=== PATIENT | female | born 1945 | race Caucasian/White ===

== ENCOUNTER → 2018-10-25 11:12 | Outpatient (CLI) | payer MEDICARE, OTHER ==
--- NOTE | 2018-10-29 18:38 | ST ---
PATIENT:INDIRA ADAN MEDICAL RECORD: [id number] SEX: F LOCATION:[facility] ORDER #: ADMISSION DATE: 10/25/18 AGE OF PATIENT: 73 REFERRING PHYSICIAN: INTERPRETING PHYSICIAN: NATAILE CARABALLO MD DATE OF SERVICE: 10/25/2018 PROCEDURE: Nuclear Stress Test. INDICATION: Angina, abnormal ECG, shortness of breath. She was exercised on standard Lexiscan protocol with 33 mCi of sestamibi injected at peak stress, 11 mCi used previously for rest images. FINDINGS: Gated SPECT reveals a preserved ejection fraction at 67% with decreased thickening and brightening throughout the anterior segments. SPECT imaging: Cardiolite was used as myocardial perfusion agent. There was a fixed perfusion defect anteriorly, possibly breast artifact, possibly previous myocardial infarction. It definitely improves with stress. There is clearly no evidence of reversible ischemia and the remaining segments with homogeneous uptake at rest and stress. OVERALL IMPRESSION: This is a minimally abnormal nuclear stress test, fixed perfusion defect anteriorly seen on rest images that improves with stress, possibly breast artifact, possibly a previous anterior myocardial infarction. Definitely no reversible ischemia and preserved ejection fraction. TRANSINT:[id number] Voice Confirmation ID: [id number] DOCUMENT ID: [id number] NATALIE CARABALLO MD at 1838 CC: [id number] DICTATION DATE: 10/25/18 1612 PUNCHBOARD STUFFER: 10/26/18 0016 DEP CLI 10/25/18 [facility] [address] [place] [address]
--- NOTE | 2018-10-31 14:03 | EC ---
PATIENT:INDIRA ADAN DATE OF SERVICE: 10/25/18 SEX: F MEDICAL RECORD: [id number] DATE OF : 43 LOCATION:[facility] AGE OF PATIENT: 73 ADMISSION DATE: 10/25/18 REFERRING PHYSICIAN: INTERPRETING PHYSICIAN: KEVIN GARIBAY MD ECHOCARDIOGRAM REPORT ECHO CHARGES 4 ECHO COMPLETE Date: 10/25/18 CLINICAL DIAGNOSIS: MURMUR/TAPIA/ANGINA/ABNORMAL EKG H/O HTN ECHOCARDIOGRAPHIC MEASUREMENTS (adult normal given) AC root (d.<3.7cm) 3.3 cm LV Septum d (<1.2 cm> 1.7 cm Valve Excursion 2.1 cm LV Septum (systole) 2.5 cm Left Atria (s.<4.0cm> 4.7 cm LVPW d(<1.2cm) 1.3 cm RV (d.<2.3cm) 2.9 cm LVPW (sytole) 2.0 cm LV diastole(<5.6CM) 5.9 cm MV E-F(>70mm/sec) cm LV systole 3.3 cm LVOT Diameter 1.9 cm MV exc.(>10mm) cm Est.ejection fraction (50-75%) % DOPPLER: LVIT cm/sec A 130 cm/sec E 102 cm/sec LA cm/sec RVSP 33.0 mmHg LVOT 107 cm/sec AOP1/2T m/s Asc. Ao 217 cm/sec RVOT 87.0 cm/sec RA cm/sec PA 125 cm/sec AV Gradient Peak 19.0 mmHg AV Mean 9.9 mmHg AV Area 1.4 cm MV Gradient Peak 8.0 mmHg MV Mean 3.3 mmHg MV Area cm COMMENTS: OP - HC Photography Professor: 1 CARIN [facility] Pigskin Trimmer: 3 Dr. Olivera TAPE# PACS Pericardial Effusion Y DATE OF SERVICE: Adequate 2D echo, color flow, spectral Doppler, and M-Mode. LVH is present. LV internal dimensions are normal. Wall motion is normal. EF is greater than or equal to 55%. Aortic valve sclerosis with a peak velocity of 19 mmHg putting this in the very mild range. Left atrium is dilated at 4.7 cm. Mitral valve shows no prolapse. Moderate MR. Right-sided chambers grossly normal. Moderate TR. TRANSINT:[id number] Voice Confirmation ID: [id number] DOCUMENT ID: [id number] ECHOCARDIOGRAM REPORT [id number] INDIRA ADAN,KEVIN Ray MD at 1403 CC: [id number] DICTATION DATE: 10/29/18 1255 PROJECT PRODUCTION ENGINEER: 10/29/18 1306 DEP CLI 10/25/18 [place] [id number] [place] [id number]
== END | disposition home or self-care (01) ==
LOC: D.HCCARDIO 11:00
PROVIDERS: ATTEND Internal Medicine Interventional Cardiology
DX: I20.9 Angina pectoris, unspecified (principal)

== ENCOUNTER → 2018-12-19 07:18 | Outpatient (CLI) | payer MEDICARE, OTHER | END | disposition home or self-care (01) | LOC: D.NM 07:18 | PROVIDERS: ATTEND Orthopaedic Surgery | DX: Z96.651 Presence of right artificial knee joint (principal) ==

== ENCOUNTER → 2019-01-08 16:47 | Outpatient (CLI) | payer MEDICARE, OTHER | END | disposition home or self-care (01) | LOC: D.LABREF 16:47 | PROVIDERS: ATTEND Orthopaedic Surgery | DX: M19.012 Primary osteoarthritis, left shoulder (principal) ==

== ENCOUNTER 2019-01-09 14:58 | Inpatient (IN) | payer MEDICARE, OTHER ==
[~2019-01-09] VITALS: Ht 172.7 cm; Wt 136.1 kg
[2019-01-25] MEDS ORDERED: FUROSEMIDE40 MG PO (14:02)
[2019-01-25] MEDS ORDERED: NEURONTIN 300300 MG PO (14:03)
[2019-01-25] MEDS ORDERED: XANAX0.5 MG PO (14:03)
[2019-01-25] MEDS ORDERED: K-TAB10 MEQ PO (14:04)
[2019-01-25] MEDS ORDERED: GLIMEPIRIDE2 MG PO (14:05)
[2019-01-25] MEDS ORDERED: HYDROCODON-ACET15 ML PO (14:06)
[2019-01-25 14:10] LABS: BASOPHILS 0.5 % (0-2); HEMATOCRIT 40.4 % (36.0-48.0); HEMOGLOBIN 13.7 g/dL (12-16); IMMATURE GRANULOCYTES 0.5 % (0-5); LYMPHOCYTES 35.6 % (15-50); MCH 31.7 pg (26.0-34.0); MCHC 33.9 g/dL (31.0-37.0); MCV 93.5 fL (80.0-100.0); MEAN PLATELET VOLUME 10.2 fL (7.4-10.4); MONOCYTES 9.4 % (2-11); PLATELET COUNT 104 10x3/uL (130-400); RBC 4.32 10x6/uL (4.00-5.40); RDW 13.8 % (11.5-14.5); WBC 4.4 10x3/uL (4.8-10.8)
[2019-01-25] MEDS ORDERED: GLUCOPHAGE500 MG PO (14:11)
[2019-01-25] MEDS ORDERED: VOLTAREN75 MG PO (14:12)
[2019-01-25] MEDS ORDERED: GLUCOPHAGE1000 MG PO (14:12)
[2019-01-25] MEDS ORDERED: RANITIDINE HCL150 M1 PO (14:13)
[2019-01-25] MEDS ORDERED: TOPROL XL100 MG PO (14:13)
[2019-01-25 14:22] LABS: APPEARANCE CLEAR (CLEAR); BILIRUBIN NEGATIVE (NEGATIVE); COLOR YELLOW (YELLOW); GLUCOSE NEGATIVE (NEGATIVE); INR 1.17 (0.85-1.17); KETONE NEGATIVE (NEGATIVE); NITRITE POSITIVE (NEGATIVE); PROTEIN TRACE mg/dL (NEGATIVE); PROTIME 14.4 SECONDS (11.6-15.0); UROBILINOGEN NORMAL (NORMAL)
[2019-01-25 14:23] LABS: APTT 35.5 SECONDS (22.8-39.4); CALCIUM 8.7 mg/dL (8.5-10.1); CARBON DIOXIDE 27.9 mmol/L (21.0-32.0); CREATININE - SERUM 0.8 mg/dL (0.6-1.3); POTASSIUM - SERUM 3.9 mmol/L (3.5-5.1)
[2019-01-25 14:27] LABS: BACTERIA MANY /hpf (NEGATIVE); EPITHELIAL CELLS 0-5 /hpf (0-5); RED CELLS - URINE NONE SEEN /hpf (0-5); WHITE CELLS - URINE 0-5 /hpf (NEGATIVE)
[2019-02-04] VITALS (9 sets, daily range): BP systolic 136–210; BP diastolic 73–84; BMI 45.7
[2019-02-04 08:13] LABS: BASOPHILS 0.6 % (0-2); EOSINOPHILS 5.2 % (0-7); HEMATOCRIT 37.2 % (36.0-48.0); HEMOGLOBIN 12.7 g/dL (12-16); IMMATURE GRANULOCYTES 0.3 % (0-5); LYMPHOCYTES 36.9 % (15-50); MCH 31.4 pg (26.0-34.0); MCHC 34.1 g/dL (31.0-37.0); MCV 92.1 fL (80.0-100.0); MONOCYTES 10.2 % (2-11); NEUTROPHILS 46.8 % (40-80); PLATELET COUNT 89 10x3/uL (130-400); RBC 4.04 10x6/uL (4.00-5.40); RDW 13.6 % (11.5-14.5); WBC 3.3 10x3/uL (4.8-10.8)
[2019-02-04 08:14] LABS: APPEARANCE CLEAR (CLEAR); BILIRUBIN NEGATIVE (NEGATIVE); COLOR DK YELLOW (YELLOW); GLUCOSE NEGATIVE (NEGATIVE); KETONE NEGATIVE (NEGATIVE); NITRITE NEGATIVE (NEGATIVE); PROTEIN NEGATIVE (NEGATIVE)
[2019-02-04 08:21] LABS: ANION GAP 10.6 mmol/L (8-16); CARBON DIOXIDE 28.3 mmol/L (21.0-32.0); CREATININE - SERUM 0.8 mg/dL (0.6-1.3); POTASSIUM - SERUM 3.9 mmol/L (3.5-5.1)
[2019-02-04 08:43] LABS: PLATELET ESTIMATE DECREASED
--- NOTE | 2019-02-04 10:31 | NUR ---
CALLED ANESTHESIA (GARCÍA) AT THIS TIME REGARDING PT BP. RECIEVED VERBAL ORDER FOR 10MG OF HYDRALAZINE IV.
--- NOTE | 2019-02-04 10:32 | NUR ---
HYDRALIZE ADMINISTERED AT THIS TIME REPEAT BP TAKEN AT THIS TIME. INITIAL BP 197/74. BP 157/62 AFTER ADMINISTRATION OF 10MG OF HYDRALAZINE.
--- NOTE | 2019-02-04 14:44 | NUR ---
PLASA BLADE SET AT 6/8 BOVIE PAD RIGHT FLANK [id number] EXP 11/02/20 PREPPED FROM LEFT SHOULDER TO FINGERS CIRCUMFERENTIALLY WITH HIBICLENS AND ALCOHOL AND THEN CHLORAPREP TRAFFIC MONITORED IN AND OUT OF ROOT AND KEPT TO A MINIMUM LAMINAR FLOW NOT IN USE
--- NOTE | 2019-02-04 20:00 | NUR ---
A/O WITH NO SIGNS OF ACUTE DISTRESS. IV TO THE RT FOREARM WITH NO REDNESS OR SWELLING. LT ARM IN SLING WITH DRESSING, CDI AND PULSE NOTED. SOME BLOOD NOTED THROUGH DRESSING. REINFORCED DRESSING WITH 4X4 GAUZE AND APPLIED ICE PACK X2. COMPLAINING OF 6/10 PAIN IN LT SHOULDER. APPLIED PLEXI BOOTS TO FEET. DENIES ANY OTHER NEEDS AT THIS TIME. CONTINUE PLAN OF CARE.
[2019-02-05] VITALS: BP 155/75
--- NOTE | 2019-02-05 00:30 | NUR ---
TEMP OF 101.5. ROOM WAS WARM AND HAD ON FOUR BLANKETS. REMOVED ALL BLANKETS EXCEPT SHEET AND TURNED TEMP DOWN. ENCOURAGED COOL FLUIDS AND IS. ALSO GAVE PRN PAIN MED FOR TYLENOL AND FOR PAIN 8/10. WILL CONTINUE TO MONITOR.
[2019-02-05 04:00] VITALS: BP 131/58
[2019-02-05 06:05] LABS: HEMATOCRIT 34.4 % (36.0-48.0); HEMOGLOBIN 11.4 g/dL (12-16); MCH 31.1 pg (26.0-34.0); MCHC 33.1 g/dL (31.0-37.0); MEAN PLATELET VOLUME 9.6 fL (7.4-10.4); RBC 3.66 10x6/uL (4.00-5.40); RDW 14.1 % (11.5-14.5)
[2019-02-05 06:09] LABS: WBC 5.3 10x3/uL (4.8-10.8)
[2019-02-05 08:26] VITALS: BP 196/89
--- NOTE | 2019-02-05 08:52 | NUR ---
PERMISSION GIVEN TO SPEAK TO DAUGHTER CAMILLE. SECURITY CODE PROVIDED 7893. SCHEDULED MEDS AND PAIN MED GIVEN. PATIENT SITTING IN CHAIR. CL IN REACH. FRESH WATER PROVIDED. [facility]
[2019-02-05] MEDS ORDERED: PERCOCET 10-321 EAC1 PO (09:14)
[2019-02-05] MEDS ORDERED: SULFAMETHOXAZOL1 TA2 PO (09:14)
[2019-02-05 09:34] VITALS: Ht 172.7 cm; Wt 136.1 kg
[2019-02-05 10:02] VITALS: BP 196/89
[2019-02-05 12:24] VITALS: BP 183/63
--- NOTE | 2019-02-05 13:15 | MORECARE ---
CASE MANAGEMENT DISCHARGE SUMMARY PATIENT: INDIRA ADAN UNIT: [id number] ADM DATE: 02/04/19 AGE: 73 : 44 SEX: F ROOM/BED: D.2209 AUTHOR: SAW CANSECO PHYSICIAN: REFERRING PHYSICIAN: AMY DE OLIVEIRA MD DATE OF SERVICE: 02/05/19 Discharge Plan Patient Name: INDIRA ADAN [facility] [facility] 1945 Planned Disposition: Home Health Service Anticipated Discharge Date: Discharge Date: Expected LOS: Initial Reviewer: [email or web address] Initial Review Date: 02/04/2019 Generated: 02/05/19 2:14 pm DCPIA - Discharge Planning Initial Assessment Updated by [email or web address]: Kimberley Morales on 02/05/19 1:12 pm * Is the patient Alert and Oriented? Yes * PCP JODY * Pharmacy [facility] IN [place] * Preadmission Environment Home with Family * ADLs Independent * Equipment Other * Other Equipment LEFT CARE * List name and contact numbers for known caregivers / representatives who currently or will assist patient after discharge: RADHA (DAUGHTER) [phone] * Verbal permission to speak to the caregivers and representatives has been obtained from the patient. N/A * Community resources currently utilized None * Additional services required to return to the preadmission environment? Yes * Can the patient safely return to the preadmission environment? Yes * Has this patient been hospitalized within the prior 30 days at any hospital? No Patient Name: INDIRA ADAN Page [phone] at 1315 All edits/amendments must be made on the electronic document DICTATION DATE: 02/05/19 1314 FIRE MANAGEMENT OFFICER: BAL 02/05/19 1314 RPT#: [id number] DC DATE: STATUS: ADM IN [facility] [address] [place] [address] END OF REPORT
--- NOTE | 2019-02-05 13:23 | MORECARE ---
CASE MANAGEMENT DISCHARGE SUMMARY PATIENT: INDIRA ADAN UNIT: [id number] ADM DATE: 02/04/19 AGE: 73 : 44 SEX: F ROOM/BED: D.2200 AUTHOR: AJITH,DOC PHYSICIAN: REFERRING PHYSICIAN: AMY DE OLIVEIRA MD DATE OF SERVICE: 02/05/19 Discharge Plan Patient Name: INDIRA ADAN Facility: [facility]:[place] : 1945 Planned Disposition: Home Health Service Anticipated Discharge Date: Discharge Date: Expected LOS: Initial Reviewer: [email or web address] Initial Review Date: 02/04/2019 Generated: 02/05/19 2:22 pm Comments DCP- Discharge Planning Updated by [email or web address]: Kimberley Morales on 02/05/19 12:[address] Patient Name: INDIRA ADAN Admission Status: Elective Accout number: [id number] Admission Date: 02-04-2019 : 1945 Admission Diagnosis: Attending: AMY DE OLIVEIRA Current LOS: 1 Anticipated DC Date: Planned Disposition: Home Health Service Primary Insurance: MEDICARE A & B Discharge Planning Comments: CM received a phone called from patient's daughter Shani about discharge planning needs. Shani stated that she is staying with her mom and dad, because her dad is needing round the clock care at this time. She stated that she will be the one to drive her mom home when she is discharged and will be there to help her while she recovers. She would like her mom to have [facility] when she is discharged. She has spoke to Maddi ([employer]) and Amanda pantoja APN already today about this. Cm will send clinical and set her up with [facility]. Patient does not use any DME but does use/have a lift chair. CM will continue to follow and assist with DC planning needs. Wet Roaster: Kimberley Morales DCPIA - Discharge Planning Initial Assessment Updated by [email or web address]: Kimberley Morales on 02/05/19 1:12 pm * Is the patient Alert and Oriented? Yes * PCP JODY * [facility] [place] * Preadmission Environment Home with Family * ADLs Independent * Equipment Other * Other Equipment LEFT CARE * List name and contact numbers for known caregivers / representatives who currently or will assist patient after discharge: SHANI (DAUGHTER) [phone] * Verbal permission to speak to the caregivers and representatives has been obtained from the patient. N/A * Community resources currently utilized None * Additional services required to return to the preadmission environment? Yes * Can the patient safely return to the preadmission environment? Yes * Has this patient been hospitalized within the prior 30 days at any hospital? No External Providers External Provider: [employer] Next Contact Date: Service Request Date: Service Type: Resolution: Reviewer: Comments: Last DP export: 02/05/19 12:15 Patient Name: INDIRA ADAN Page [phone] at 1323 All edits/amendments must be made on the electronic document DICTATION DATE: 02/05/191321 NON PROFIT FINANCIAL CONTROLLER: BAL 02/05/19 1322 RPT#: [id number] DC DATE: STATUS: ADM IN [facility] [address] [place] [address] END OF REPORT
--- NOTE | 2019-02-05 15:25 | NUR ---
PATIENT RESTING. CL IN REACH. BED ALARM ON. NO NEEDS AT THIS TIME. WCTM
--- NOTE | 2019-02-05 16:13 | MORECARE ---
CASE MANAGEMENT DISCHARGE SUMMARY PATIENT: INDIRA ADAN UNIT: [id number] ADM DATE: 02/04/19 AGE: 73 : 44 SEX: F ROOM/BED: D.2205 AUTHOR: AJITH,DOC PHYSICIAN: REFERRING PHYSICIAN: AMY DE OLIVEIRA MD DATE OF SERVICE: 02/05/19 Discharge Plan Patient Name: INDIRA ADAN Facility: [facility]:[place] : 1945 Planned Disposition: Home Health Service Anticipated Discharge Date: Discharge Date: Expected LOS: Initial Reviewer: [email or web address] Initial Review Date: 02/04/2019 Generated: 02/05/19 5:12 pm Comments DCP- Discharge Planning Updated by [email or web address]: Kimberley Morales on 02/05/19 3:[address] PATIENT DISCHARGING HOME TODAY WITH [facility]. DAUGHTER WILL BE DRIVING HER HOME. CM TO FOLLOW AND ASSIST NEEDED DCP- Discharge Planning Updated by [email or web address]: Kimberley Morales on 02/05/19 12:[address] Patient Name: INDIRA ADAN Admission Status: Elective Accout number: [id number] Admission Date: 02-04-2019 : 1945 Admission Diagnosis: Attending: AMY DE OLIVEIRA Current LOS: 1 Anticipated DC Date: Planned Disposition: Home Health Service Primary Insurance: MEDICARE A & B Discharge Planning Comments: CM received a phone called from patient's daughter Shani about discharge planning needs. Shani stated that she is staying with her mom and dad, because her dad is needing round the clock care at this time. She stated that she will be the one to drive her mom home when she is discharged and will be there to help her while she recovers. She would like her mom to have [facility] when she is discharged. She has spoke to Maddi ([employer]) and Amanda pantoja APN already today about this. Cm will send clinical and set her up with [facility]. Patient does not use any DME but does use/have a lift chair. CM will continue to follow and assist with DC planning needs. Production Posting Clerk: Kimberley Morales DCPIA - Discharge Planning Initial Assessment Updated by [email or web address]: Kimberley Morales on 02/05/19 1:12 pm * Is the patient Alert and Oriented? Yes * PCP JODY * Pharmacy [facility] IN [place] * Preadmission Environment Home with Family * ADLs Independent * Equipment Other * Other Equipment LEFT CARE * List name and contact numbers for known caregivers / representatives who currently or will assist patient after discharge: SHANI (DAUGHTER) [phone] * Verbal permission to speak to the caregivers and representatives has been obtained from the patient. N/A * Community resources currently utilized None * Additional services required to return to the preadmission environment? Yes * Can the patient safely return to the preadmission environment? Yes * Has this patient been hospitalized within the prior 30 days at any hospital? No Last DP export: 02/05/19 12:23 Patient Name: INDIRA ADAN Page 27796 at 1613 All edits/amendments must be made on the electronic document DICTATION DATE: 02/05/191611 VICE PRESIDENT OF NURSING: BAL 02/05/191611 RPT#: [id number] DC DATE: STATUS: ADM IN [facility] [address] [place] [address] END OF REPORT
--- NOTE | 2019-02-05 17:20 | NUR ---
IV THERAPY DISCONTINUED FROM RIGHT FOREARM WITH TIP INTACT. DISCHARGE INSTRUCTIONS GIVEN. PATIENT VERBALIZED UNDERSTANDING. FAMILY TO ARRIVE. WILL WHEEL DOWN WHEN HERE.
--- NOTE | 2019-02-06 09:48 | MORECARE ---
CASE MANAGEMENT DISCHARGE SUMMARY PATIENT: INDIRA ADAN UNIT: [id number] ADM DATE: 02/04/19 AGE: 73 : 44 SEX: F ROOM/BED: D.2201 AUTHOR: SAW CANSECO PHYSICIAN: REFERRING PHYSICIAN: AMY DE OLIVEIRA MD DATE OF SERVICE: 02/06/19 Discharge Plan Patient Name: INDIRA ADAN Facility: [facility]:[place] : 1945 Planned Disposition: Home Health Service Anticipated Discharge Date: Discharge Date: 02/05/2019 Expected LOS: Initial Reviewer: [email or web address] Initial Review Date: 02/04/2019 Generated: 02/06/19 10:48 am Comments DCP- Discharge Planning Updated by [email or web address]: Kimberley Morales on 02/05/19 3:[address] PATIENT DISCHARGING HOME TODAY WITH [facility]. DAUGHTER WILL BE DRIVING HER HOME. CM TO FOLLOW AND ASSIST NEEDED DCP- Discharge Planning Updated by [email or web address]: Kimberley Morales on 02/05/19 12:[address] Patient Name: INDIRA ADAN Admission Status: Elective Accout number: [id number] Admission Date: 02-04-2019 : 1945 Admission Diagnosis: Attending: AMY DE OLIVEIRA Current LOS: 1 Anticipated DC Date: Planned Disposition: Home Health Service Primary Insurance: MEDICARE A & B Discharge Planning Comments: CM received a phone called from patient's daughter Shani about discharge planning needs. Shani stated that she is staying with her mom and dad, because her dad is needing round the clock care at this time. She stated that she will be the one to drive her mom home when she is discharged and will be there to help her while she recovers. She would like her mom to have [facility] when she is discharged. She has spoke to Maddi ([employer]) and Amanda pantoja APN already today about this. Cm will send clinical and set her up with [facility]. Patient does not use any DME but does use/have a lift chair. CM will continue to follow and assist with DC planning needs. Practical Nursing Teacher: Kimberley Morales DCPIA - Discharge Planning Initial Assessment Updated by [email or web address]: Kimberley Morales on 02/05/19 1:12 pm * Is the patient Alert and Oriented? Yes * PCP JODY * Pharmacy [facility] IN [place] * Preadmission Environment Home with Family * ADLs Independent * Equipment Other * Other Equipment LEFT CARE * List name and contact numbers for known caregivers / representatives who currently or will assist patient after discharge: SHANI (DAUGHTER) [phone] * Verbal permission to speak to the caregivers and representatives has been obtained from the patient. N/A * Community resources currently utilized None * Additional services required to return to the preadmission environment? Yes * Can the patient safely return to the preadmission environment? Yes * Has this patient been hospitalized within the prior 30 days at any hospital? No Last DP export: 02/05/19 3:13 Patient Name: INDIRA ADAN Page [phone] at 0948 All edits/amendments must be made on the electronic document DICTATION DATE: 02/06/19947 VETERANS SERVICE REPRESENTATIVE: BAL 02/06/19947 RPT#: [id number] DC DATE:02/05/19 STATUS: DIS IN [facility] [address] [place] [address] END OF REPORT
--- NOTE | 2019-03-11 16:11 | OP ---
PATIENT NAME: INDIRA ADAN MEDICAL RECORD: [id number] :43 LOCATION:D.MS [id number] ADMISSION DATE:02/04/19 SURGEON: AMY DE OLIVEIRA MD DATE OF OPERATION: 02/04/2019 PREOPERATIVE DIAGNOSIS: Rotator cuff arthropathy of the left shoulder. POSTOPERATIVE DIAGNOSIS: Rotator cuff arthropathy of the left shoulder. PROCEDURE: Left total shoulder arthroplasty. SURGEON: Amy De Oliveira MD ANESTHESIA: General. INTRAOPERATIVE COMPLICATIONS: None. IMPLANTS USED: Tornier reverse total shoulder arthroplasty system. SURGEON: Amy De Oliveira MD ANESTHESIA: General. INTRAOPERATIVE COMPLICATIONS: None. SUMMARY OF PATHOLOGIC FINDINGS: The patient had severe rotator cuff arthropathy with excoriation of the lesser tuberosity and greater tuberosity on subacromial articulation. OPERATIVE SUMMARY IN DETAIL: After obtaining the appropriate preoperative orthopedic surgery consent as well as anesthetic consultation, evaluation and clearance, the patient was brought to the operating room and placed on the operating table in supine position. After general laryngeal mask airway was administered, the patient was placed in beach chair position. All pressure points were well padded. She was held firmly to the operating table using the vacuum pack suction system. Left upper extremity and shoulder were then prepped and draped in a routine sterile fashion. Deltopectoral incision was taken down to the level of the clavipectoral fascia. Clavipectoral fascia was incised. Conjoined tendon was gently retracted medially, deltoid was retracted laterally using the brown retractor. Residual subscap was taken down. The shoulder was then dislocated into the incision. Proximal humeral cut was made using the Tornier humeral cutting guide. Serial and sequential reaming and broaching were done for a size 4. Size [address] stem was [address] into [address] with the humeral head protection cutter, then screwed into the trial. The glenoid was then approached. Circumferential labrectomy was followed by centralized pinning with reaming of the glenoid followed by placement of the metaglene with a central screw as well as peripheral screws. Excellent fixation was achieved. The glenosphere size 36 was then tamped on the Vieira taper and then secured with a central screw tamped and secured again. At this point, the final component and baseplate were put in after trials had ascertained the appropriate size of the implant. These were put into place. The shoulder was reduced, taken through range of motion and found to be stable in all planes. Wound was then copiously irrigated. A gram of vancomycin and a gram of tobramycin were put into the wound. The deltopectoral interval was closed with #1 Vicryl followed by skin closure with #1 Vicryl, 2-0 Vicryl and skin renetta by Yonatan Reddy APRN. OPERATIVE REPORT [id number] ADAN,INDIRA Sterile dressings were applied. The patient was awakened and taken to the recovery room in stable condition. All final needle and sponge counts were correct. TRANSINT:[id number] Voice Confirmation ID: [id number] DOCUMENT ID: [id number] 03/11/2019 Edited for darrell Bar. YENNIFER GONZALEZ, AMY PARRA at 1611 CC: [id number] DICTATION DATE: 02/14/19 1148 BIOFUELS PRODUCTION ASSOCIATE: 02/14/19 1224 DIS IN 02/05/19 [id number] [place] [address]
== END 2019-02-05 17:52 | disposition home health service (06) | DRG 483 ==
LOC: D.SDCHOLD 01-28 13:00 → D.MS 02-04 07:27 → D.SDCHOLD 02-04 10:30 → D.MS 02-04 16:37
PROVIDERS: ADMIT Orthopaedic Surgery; ATTEND Orthopaedic Surgery
PROC: 0RRK00Z Replacement of Left Shoulder Joint with Reverse Ball and Socket Synthetic Substitute, Open Approach (ICD-10-PCS; principal; 2019-02-04 10:30)
DX: M75.102 Unspecified rotator cuff tear or rupture of left shoulder, not specified as traumatic (principal); E11.9 Type 2 diabetes mellitus without complications; I10 Essential (primary) hypertension; K21.9 Gastro-esophageal reflux disease without esophagitis; F41.9 Anxiety disorder, unspecified

== ENCOUNTER 2019-02-18 12:33 | Inpatient (IN) | payer MEDICARE, OTHER ==
[~2019-02-18] VITALS: Ht 172.7 cm; Wt 151.3 kg
[~2019-02-18 12:33] MED LIST: FUROSEMIDE40 MG PO; GLIMEPIRIDE2 MG PO; GLUCOPHAGE1000 MG PO; GLUCOPHAGE500 MG PO; HYDROCODON-ACET15 ML PO; K-TAB10 MEQ PO; NEURONTIN 300300 MG PO; PERCOCET 10-321 EAC1 PO; RANITIDINE HCL150 M1 PO; SULFAMETHOXAZOL1 TA2 PO; TOPROL XL100 MG PO; VOLTAREN75 MG PO; XANAX0.5 MG PO
--- NOTE | 2019-02-18 17:00 | NUR ---
RECEIVED PT TO ROOM 2100 VIA STRETCHER, X5 ASSIST TO TRANSFER PT FROM STRETCHER TO BED. PT A/O X4, RESP EVEN AND NONLABORED ON RA. ORIENTED PT TO ROOM AND CALL LIGHT, WILL ASSESS PT AND START PLAN OF CARE.
[2019-02-18 17:04] VITALS: BP 148/60; BMI 52.7
[2019-02-18] MEDS ORDERED: NEXIUM20 MG PO (18:37)
--- NOTE | 2019-02-18 19:38 | NUR ---
ASSISTED PT UP IN BED AND WITH COMFORT ARTHUR GOLDSMITH HERE NOW TO SEE PT LCTA FAMILY IS FOCUSED ON GETTING PT FOOD.BED LOW AND LOCKED SKIN WARM AND DRY PT IS IN ISOLATION FOR CDIFF
[2019-02-18 20:48] VITALS: BP 148/54
[2019-02-19 00:19] VITALS: BP 126/45
--- NOTE | 2019-02-19 01:09 | NUR ---
I have reviewed this patient and I concur with the Shift Assessment completed by the Licensed Practical Nurse today this shift.
[2019-02-19 04:30] VITALS: BP 133/55
[2019-02-19 06:17] LABS: BASOPHILS 0.2 % (0-2); EOSINOPHILS 4.7 % (0-7); HEMATOCRIT 32.3 % (36.0-48.0); HEMOGLOBIN 10.3 g/dL (12-16); IMMATURE GRANULOCYTES 0.6 % (0-5); LYMPHOCYTES 13.2 % (15-50); MCH 30.4 pg (26.0-34.0); MCHC 31.9 g/dL (31.0-37.0); MCV 95.3 fL (80.0-100.0); MEAN PLATELET VOLUME 10.7 fL (7.4-10.4); MONOCYTES 9.2 % (2-11); NEUTROPHILS 72.1 % (40-80); PLATELET COUNT 106 10x3/uL (130-400); RBC 3.39 10x6/uL (4.00-5.40); RDW 14.5 % (11.5-14.5); WBC 9.6 10x3/uL (4.8-10.8)
[2019-02-19 06:38] LABS: ANION GAP 13.4 mmol/L (8-16); CALCIUM 7.6 mg/dL (8.5-10.1); CARBON DIOXIDE 23.8 mmol/L (21.0-32.0); MAGNESIUM - SERUM 1.5 mg/dL (1.8-2.4); PHOSPHOROUS 2.6 mg/dL (2.5-4.9); POTASSIUM - SERUM 3.2 mmol/L (3.5-5.1); VANCOMYCIN - RANDOM 10.6 ug/mL (10.0-20.0)
[2019-02-19 06:47] LABS: APTT 41.5 SECONDS (22.8-39.4); INR 1.44 (0.85-1.17)
[2019-02-19 07:44] VITALS: BP 158/50
--- NOTE | 2019-02-19 08:18 | NUR ---
REPORT RECEIVED. WILL CONTINUE WITH POC. PT CURRENTLY LYING ASLEEP WITH EYES CLOSED AT THIS TIME. RR EVEN AND UNLABORED ON 2L 02. R.FOR PIV IS SALINE LOCKED. NO S/S OF DISTRESS NOTED. PT DENIES ANY NEEDS AT THIS TIME. WILL CTM.
[2019-02-19 11:41] VITALS: BP 158/49
--- NOTE | 2019-02-19 12:36 | NUR ---
Rehab Note- Acute Inpatient REhab prescreen order received. The patient is a new admit and still having an acute work up, has a pending PT Eval. Will continue to follow at this time. Thank you for this referral! Julianna Abreu RN Clinical Liaison, [facility] Rehab
[2019-02-19 13:47] VITALS: Ht 172.7 cm; Wt 151.3 kg
--- NOTE | 2019-02-19 14:51 | NUR ---
I have reviewed this patient and I concur with the Shift Assessment completed by the Licensed Practical Nurse today this shift.
[2019-02-19 14:56] VITALS: BP 144/48
--- NOTE | 2019-02-19 19:05 | NUR ---
PT ALERT AND OX4 BEING ASSISTED BY STAFF AT THIS TIME PT IS MODEST AND WILL NOT ALLOW ME TO FULLY EXAM BED IS LOW AND LOCKED SRX2 AND CALL LIGHT IS IN REACH
[2019-02-19 20:00] VITALS: BP 142/52
--- NOTE | 2019-02-19 21:40 | NUR ---
SPENT SEVERAL MINUTES ON THE PHONE WITH PTs DAUGHTER WHO GAVE CORRECT CODE FOR INFORMATION LOTS OF QUESTIONS WERE ASKED ABOUT HER TESTS AND WAS INSISTINT THAT SHE HAVE A OUTSIDE CATH AND THAT HER XANAX BEGIVEN ROUTINE I GAVE PT A XANAX HER AND THE SUBSIQUENTLY PT ASKED FOR AND I WILL PASS INFORMATION ON. I HAD TO HANG UP WHEN A RAPID WAS CALLED ON A DIFERENT PT IF SHE CALLS BACK I PLAN TO LET HER SPEAK WITH CHARGE OR COUNTY LIBRARY DIRECTOR BECAUSE I HAVE NOT BEEN ABLE TO EXPLAIN TO HER OF WHAT SHES ASKING ME TO DO
[2019-02-20] VITALS: BP 161/52
--- NOTE | 2019-02-20 01:43 | NUR ---
I have reviewed this patient and I concur with the Shift Assessment completed by the Licensed Practical Nurse today this shift.
[2019-02-20 04:00] VITALS: BP 126/48
[2019-02-20 04:43] LABS: BASOPHILS 0.4 % (0-2); EOSINOPHILS 4.4 % (0-7); HEMATOCRIT 31.4 % (36.0-48.0); IMMATURE GRANULOCYTES 0.6 % (0-5); LYMPHOCYTES 17.6 % (15-50); MCH 30.4 pg (26.0-34.0); MCHC 31.8 g/dL (31.0-37.0); MCV 95.4 fL (80.0-100.0); MEAN PLATELET VOLUME 10.1 fL (7.4-10.4); MONOCYTES 8.9 % (2-11); NEUTROPHILS 68.1 % (40-80); RBC 3.29 10x6/uL (4.00-5.40); RDW 14.5 % (11.5-14.5)
[2019-02-20 04:52] LABS: PLATELET COUNT 134 10x3/uL (130-400); WBC 7.1 10x3/uL (4.8-10.8)
[2019-02-20 04:58] LABS: ANION GAP 10.6 mmol/L (8-16); CALCIUM 7.5 mg/dL (8.5-10.1); CARBON DIOXIDE 24.5 mmol/L (21.0-32.0); MAGNESIUM - SERUM 1.5 mg/dL (1.8-2.4); PHOSPHOROUS 2.7 mg/dL (2.5-4.9)
[2019-02-20 05:00] LABS: POTASSIUM - SERUM 3.1 mmol/L (3.5-5.1)
[2019-02-20 09:01] VITALS: BP 130/62
--- NOTE | 2019-02-20 09:10 | NUR ---
VOID X1. PT CLEANED. LINENS AND GOWN CHANGED. PT REPOSITIONED TO COMFORT. PAIN MEDICATION GIVEN PER REQUEST
--- NOTE | 2019-02-20 09:53 | NUR ---
I have reviewed this patient and I concur with the Shift Assessment completed by the Licensed Practical Nurse today this shift.
--- NOTE | 2019-02-20 11:20 | NUR ---
PT UP WITH PHYSICAL THERAPY AND OT. SHOULDER SLING PLACED WHILE STANDING. OK FOR PT TO TAKE SHOULDER SLING OFF WHILE IN BED PER OT. VOID X1. PRIVACY MAINTAINED PER PT AND FAMILY REQUEST. LINENS CHANGED. PUREWICK PLACED AND SUCTION TURNED ON. PT REPOSITIONED TO COMFORT. CALL LIGHT WITHIN REACH. LEGS ELEVATED. PT EATING AT THIS TIME AND DENIES FURTHER NEEDS OR PAIN. WILL CONTINUE TO MONITOR.
[2019-02-20 12:49] VITALS: BP 145/55
[2019-02-20 13:07] LABS: APPEARANCE CLEAR (CLEAR); BILIRUBIN NEGATIVE (NEGATIVE); COLOR YELLOW (YELLOW); GLUCOSE NEGATIVE (NEGATIVE); KETONE NEGATIVE (NEGATIVE); NITRITE NEGATIVE (NEGATIVE); PROTEIN NEGATIVE (NEGATIVE); SPECIFIC GRAVITY 1.015 (1.005-1.020); UROBILINOGEN NORMAL (NORMAL)
--- NOTE | 2019-02-20 13:33 | MORECARE ---
CASE MANAGEMENT DISCHARGE SUMMARY PATIENT: INDIRA ADAN UNIT: [id number] ADM DATE: 02/18/19 AGE: 73 : 44 SEX: F ROOM/BED: D.210 AUTHOR: SAW CANSECO PHYSICIAN: REFERRING PHYSICIAN: ALLA MUNGUIA MD DATE OF SERVICE: 02/20/19 Discharge Plan Patient Name: INDIRA ADAN [facility] [facility] 1945 Planned Disposition: Inpatient Rehab Anticipated Discharge Date: Discharge Date: Expected LOS: Initial Reviewer: [email or web address] Initial Review Date: 02/20/2019 Generated: 02/20/19 2:32 pm DCPIA - Discharge Planning Initial Assessment Updated by [email or web address]: Jose Rafael Meadows on 02/20/19 1:30 pm * Is the patient Alert and Oriented? Yes * How many steps to enter\exit or inside your home? NONE * PCP DR. VERA * Pharmacy [facility] IN [place] * Preadmission Environment Home with Family * ADLs Independent * Equipment Other * Other Equipment LIFT CHAIR NO MEDICAL EQUIPMENT PROVIDER PREFERENCE * List name and contact numbers for known caregivers / representatives who currently or will assist patient after discharge: RADHA THOMPSONMENTS, DTR, * Verbal permission to speak to the caregivers and representatives has been obtained from the patient. Yes * Community resources currently utilized Home Health * Please name any agencies selected above. [facility] * Additional services required to return to the preadmission environment? Yes * Can the patient safely return to the preadmission environment? Yes * Has this patient been hospitalized within the prior 30 days at any hospital? Yes Patient Name: INDIRA ADAN Page 40815 at 1333 All edits/amendments must be made on the electronic document DICTATION DATE: 02/20/191331 DIRECT CUSTOMER SERVICE REPRESENTATIVE: BAL 02/20/191331 RPT#: [id number] DC DATE: STATUS: ADM IN [facility] [address] [place] [address] END OF REPORT
--- NOTE | 2019-02-20 13:38 | EC ---
PATIENT:INDIRA ADAN DATE OF SERVICE: 02/18/19 SEX: F MEDICAL RECORD: [id number] DATE OF : [birth year] LOCATION:D.M2 D.210 AGE OF PATIENT: 73 ADMISSION DATE: 02/18/19 REFERRING PHYSICIAN: INTERPRETING PHYSICIAN: KEVIN GARIBAY MD ECHOCARDIOGRAM REPORT ECHO CHARGES 4 ECHO COMPLETE Date: 02/19/19 CLINICAL DIAGNOSIS: CHF, EDEMA, SOB ECHOCARDIOGRAPHIC MEASUREMENTS (adult normal given) AC root (d.<3.7cm) 3.1 cm LV Septum d (<1.2 cm> 1.0 cm Valve Excursion 1.5 cm LV Septum (systole) 1.3 cm Left Atria (s.<4.0cm> 3.7 cm LVPW d(<1.2cm) 1.0 cm RV (d.<2.3cm) 3.5 cm LVPW (sytole) 1.4 cm LV diastole(<5.6CM) 6.1 cm MV E-F(>70mm/sec) cm LV systole 5.3 cm LVOT Diameter 2.1 cm MV exc.(>10mm) cm Est.ejection fraction (50-75%) % DOPPLER: LVIT cm/sec A 77 cm/sec E 93 cm/sec LA cm/sec RVSP 41.9 mmHg LVOT 111 cm/sec AOP1/2T m/s Asc. Ao 186 cm/sec RVOT 94 cm/sec RA cm/sec PA 145 cm/sec AV Gradient Peak 13.8 mmHg AV Mean 6.5 mmHg AV Area 2.6 cm MV Gradient Peak 4.3 mmHg MV Mean 2.5 mmHg MV Area cm COMMENTS: Director Of Social Services: Alexandra LYNCH Solar Installation Technician: 3 Dr. Olivera TAPE# PACS Pericardial Effusion N DATE OF SERVICE: Adequate 2D, Color Flow, Spectral Doppler, and M-Mode No LVH. LV internal dimensions are normal. Wall motion is normal. EF is greater or equal to than 55%. Aortic valve is tricuspid. No evidence of stenosis by Doppler interrogation. Left atrium normal at 3.7 cm. Mitral valve shows no prolapse. Trace MR. Right-sided chambers grossly normal. Trace TR. TRANSINT:[id number] Voice Confirmation ID: [id number] DOCUMENT ID: [id number] ECHOCARDIOGRAM REPORT [id number] ADANINDIRA CAICEDO KEVIN GARIBAY MD at 1338 CC: [id number] DICTATION DATE: 02/19/19 1456 RESOURCE ANALYST: 02/20/19 0035 ADM IN [place] [id number] [place] [id number]
--- NOTE | 2019-02-20 13:42 | MORECARE ---
CASE MANAGEMENT DISCHARGE SUMMARY PATIENT: INDIRA ADAN UNIT: [id number] ADM DATE: 02/18/19 AGE: 73 : 43 SEX: F ROOM/BED: D.2104 AUTHOR: AJITH,DOC PHYSICIAN: REFERRING PHYSICIAN: ALLA MUNGUIA MD DATE OF SERVICE: 02/20/19 Discharge Plan Patient Name: INDIRA ADAN [facility] [facility] 1945 Planned Disposition: Inpatient Rehab Anticipated Discharge Date: Discharge Date: Expected LOS: Initial Reviewer: [id number] Initial Review Date: 02/20/2019 Generated: 02/20/19 2:41 pm Comments DCP- Discharge Planning Updated by [id number]: Jose Rafael Meadows on 02/20/19 12:[address] Patient Name: INDIRA ADAN Admission Status: Elective Accout number: [id number] Admission Date: 02-18-2019 : 1945 Admission Diagnosis:ENTEROCOLITIS D/T CLOSTRIDIUM DIFFICILE, NOT SPCF RE Attending: ALLA MUNGUIA Current LOS: 2 Anticipated DC Date: Planned Disposition: Inpatient Rehab Primary Insurance: MEDICARE A & B PLANNED EXTERNAL PROVIDER: [facility] INPATIENT REHAB Discharge Planning Comments: CM RECEIVED ORDER FOR INPATIENT REHAB PRESCREENING. CM MET WITH PT IN ROOM TO DISCUSS DISCHARGE PLANNING AND NEEDS. PT REPORTS LIVING AT HOME INDEPENDENTLY WITH HER DAUGHTER. PT HAS NO MEDICAL EQUIPMENT AND [facility]. PT DOES NOT REMEMBER THE LAST COUPLE OF DAYS AT HOME, SHE WAS HOME AFTER SURGERY, WAS STILL ABLE TO GET UP AND TAKE CARE OF HERSELF. CM DISCUSSED AVAILABILITY OF HOME HEALTH, REHAB SERVICES AND MEDICAL EQUIPMENT. PT WOULD LIKE REHAB AT [facility]PATIENT [facility]. CM REVIEWED THERAPY NOTES WITH PT. PT FEELS SHE CAN PARTICIPATE FULLY WITH THREE HOURS OF PROGRESSIVE THERAPY; CM ENCOURAGED PT TO TRY HARD AND WORK WITH THERAPY TO SHOW HER FULL POTENTIAL. CM ASKED ABOUT SECOND PLAN FOR REHAB, DISCUSSED SNF FACILITY REHAB. PT STATES IF SHE HAS TO GO, SHE WOULD GO TO ONE IN [place], EITHER [facility] OR [facility]. PT WOULD HAVE TO TALK TO DAUGHTER TO GET A FIRM DECISION ON WHICH ONE SHE PREFERS MORE. CHOICE SIGNED FOR [facility] AND [facility], TO USE IF DECLINED INPATIENT REHAB. PT REPORTS HER DAUGHTER WILL PICK HER UP FOR DISCHARGE HOME. IMPORTANT MESSAGE FROM MEDICARE PROVIDED AND EXPLAINED. CM NOTIFIED MARQUEZ OF INPATIENT REHAB OF PT'S DESIRE FOR INPATIENT REHAB SERVICES AT [facility]. CM WAITING RESULTS OF INPATIENT REHAB PRESCREENING WELL ADMISSION DETERMINATION FROM [facility] INPATIENT REHAB. Molded Goods Operator: Jose Rafael Meadows DCPIA - Discharge Planning Initial Assessment Updated by RONDA: Jose Rafael Meadows on 02/20/19 1:30 pm * Is the patient Alert and Oriented? Yes * How many steps to enter\exit or inside your home? NONE * PCP DR. VERA * Pharmacy [facility] IN [place] * Preadmission Environment Home with Family * ADLs Independent * Equipment Other * Other Equipment LIFT CHAIR NO MEDICAL EQUIPMENT PROVIDER PREFERENCE * List name and contact numbers for known caregivers / representatives who currently or will assist patient after discharge: RADHA ADAN, DTCarlos, * Verbal permission to speak to the caregivers and representatives has been obtained from the patient. Yes * Community resources currently utilized Home Health * Please name any agencies selected above. [facility] * Additional services required to return to the preadmission environment? Yes * Can the patient safely return to the preadmission environment? Yes * Has this patient been hospitalized within the prior 30 days at any hospital? Yes Coverage Notice Reviewer: [id number] Meadows Notice Issued Date-Time: 02/20/2019 9:55 Notice Type: IM Discharge Notice Notice Delivered To: Patient Relationship to Patient: Cook Pickled Meat Name: Delivery Method: HAND - Hand Delivered Faye Days: Prior Verbal Notification: Recipient Understood Notice: Yes Recipient Signature: Yes Med Rec Note Co-signed by Attending: Coverage Notice Comment: Reviewer: [id number] Matthew Meadows Notice Issued Date-Time: 02/20/2019 9:55 Notice Type: Patient Choice Letter Notice Delivered To: Patient Relationship to Patient: Cook Pickled Meat Name: Delivery Method: HAND - Hand Delivered Faye Days: Prior Verbal Notification: Recipient Understood Notice: Yes Recipient Signature: Yes Med Rec Note Co-signed by Attending: Coverage Notice Comment: [facility] OR [facility] FOR SNF REHAB. Last DP export: 02/20/19 12:33 p Patient Name: INDIRA ADAN Page 13512 at 1342 All edits/amendments must be made on the electronic document DICTATION DATE: 02/20/191340 ENROLLMENT SERVICES VICE PRESIDENT: BAL 02/20/191340 RPT#: [id number] DC DATE: STATUS: ADM IN [facility] [address] [place] [address] END OF REPORT
--- NOTE | 2019-02-20 13:43 | NUR ---
Rehab Note- Visited with the patient and she is willing to participate in the required 3hrs/day of therapy. Will accept the patient when medically stable and ready for discharge from the acute hospital. Spoke with INNA Ruvalcaba. Thank you for this referral! LISSETTE Reza, [facility] Rehab
--- NOTE | 2019-02-20 14:57 | MORECARE ---
CASE MANAGEMENT DISCHARGE SUMMARY PATIENT: INDIRA ADAN UNIT: [id number] ADM DATE: 02/18/19 AGE: 73 : 44 SEX: F ROOM/BED: D.2100 AUTHOR: AJITH,DOC PHYSICIAN: REFERRING PHYSICIAN: ALLA MUNGUIA MD DATE OF SERVICE: 02/20/19 Discharge Plan Patient Name: INDIRA ADAN [facility] [facility] 1945 Planned Disposition: Inpatient Rehab Anticipated Discharge Date: 02/20/19 Discharge Date: Expected LOS: 2 Initial Reviewer: [id number] Initial Review Date: 02/20/2019 Generated: 02/20/19 3:56 pm Comments DCP- Discharge Planning Updated by [id number]: Jose Rafael Dasilva on 02/20/19 1:[address] Patient Name: INDIRA ADAN Admission Status: Elective Accout number: [id number] Admission Date: 02-18-2019 : 1945 Admission Diagnosis:ENTEROCOLITIS D/T CLOSTRIDIUM DIFFICILE, NOT SPCF RE Attending: ALLA MUNGUIA Current LOS: 2 Anticipated DC Date: Planned Disposition: Inpatient Rehab Primary Insurance: MEDICARE A & B PLANNED EXTERNAL PROVIDER: [facility] INPATIENT REHAB Discharge Planning Comments: CM RECEIVED ORDER FOR INPATIENT REHAB PRESCREENING. CM MET WITH PT IN ROOM TO DISCUSS DISCHARGE PLANNING AND NEEDS. PT REPORTS LIVING AT HOME INDEPENDENTLY WITH HER DAUGHTER. PT HAS NO MEDICAL EQUIPMENT AND [facility]. PT DOES NOT REMEMBER THE LAST COUPLE OF DAYS AT HOME, SHE WAS HOME AFTER SURGERY, WAS STILL ABLE TO GET UP AND TAKE CARE OF HERSELF. CM DISCUSSED AVAILABILITY OF HOME HEALTH, REHAB SERVICES AND MEDICAL EQUIPMENT. PT WOULD LIKE REHAB AT [facility]. CM REVIEWED THERAPY NOTES WITH PT. PT FEELS SHE CAN PARTICIPATE FULLY WITH THREE HOURS OF PROGRESSIVE THERAPY; CM ENCOURAGED PT TO TRY HARD AND WORK WITH THERAPY TO SHOW HER FULL POTENTIAL. CM ASKED ABOUT SECOND PLAN FOR REHAB, DISCUSSED [facility]. PT STATES IF SHE HAS TO GO, SHE WOULD GO TO ONE IN [place], EITHER [facility] OR [facility] PT WOULD HAVE TO TALK TO DAUGHTER TO GET A FIRM DECISION ON WHICH ONE SHE PREFERS MORE. CHOICE SIGNED FOR [facility] AND [facility], TO USE IF DECLINED INPATIENT REHAB. PT REPORTS HER DAUGHTER WILL PICK HER UP FOR DISCHARGE HOME. IMPORTANT MESSAGE FROM MEDICARE PROVIDED AND EXPLAINED. CM NOTIFIED MARQUE[facility] OF INPATIENT REHAB OF PT'S DESIRE FOR INPATIENT REHAB SERVICES AT [facility]. CM WAITING RESULTS OF INPATIENT REHAB PRESCREENING WELL ADMISSION DETERMINATION FROM [facility] INPATIENT REHAB. Crew Director: Jose Rafael Dasilva Appended by Jose Rafael Dasilva on 02/20/2019 14:52 CROWN WHEEL ASSEMBLER: CM RECEIVED MESSAGE FROM [facility] OF INPATIENT REHAB FROM RN [facility], THEY PLAN TO ACCEPT PT TODAY FOR REHAB. PT NOTIFIED, IN AGREEMENT WITH DISCHARGE TO INPATIENT REHAB. PT STATES SHE WILL NOTIFY HER DAUGHTER VIA PHONE. [facility] INPATIENT REHAB TO CONTACT MED 2 NURSE WITH ROOM NUMBER WHEN READY TO ACCEPT PT AND NURSE REPORT. JOSE RAFAEL DASILVA, CASE MANAGEMENT DCPIA - Discharge Planning Initial Assessment Updated by [id number]: Jose Rafael Dasilva on 02/20/19 1:30 pm * Is the patient Alert and Oriented? Yes * How many steps to enter\exit or inside your home? NONE * PCP DR. VERA * Pharmacy [facility] IN [place] * Preadmission Environment Home with Family * ADLs Independent * Equipment Other * Other Equipment LIFT CHAIR NO MEDICAL EQUIPMENT PROVIDER PREFERENCE * List name and contact numbers for known caregivers / representatives who currently or will assist patient after discharge: RADHA ADAN DTR, * Verbal permission to speak to the caregivers and representatives has been obtained from the patient. Yes * Community resources currently utilized Home Health * Please name any agencies selected above. [facility] * Additional services required to return to the preadmission environment? Yes * Can the patient safely return to the preadmission environment? Yes * Has this patient been hospitalized within the prior 30 days at any hospital? Yes Coverage Notice Reviewer: [id number] Matthew Dasilva Notice Issued Date-Time: 02/20/2019 9:55 Notice Type: IM Discharge Notice Notice Delivered To: Patient Relationship to Patient: Chopper Feeder Name: Delivery Method: HAND - Hand Delivered Faye Days: Prior Verbal Notification: Recipient Understood Notice: Yes Recipient Signature: Yes Med Rec Note Co-signed by Attending: Coverage Notice Comment: Reviewer: RONDA Dasilva Notice Issued Date-Time: 02/20/2019 9:55 Notice Type: Patient Choice Letter Notice Delivered To: Patient Relationship to Patient: Chopper Feeder Name: Delivery Method: HAND - Hand Delivered Faye Days: Prior Verbal Notification: Recipient Understood Notice: Yes Recipient Signature: Yes Med Rec Note Co-signed by Attending: Coverage Notice Comment: [facility] OR [facility] FOR SNF REHAB. Last DP export: 02/20/19 12:42 p Patient Name: INDIRA ADAN Page 68900 at 1457 All edits/amendments must be made on the electronic document DICTATION DATE: 02/20/191455 FAUCET POLISHER: BAL 02/20/196 RPT#: [id number] DC DATE: STATUS: ADM IN [facility] [address] [place] [address] END OF REPORT
--- NOTE | 2019-02-20 15:50 | NUR ---
PER TITUS WITH INNA, I CALLED DR DE OLIVEIRA OFFICE TO SEE IF JHONNY NEEDED A BLOOD THINNER S/P SHOULDER SURGERY (HAS NOT BEEN ON ONE). I SPOKE WITH KIMI HENDERSON APN AND THERE IS NO BLOOD THINNERS TO BE ORDERED.
--- NOTE | 2019-02-20 16:04 | NUR ---
UPON ADMIT, PATIENT HAS NOT HAD A FLU SHOT. WHEN QUESTIONED, SHE STATES THAT SHE WANTS ONE. ORDERED.
[2019-02-20] MEDS ORDERED: FLAGYL500 MG PO (16:18)
[2019-02-20] MEDS ORDERED: NEURONTIN 300300 MG PO (16:18)
[2019-02-20] MEDS ORDERED: FLORAJEN3 CAPS460 MG PO (16:18)
--- NOTE | 2019-02-20 16:41 | NUR ---
REPORT CALLED TO REHAB. REQUESTED TO BRING DOWN AFTER DINNER.
--- NOTE | 2019-02-20 18:30 | NUR ---
IV D/C WITH CATHETER TIP INTACT. PT TRANSFERRED WITH ALL BELONGINGS TO REHAB. REHAB NURSES REMOVED [place]. DAUGHTER IS AWARE OF TRANSFER.
[2019-02-20 18:35] VITALS: BP 108/62
== END 2019-02-20 18:53 | DRG 371 ==
LOC: D.M2 12:33
PROVIDERS: ADMIT Internal Medicine Nephrology; ATTEND Internal Medicine Nephrology
DX: A04.72 Enterocolitis due to Clostridium difficile, not specified as recurrent (principal); I50.31 Acute diastolic (congestive) heart failure; Z68.43 Body mass index [BMI] 50.0-59.9, adult; K92.2 Gastrointestinal hemorrhage, unspecified; N17.9 Acute kidney failure, unspecified; E66.01 Morbid (severe) obesity due to excess calories; F41.9 Anxiety disorder, unspecified; D64.9 Anemia, unspecified; E87.6 Hypokalemia; I11.0 Hypertensive heart disease with heart failure; E11.9 Type 2 diabetes mellitus without complications

== ENCOUNTER 2019-02-20 16:42 | Inpatient (IN) | payer MEDICARE, OTHER ==
[~2019-02-20] VITALS: Ht 172.7 cm; Wt 136.1 kg
[~2019-02-20 16:42] MED LIST changes: +FLAGYL500 MG PO; +FLORAJEN3 CAPS460 MG PO; +NEXIUM20 MG PO
--- NOTE | 2019-02-20 19:57 | NUR ---
GREETED PATIENT AND INTRODUCED MYSELF HER NURSE. PATIENT IS LAYING IN BED RESTING AT THIS TIME. RESPIRATIONS EVEN. NO S/S OF DISTRESS. CALL LIGHT IN REACH.
[2019-02-20 21:32] VITALS: BP 137/55
[2019-02-20 22:37] VITALS: BP 137/55; BMI 45.7
--- NOTE | 2019-02-21 04:26 | NUR ---
PT. RESTING QUIETLY WITH EYES CLOSED. RESPIRATIONS EVEN. NO S/S OF DISTRESS. SR UP X 2. BED IN LOWEST POSITION. CALL LIGHT IN REACH.
[2019-02-21 06:21] LABS: BASOPHILS 0.3 % (0-2); EOSINOPHILS 2.3 % (0-7); HEMATOCRIT 36.5 % (36.0-48.0); HEMOGLOBIN 11.8 g/dL (12-16); IMMATURE GRANULOCYTES 0.8 % (0-5); LYMPHOCYTES 8.3 % (15-50); MCHC 32.3 g/dL (31.0-37.0); MCV 95.8 fL (80.0-100.0); MEAN PLATELET VOLUME 10.3 fL (7.4-10.4); MONOCYTES 5.5 % (2-11); NEUTROPHILS 82.8 % (40-80); PLATELET COUNT 271 10x3/uL (130-400); RBC 3.81 10x6/uL (4.00-5.40); WBC 17.3 10x3/uL (4.8-10.8)
[2019-02-21 06:52] LABS: ANION GAP 14.8 mmol/L (8-16); CALCIUM 7.8 mg/dL (8.5-10.1); CARBON DIOXIDE 23.7 mmol/L (21.0-32.0); CREATININE - SERUM 1.2 mg/dL (0.6-1.3); POTASSIUM - SERUM 3.5 mmol/L (3.5-5.1)
--- NOTE | 2019-02-21 08:00 | NUR ---
PATIENT IS ALERT/ORIENT. SITTING UP IN BED TO EAT BREAKFAST. CALL LIGHT WITHIN REACH. VOICES NO NEEDS AT THIS TIME. CONTINUES IN CONTACT ISOLATION FOR C-DIFF.
[2019-02-21 08:34] VITALS: BP 109/44
--- NOTE | 2019-02-21 11:05 | NUR ---
PATIENT SITTING IN WHEELCHAIR AT BEDSIDE. CALL LIGHT WITHIN REACH. DAUGHTER CALLED AND UPDATED BY THIS NURSE
[2019-02-21 13:53] VITALS: Ht 172.7 cm; Wt 136.1 kg
--- NOTE | 2019-02-21 13:53 | NUR ---
SPECIALTY BED ORDERED AND DELIVERED TO ROOM. PATIENT HELPED BACK TO BED. TOTAL ASST OF THREE. PATIENT IS UNABLE TO BEAR WEIGHT FOR MORE THEN A FEW SECONDS.
--- NOTE | 2019-02-21 14:21 | NUR ---
PATIENT WEIGHED TODAY. WT 349.2
--- NOTE | 2019-02-21 20:00 | NUR ---
PATIENT RECEIVED SITTING UP IN BED WATCHING TV. ASSESSMENT & VITAL SIGNS DONE. NO C/O PAIN OR DISTRESS. BED LOW. CALL LIGHT WITHIN REACH. WILL CONTINUE TO MONITOR.
[2019-02-21 21:12] VITALS: BP 92/43
--- NOTE | 2019-02-22 02:13 | NUR ---
I have reviewed this patient and I concur with the Shift Assessment completed by the Licensed Practical Nurse today this shift.
--- NOTE | 2019-02-22 02:30 | NUR ---
PATIENT USED CALL LIGHT FOR ASSIST. THIS NURSE & TECH TURNED PATIENT TO SIDE TO PLACE PATIENT ON BEDPAN. PATIENT HAD SOFT DARK BROWN BM. NO ODOR NOTED. CALL LIGHT WITHIN REACH. BED LOW. ALARM ON. WILL CONTINUE TO MONITOR.
[2019-02-22 08:00] VITALS: BP 113/45
[2019-02-22 12:24] LABS: BASOPHILS 0.2 % (0-2); EOSINOPHILS 1.9 % (0-7); HEMATOCRIT 32.5 % (36.0-48.0); HEMOGLOBIN 10.4 g/dL (12-16); IMMATURE GRANULOCYTES 1.5 % (0-5); LYMPHOCYTES 1.4 % (15-50); MCH 31.1 pg (26.0-34.0); MCV 97.3 fL (80.0-100.0); MEAN PLATELET VOLUME 10.2 fL (7.4-10.4); MONOCYTES 2.1 % (2-11); NEUTROPHILS 92.9 % (40-80); RBC 3.34 10x6/uL (4.00-5.40); RDW 15.5 % (11.5-14.5)
[2019-02-22 12:27] LABS: PLATELET COUNT 148 10x3/uL (130-400); WBC 12.9 10x3/uL (4.8-10.8)
[2019-02-22 12:30] LABS: ANION GAP 15.7 mmol/L (8-16); CALCIUM 7.5 mg/dL (8.5-10.1); CARBON DIOXIDE 18.9 mmol/L (21.0-32.0); CREATININE - SERUM 2.9 mg/dL (0.6-1.3); POTASSIUM - SERUM 3.6 mmol/L (3.5-5.1)
--- NOTE | 2019-02-22 16:41 | NUR ---
PATIENT ADMITTED TO REHAB FROM ACUTE FLOOR. SHE IS A CLIENT OF [facility]. DR. VERA IS HER PCP. IF SHE IS UNABLE TO DSICHARGE HOME SHE WOULD LIKE TO GO TO [facility] OR OR [facility]. WILL CONTINUE TO FOLLOW WITH PATIENT
--- NOTE | 2019-02-22 17:51 | NUR ---
SITTING UP IN BED FOR SUPPER. USES RUE TO EAT. LUE STILL EDEMATOUS AT 4+. SHE REQUIRES LOTS OF ENCOURAGEMENT AND PROMPTING TO DO SIMPLE THINGS FOR HERSELF. BARIMAXX BED IN USE. CALL LIGHT IN REACH
--- NOTE | 2019-02-22 18:45 | NUR ---
PT RESTING IN BED WITH EYES OPEN. ALERT AND ORIENTED X 3. DENIES ACUTE PAIN OR DISCOMFORT AT THIS TIME. VOICED COMPLAINT OF NEEDING INC. CARE, BUT REFUSED TO ALLOW A MALE NURSE TO DO THIS. CARE GIVEN BY 2 FEMALE NURSES. REPORTED TO HAVE REDDENED AREAS ON BUTTOCKS AND LIDYA AREA WITH BUTT PASTE APPLIED. STERI STRIPS INTACT TO LEFT SHOULDER INCISION. NO DRAINAGE NOTED. CONTACT PRECAUTIONS OBSERVED FOR CDIFF. SR'S ARE UP X 2 IN BED. CALL LIGHT AND BEDSIDE TABLE ARE WITHIN EASY REACH.
--- NOTE | 2019-02-22 22:56 | NUR ---
RESTING QUIETLY IN BED WITH EYES CLOSED. RESPS ARE EVEN AND UNLABORED. NO ACUTE DISTRESS NOTED.
--- NOTE | 2019-02-23 02:16 | NUR ---
I have reviewed this patient and I concur with the Shift Assessment completed by the Licensed Practical Nurse today this shift.
--- NOTE | 2019-02-23 04:21 | NUR ---
RESTING IN BED WITH EYES CLOSED.
[2019-02-23 08:00] VITALS: BP 112/52
--- NOTE | 2019-02-23 08:00 | NUR ---
PATIENT IS ALERT/ORIENT. ON A SPECILTY BED. CONTINUES IN CONTACT ISOLATION FOR C-DIFF. CALL LIGHT WITHIN REACH. VOICES NO NEEDS AT THIS TIME. WILL CONTINUE WITH PLAN OF CARE
--- NOTE | 2019-02-23 09:15 | NUR ---
DR Sanford MICHAEL INTO SEE PATIENT. NEW ORDERS RECEIVED FOR US LEFT VENOUS DOPPLER AND CONSULT WITH DR DE OLIVEIRA
--- NOTE | 2019-02-23 10:00 | NUR ---
DR ANDINO MID LEVEL GAME DESIGNER FOR DR DE OLIVEIRA. THIS NURSE TALKED WITH DR ANDINO. NEW ORDERS FOR CBC, SEDRATE, CRP AND X RAY 2 VIEW OF LEFT SHOULDER
--- NOTE | 2019-02-23 11:10 | NUR ---
OCCUPATIONAL THERAPY AND PHYSICAL THERAPY IN PATIENTS ROOM. GIVING PATIENT A BED BATH.
[2019-02-23 13:04] LABS: BASOPHILS 0.1 % (0-2); EOSINOPHILS 1.3 % (0-7); HEMATOCRIT 31.3 % (36.0-48.0); HEMOGLOBIN 9.8 g/dL (12-16); IMMATURE GRANULOCYTES 1.6 % (0-5); LYMPHOCYTES 3.8 % (15-50); MCH 30.9 pg (26.0-34.0); MCHC 31.3 g/dL (31.0-37.0); MCV 98.7 fL (80.0-100.0); MEAN PLATELET VOLUME 10.3 fL (7.4-10.4); MONOCYTES 3.1 % (2-11); NEUTROPHILS 90.1 % (40-80); PLATELET COUNT 131 10x3/uL (130-400); RBC 3.17 10x6/uL (4.00-5.40); WBC 9.8 10x3/uL (4.8-10.8)
[2019-02-23 14:04] LABS: ERYTHROCYTE SEDIMENTATION RATE 54 mm/hr (0-30)
--- NOTE | 2019-02-23 16:44 | NUR ---
DR ANDINO INTO SEE PATIENT. NO NEW ORDERS RECEIVED. STATED HE WOULD FOLLOW UP WITH DR DE OLIVEIRA ON MONDAY
--- NOTE | 2019-02-23 17:09 | NUR ---
THIS NURSE CALL X-RAY. X-RAY BROUGHT DOWN REPORT OF US LEFT VENOUS DOPPLER. DR ANDINO NOTIFED OF RESULTS. DR ANDINO STATED TO CALL DR MICHAEL. DR MICHAEL PAGED
--- NOTE | 2019-02-23 17:41 | NUR ---
DR Sanford MICHAEL RETURNED PAGE. NEW ORDERS RECEIVED FOR ELIQUIS 5MG BID
--- NOTE | 2019-02-23 20:20 | NUR ---
PATIENT RECEIVED SITTING UP IN BED. PATIENT VITAL SIGNS TAKEN. TEMPERATURE COULD NOT BE TAKEN ORALLY, PATIENT COULDN'T KEEP MOUTH CLOSED, D/T MOUTH BREATHING & PATIENT BEING DROWSY. THIS NURSE NOTIFIED CHARGE NURSE HOMERO, SHE DID AXILLARY & ANAL TEMPERATURES. BOTH WERE 94 DEGREES. RAPID RESPONSE CALLED BY CHARGE NURSE. TEAM WENT TO ROOM. PATIENT DIABETIC FSBS READ 35. PATIENT ORDER FOR DEXTROSE NOW. PATIENT SWALLOWED IT & DRANK APPLE JUICE WITH 2 PACKAGES OF SUGAR.
--- NOTE | 2019-02-23 20:25 | NUR ---
RESPONDED TO A RAPID RESPONSE FOR HYPOTHERMIA. NOTIFIED DR MICHAEL OF HYPOTHERMIA AND HYPOGLYCEMIA, ORDERS RECEIVED, COMMUNICATED TO PT PRIMARY NURSE AND CHARGE NURSE. SEE RR SHEET FOR DETAILS.
[2019-02-23 20:37] LABS: BASOPHILS 0.2 % (0-2); EOSINOPHILS 2.4 % (0-7); HEMATOCRIT 32.3 % (36.0-48.0); HEMOGLOBIN 10.2 g/dL (12-16); IMMATURE GRANULOCYTES 1.7 % (0-5); LYMPHOCYTES 5.6 % (15-50); MCH 30.7 pg (26.0-34.0); MCHC 31.6 g/dL (31.0-37.0); MCV 97.3 fL (80.0-100.0); MEAN PLATELET VOLUME 10.2 fL (7.4-10.4); MONOCYTES 3.6 % (2-11); NEUTROPHILS 86.5 % (40-80); PLATELET COUNT 137 10x3/uL (130-400); RBC 3.32 10x6/uL (4.00-5.40); WBC 11.1 10x3/uL (4.8-10.8)
--- NOTE | 2019-02-23 21:00 | NUR ---
PATIENT DAUGHTER CALLED NURSES STATION. DAUGHTER NOTIFIED BY CHARGE NURSE HOMERO.
--- NOTE | 2019-02-23 21:30 | NUR ---
FSBS 75. PATIENT GIVEN APPLE JUICE WITH 2 PACKS OF SUGAR. TEMPERATURE 96.5. WILL CONTINUE TO CHECK EVERY HOUR PER ORDER UNTIL PATIENT IS STABLE. GAVE SCHEDULE MEDICATIONS. DID NOT GIVE ATIVAN OR VOLTAREN PER ICU NURSE. PATIENT CONDITION UNSTABLE AT THIS TIME. PATIENT WARMER IN PLACE. CALL LIGHT WITHIN REACH. WILL CONTINUE TO MONITOR.
--- NOTE | 2019-02-24 00:30 | NUR ---
TEMPERATURE 97.0 AXILLARY. FSBS 83. BED LOW. PATIENT ALERT AWAKE. BED LOW. CALL LIGHT WITHIN REACH. WILL CONTINUE TO MONITOR.
--- NOTE | 2019-02-24 01:22 | NUR ---
PATIENT DAUGHTER CALLED FOR UPDATE ON MOTHERS CONDITION. FSBS 81. TEMPERATURE 97.0. DAUGHTER WILL CALL BACK TODAY. WILL CONTINUE TO MONITOR.
--- NOTE | 2019-02-24 02:00 | NUR ---
PATIENT FSBS 99. TEMPERATURE 98.7 AXILLARY. WARMER REMOVED. BED LOW. CALL LIGHT WITHIN REACH. WILL CONTINUE TO MONITOR.
--- NOTE | 2019-02-24 04:37 | NUR ---
QUIET HOURS. PT LYING IN BED EYES CLOSED RESTING QUIETLY. HOB 45 DEGREES. RR EVEN AND UNLABORED. CONTINUES ON 2L VIA NC. CL IN REACH.
--- NOTE | 2019-02-24 04:51 | NUR ---
PATIENT ENCOURAGED TO EAT BREAKFAST WHEN IT ARRIVES. BED LOW. ALARM ON. WILL CONTINUE TO MONITOR.
--- NOTE | 2019-02-24 06:46 | NUR ---
I have reviewed this patient and I concur with the Shift Assessment completed by the Licensed Practical Nurse today this shift.
--- NOTE | 2019-02-24 06:50 | NUR ---
GLUCOSE LEVEL 36. GLUCAGEN PO GIVEN. PATIENT IS SLIGHTLY LETHERIC. THIS NURSE WAS ALSO ABLE TO GET SOME ORANGE JUICE AND SUGAR INTO PATIENT. T98.4/ P79, R22 OXYGEN AT 2L PER N/C. B/P 93/36. DR Sanford COOK.
--- NOTE | 2019-02-24 07:10 | NUR ---
GLUCOSE LEVEL 35. PATIENT IS UNRESPONSIVE. RAPID RESPONSE CALLED. SEE REAPID RESPONSE SHEET.
--- NOTE | 2019-02-24 08:12 | NUR ---
RAPID RESPONSE NOTED FOR LETHARGY AND HYPOGLYCEMIA OF 35. NO IV ACCESS, SUBQ GLUCAGON ADMIN, RECHECK GLUCOSE IS 36. UNABLE TO GET AHOLD OF DR MICHAEL. DR MUNGUIA EQUITIES TRADER FOR DR MICHAEL. RECIEVED ORDERS TO ADMIT TO ICU AND CONSULT SURGERY FOR A CENTRAL LINE.
[2019-02-24] MEDS ORDERED: NEXIUM20 MG PO (08:55)
--- NOTE | 2019-02-24 09:00 | NUR ---
PATIENT TAKEN UP TO ICU. REPORT GIVEN TO NURSE.
--- NOTE | 2019-02-25 09:49 | NUR ---
DUE TO CHANGE IN MEDIAL CONDTION PATIENT DISCHARGE FROM REHAB AND ADMITTED TO ICU ON 02/24/19 .
--- NOTE | 2019-02-25 10:01 | RHP ---
PATIENT: INDIRA ADAN MEDICAL RECORD: [id number] ACCOUNT: [id number] LOCATION[facility] : 43 ADMISSION DATE: 02/20/19 REHABILITATION HISTORY AND PHYSICAL EXAMINATION POST ADMISSION PHYSICIAN EXAMINATION DATE OF ADMISSION: 02/20/2019. ADMITTING DIAGNOSIS: Disuse myopathy. HISTORY OF PRESENT ILLNESS: The patient is a 73-year-old female patient who is morbidly obese with a history of hypertension, diabetes, chronic UTIs, anxiety, and chronic lumbago. She was transferred from [place] and admitted for acute kidney injury, dehydration, hyperkalemia, mental status changes and occult blood in her stool. The patient additionally was found to be C. diff positive. She originally presented to the ER with fatigue, weakness and slurred speech. Her mental status has improved. She has been having some frequent watery stools. The patient also had status post reverse total shoulder on 02/04/2019. She was admitted to the acute hospital and was receiving treatment. She has been seen by orthopedic and now can return to some range of motion of her left shoulder, status post TSA. She is receiving PT during her acute hospital stay. She is currently on supplemental O2, electrolyte protocol with IV supplementation required at times, acute pain, isolation precautions secondary to CDT. She is deconditioned proximal muscle, debility, impaired mobility, gait disturbance, high fall risk, and self-care deficits. These are all barriers to her discharge home safely at this time. She lives at home with her daughter and was independent with ADLs and mobility prior to this. She is currently set up for max assist for ADLs and max assist for mobility. She plans to be able to return home at her prior level of functioning or better if possible. She will have some limitations to her left upper extremity and she will be set up for home health upon discharge. COMORBIDITIES: Include C. diff, GI bleed, normocytic anemia, electrolyte abnormalities, status post reverse total arthroplasty, diabetes, morbid obesity, osteoarthritis, anxiety, chronic back pain. PAST MEDICAL HISTORY: Significant for neuropathy, acid reflux, hypertension, chronic back pain, anxiety, tobacco use. PAST SURGICAL HISTORY: Includes gallbladder surgery. She has had back surgery, hysterectomy, and shoulder surgery. ALLERGIES: No known drug allergies. CURRENT MEDICATIONS: Include Floranex 460 mg daily. She is on Amaryl 2 mg daily, potassium 10 mEq daily, Toprol 100 mg daily, metformin 500 mg in the morning. She is on Protonix 40 mg daily. She is on Bactrim 1 b.i.d., Pepcid 20 mg b.i.d., Flagyl 500 mg q.i.d., metformin 1000 mg in the p.m., Neurontin 300 mg t.i.d., furosemide 40 mg b.i.d., Voltaren gel 25 mg b.i.d. to apply as needed b.i.d. She is on diclofenac 75 mg b.i.d., Xanax 0.5 mg b.i.d., and Percocet 10/325 as needed for pain. HABITS: Does have a history of tobacco use. FAMILY HISTORY: Noncontributory. HISTORY AND PHYSICAL [id number] INDIRA ADAN SOCIAL HISTORY: The patient hopes to return back home and get back to her prior level of functioning. REVIEW OF SYSTEMS: GENERAL: Does complain of some weakness and fatigue. HEENT: Denies cold, cough, or congestion. CARDIOVASCULAR: Denies chest pain. PHYSICAL EXAMINATION: VITAL SIGNS: Stable, afebrile. GENERAL: An obese female in no acute distress, alert upon exam. HEENT: Normocephalic and atraumatic. Mucosa moist. NECK: Supple, with no lymphadenopathy. LUNGS: Clear in upper barr with decreased breath sounds in the bases secondary to body habitus. CARDIOVASCULAR: Regular rate and rhythm. ABDOMEN: Soft, benign, and nondistended. Positive bowel sounds times 4. EXTREMITIES: No clubbing, cyanosis or edema. She does have noted changes from reverse total shoulder of the right upper extremity. NEUROLOGIC: She does have noted proximal muscle weakness. LABORATORY DATA: Her sodium is 142, potassium 3.5, BUN and creatinine of 17 and 1.2, and blood sugar is noted to be 139. White count is 17,000, H&H of 11 and 36, and platelet count was noted to be 271. ASSESSMENT: This is a 73-year-old female patient admitted to the rehab with a working diagnosis of disuse myopathy status post recent total shoulder arthroplasty, reverse. The patient has potential to make improvement. We instituted the following multidisciplinary therapies to include, but not limited to physical, occupational, respiratory, speech, nutritional services, prosthetics and orthotics. Given her complex medical condition and risks for more complications, rehabilitation services cannot be provided at a low level of care such as longterm facility. PLAN: 1. Admit to [facility] rehab for intensive inpatient therapy to include the following disciplines: A. Physical therapy to improve gait, all transfer skills and bed mobility to a modified independent level. B. Occupational therapy to improve activities of daily living to a modified independent level. C. Case management to assist with discharge planning and placement options. D. Nutrition to assist with nutritional needs. E. Rehabilitation nursing to assist in monitoring the patient's underlying medical conditions and to assist with any type of bowel or bladder management. 2. The patient's current medication and medical care will be continued. 3. We will continue on antibiotics as prescribed. 4. We will watch her white count closely. 5. We will also observe her creatinine. If it goes above 1.5, we will stop her metformin. 6. I will see again in the a.m. TRANSINT:[id number] Voice Confirmation ID: [id number] DOCUMENT ID: [id number] HISTORY AND PHYSICAL [id number] INDIRA ADAN notes whether there has been none or any medical/functional change since admission: - No change since prescreen. CHOCO attests patient continues to be appropriate for IRF: - Continues to be appropriate. JANEE MICHAEL MD at 1001 CC: [id number] DICTATION DATE: 02/21/19 0845 COMPUTER INFORMATION SYSTEMS PROFESSOR: 02/21/19 0948 DIS IN 02/24/19 [place] [id number]
== END 2019-02-24 09:19 | disposition short-term general hospital (02) | DRG 92 ==
LOC: D.REHAB 16:42
PROVIDERS: Orthopaedic Surgery; ADMIT Emergency Medicine; ATTEND Emergency Medicine
DX: G72.89 Other specified myopathies (principal); K92.2 Gastrointestinal hemorrhage, unspecified; Z68.43 Body mass index [BMI] 50.0-59.9, adult; E66.01 Morbid (severe) obesity due to excess calories; I10 Essential (primary) hypertension; E11.9 Type 2 diabetes mellitus without complications; M54.5 Low back pain; B96.89 Other specified bacterial agents as the cause of diseases classified elsewhere; D64.9 Anemia, unspecified; E87.8 Other disorders of electrolyte and fluid balance, not elsewhere classified; M19.90 Unspecified osteoarthritis, unspecified site; F41.9 Anxiety disorder, unspecified; K21.9 Gastro-esophageal reflux disease without esophagitis; Z72.0 Tobacco use; E53.1 Pyridoxine deficiency; G89.29 Other chronic pain

== ENCOUNTER 2019-02-24 08:11 | Inpatient (IN) | payer MEDICARE, OTHER ==
[2019-02-24] VITALS (49 sets, daily range): BP systolic 56–159; BP diastolic 24–69; BMI 51.0
[~2019-02-24] VITALS: Ht 172.7 cm; Wt 163.0 kg
--- NOTE | 2019-02-24 08:48 | NUR ---
ARRIVED TO UNIT AT THIS TIME VIA BED ACCOMPANIED BY HOSPTIAL STAFF. PT LETHARGIC, OPENS EYES TO DISCOMFORT. PT STABLE. CONTINUE TO OBSERVE.
[2019-02-24 08:53] LABS: ALBUMIN 1.9 g/dL (3.4-5.0); ALKALINE PHOSPHATASE 207 U/L (46-116); ALT (SGPT) 46 U/L (10-68); BILIRUBIN - TOTAL 1.07 mg/dL (0.2-1.3); CALCIUM 8.2 mg/dL (8.5-10.1); CARBON DIOXIDE 19.6 mmol/L (21.0-32.0); CHLORIDE - SERUM 104 mmol/L (98-107); CKMB 3.1 U/L (0.0-3.6); CREATINE KINASE 60 UL (21-215); PROTEIN - SERUM 5.2 g/dL (6.4-8.2); SODIUM 138 mmol/L (136-145)
[2019-02-24 08:54] LABS: CALC OSMOLALITY 284 mosm/kg (275-300); CREATININE - SERUM 4.2 mg/dL (0.6-1.3); GLUCOSE 42 mg/dL (74-106); POTASSIUM - SERUM 5.2 mmol/L (3.5-5.1); TROPONIN-I 0.073 ng/mL (0.000-0.060); UREA NITROGEN 46 mg/dL (7-18); eGFR NON AFRICAN AMERICAN 11 mL/min (90-120)
[2019-02-24] MEDS ORDERED: NEXIUM20 MG PO (08:55)
[2019-02-24 08:58] LABS: BASOPHILS 0.2 % (0-2); EOSINOPHILS 3.5 % (0-7); HEMATOCRIT 33.7 % (36.0-48.0); HEMOGLOBIN 10.5 g/dL (12-16); IMMATURE GRANULOCYTES 0.9 % (0-5); MCHC 31.2 g/dL (31.0-37.0); MCV 99.4 fL (80.0-100.0); MEAN PLATELET VOLUME 10.4 fL (7.4-10.4); MONOCYTES 3.6 % (2-11); NEUTROPHILS 88.8 % (40-80); PLATELET COUNT 153 10x3/uL (130-400); RBC 3.39 10x6/uL (4.00-5.40); RDW 16.6 % (11.5-14.5); WBC 11.1 10x3/uL (4.8-10.8)
--- NOTE | 2019-02-24 09:08 | NUR ---
SPOKE WITH DR MUNGUIA, ORDERS RECIEVED.
--- NOTE | 2019-02-24 09:46 | NUR ---
PT HAD A BM. CLEANED UP. PLACED ON NEW SHEETS AND SLIDING SHEET
--- NOTE | 2019-02-24 09:46 | NUR ---
DOVER IN PLACE. 18 TAJIK. URINE RETURN
--- NOTE | 2019-02-24 09:46 | NUR ---
L ARM RESERVE DUE TO L SHOULD REPLACEMENT AND DVT
--- NOTE | 2019-02-24 09:46 | NUR ---
UNABLE TO PUT NG TUBE DOWN. BLOCKAGE IN BOTH NARES. BLOOD WHEN NG PULLED OUT THROUGH BOTH NOSTRILS.
--- NOTE | 2019-02-24 09:50 | NUR ---
SPOKE WITH PTS DAUGHTER UPDATES PROVIDED. RECIEVED CONSENTS FOR CVL PLACEMENT, VERIFIED BY SECOND NURSE.
--- NOTE | 2019-02-24 10:22 | NUR ---
dr banerjee at bedside. central line in place. he requested an amp of d50 and pushed it.
--- NOTE | 2019-02-24 10:36 | NUR ---
XRAY AT BEDSIDE.
--- NOTE | 2019-02-24 11:17 | NUR ---
dr banerjee stated central line was good for use
--- NOTE | 2019-02-24 11:28 | NUR ---
PATIENT ON BIPAP PER DR MUNGUIA
[2019-02-24 12:50] LABS: APPEARANCE TURBID (CLEAR); BILIRUBIN NEGATIVE (NEGATIVE); COLOR AMBER (YELLOW); GLUCOSE NEGATIVE (NEGATIVE); KETONE NEGATIVE (NEGATIVE); NITRITE NEGATIVE (NEGATIVE); PROTEIN NEGATIVE (NEGATIVE); UROBILINOGEN NORMAL (NORMAL)
[2019-02-24 12:51] LABS: RED CELLS - URINE 0-5 /hpf (0-5); YEAST >1+ /hpf (NONE SEEN)
[2019-02-24 12:52] LABS: BACTERIA FEW /hpf (NEGATIVE); HYALINE CAST 0-5 /lpf (NONE SEEN); WHITE CELLS - URINE 0-5 /hpf (NEGATIVE)
--- NOTE | 2019-02-24 13:07 | NUR ---
spoke with daughter karin. she stated she wanted her mother a full code.
--- NOTE | 2019-02-24 13:15 | NUR ---
dr null notified of consult
--- NOTE | 2019-02-24 14:07 | NUR ---
PER DR MUNOZ, AFTER PT IS INTUBATED MEASURE CVP AND GOAL IS TO HAVE CVP BETWEEN 10-12 AND IF CVP IS LOW THEN GIVE 250ML BOLUS OF NS.
--- NOTE | 2019-02-24 15:12 | NUR ---
INTUBATED AT 1420
--- NOTE | 2019-02-24 15:33 | NUR ---
NILDA STATED NO FOR RENAL CONSULT
--- NOTE | 2019-02-24 15:34 | NUR ---
CVP 20
--- NOTE | 2019-02-24 16:21 | NUR ---
dopamine stopped per dr osorio. sophie zambrano also clarified with dr osorio
--- NOTE | 2019-02-24 16:48 | NUR ---
CVP 18
--- NOTE | 2019-02-24 17:09 | NUR ---
VENT CHANGED PER RESP TO 50%. OXYGEN WAS 301.
--- NOTE | 2019-02-24 17:15 | NUR ---
SPOKE WITH DR JONES REGARDING THE NEPHROLOGY THAT DR MUNOZ WANTED. DR MUNGUIA STATED HE DID NOT WANT TO CONSULT NEPHROLOGY. JOHNATHAN CONFIRMED THIS WITH DR JONES.
--- NOTE | 2019-02-24 18:00 | NUR ---
per dr osorio. lung scan tomorrow. nuc med aware
--- NOTE | 2019-02-24 18:33 | NUR ---
PATIENT HAS BEEN UNRESPONSIVE ALL DAY. UNABLE TO SRS. NOW PATIENT IS INTUBATED.
--- NOTE | 2019-02-24 18:34 | NUR ---
CVP 20.
--- NOTE | 2019-02-24 19:00 | NUR ---
BEDSIDE REPORT AND SHIFT ASSESSMENT COMPLETE, SEE FLOWSHEET. R IJ DRESSING CDI, PATENT. IV FLUIDS RUNNING, SEE FLOWSHEET. PT SEDATED, NO SIGNS OF DISTRESS NOTED. REPOSITIONING COMPLETE. SWELLING NOTED TO L ARM, PULSES PALP. WILL CONTINUE TO MONITOR.
--- NOTE | 2019-02-24 21:00 | NUR ---
SPOKE WITH DAUGHTER RADHA, UPDATE GIVEN. VSS, NO SIGNS OF ACUTE DISTRESS NOTED. WILL CONTINUE TO MONITOR.
--- NOTE | 2019-02-24 23:00 | NUR ---
REASSESSMENT COMPLETE, SEE FLOWSHEET. VSS, NO SIGNS OF ACUTE DISTRESS NOTED. ORAL CARE AND SUCTIONING COMPLETE. WILL MONITOR.
[2019-02-25] VITALS (93 sets, daily range): BP systolic 81–111; BP diastolic 45–61; BMI 51.2
--- NOTE | 2019-02-25 01:00 | NUR ---
MEDS GIVEN PER MAR. VSS, NO SIGNS OF ACUTE DISTRESS NOTED.
--- NOTE | 2019-02-25 03:00 | NUR ---
REASSESSMENT COMPLETE, SEE FLOWSHEET. MEDS GIVEN PER MAR. REPOSITIONING AND ORAL CARE COMPLETE.
--- NOTE | 2019-02-25 04:20 | NUR ---
SPOKE WITH DAUGHTER RADHA, UPDATE GIVEN. SHE STATED THAT HER AND FAMILY WILL BE BY AROUND 11 IN HOPES TO TALK WITH MD AND GET AN UPDATE ON POC.
--- NOTE | 2019-02-25 07:00 | NUR ---
SHIFT ASSESSMENT COMPLETED, PT CARE ASSUMED, MONITORS ON AND WORKING, PT SEDATED, VENT SETTINGS NOTED. SEE FLOW SHEET FOR FURTHER DETAILS. WILL CONTINUE TO OBSERVE.
[2019-02-25 08:05] LABS: HEMATOCRIT 31.6 % (36.0-48.0); HEMOGLOBIN 10.4 g/dL (12-16); MCHC 32.9 g/dL (31.0-37.0); MEAN PLATELET VOLUME 10.4 fL (7.4-10.4); PLATELET COUNT 148 10x3/uL (130-400); RBC 3.35 10x6/uL (4.00-5.40); RDW 15.8 % (11.5-14.5); WBC 11.8 10x3/uL (4.8-10.8)
[2019-02-25 08:16] LABS: ANION GAP 20.1 mmol/L (8-16); CALCIUM 8.4 mg/dL (8.5-10.1); CARBON DIOXIDE 18.9 mmol/L (21.0-32.0)
[2019-02-25 08:30] LABS: MCV 94.3 fL (80.0-100.0)
--- NOTE | 2019-02-25 09:00 | NUR ---
PT TURNED AND REPOSTIONED FOR COMFORT, MONITORS ON AND WORKING, VITALS STABLE, FAMILY CALLED, PASSWORD CONFIRMED AND UPDATE PROVIDED, EXTENSIVE CONVERSATION ANSWERING FAMILY MEMBERS QUESTIONS ABOUT PT. ORAL CARE DONE, WILL CONTINUE TO OBSERVE.
[2019-02-25 10:44] LABS: EOSINOPHILS 5 % (0-7); LYMPHOCYTES 9 % (15-50); MONOCYTES 7 % (2-11); NEUTROPHILS 62 % (40-80); PLATELET ESTIMATE NORMAL
[2019-02-25 10:45] LABS: SMUDGE CELLS OCC
--- NOTE | 2019-02-25 11:00 | NUR ---
NO CHNAGES, VQ SCAN COMPETED, PT TOLERATED WELL, MONITORS ON AND WORKING, VITALS STABLE, SEE FLOW SHEET FOR FURHTER DETIALS. WILL CONTINUE TO OBSERVE.
--- NOTE | 2019-02-25 13:00 | NUR ---
PT TURNED AND REPOSITIONED FOR COMFORT, MONITORS ON AND WORKING, VITALS STABLE, COMPLETE BED BATH AND LINEN CHANGE COMPLETED AT THIS TIME, FAMILY AT BEDSIDE, AGAIN, LENGTHY CONVERSATION ANSWERING FAMILY MEMBERS QUESTIONS CONCERNING PT. NO FURTHER CHANGES AT THIS TIME, WILL CONTINUE TO OBSERVE.
--- NOTE | 2019-02-25 15:00 | NUR ---
PT TURNED AND REPOSITIONED AT THIS TIME, ORAL CARE PROVIDED, NO SIGNS/SYMPTOMS OF PAIN OR DISCOMFORT NOTED AT THIS TIME, SEE FLOW SHEET FOR FURTHER DETAILS, WILL CONTINUE TO OBSERVE.
--- NOTE | 2019-02-25 19:00 | NUR ---
BEDSIDE REPORT AND SHIFT ASSESSMENT COMPLETE, SEE FLOWSHEET. VSS, NO SIGNS OF ACUTE DISTRESS NOTED. R IJ PATENT, DRESSING CDI - SEE IV FLOWSHEET FOR FLUIDS. ETT/OGT SECURED, OGT TO LIS. L ARM SWELLING NOTED, PULSES PALP. ORAL CARE AND REPOSITIONING COMPLETE. CVP ZERO'D, READING OF 12. WILL MONITOR.
--- NOTE | 2019-02-25 21:00 | NUR ---
MEDS GIVEN PER MAR. REPOSITIONING AND ORAL CARE COMPLETE. VSS, B/P TRENDING UP LEVOPHED TITRATED PER MAR. WILL CPOC.
--- NOTE | 2019-02-25 23:00 | NUR ---
REASSESSMENT COMPLETE, SEE FLOWSHEET. ORAL CARE COMPLETE. REPOSITIONING COMPLETE PER SPECIALTY BED. FSBS 58, MEDS GIVEN PER MAR.
[2019-02-26] VITALS (71 sets, daily range): BP systolic 77–125; BP diastolic 38–65; Ht 172.7 cm; Wt 163.0 kg
--- NOTE | 2019-02-26 01:00 | NUR ---
VSS, NO SIGNS OF ACUTE DISTRESS NOTED. WILL MONITOR.
--- NOTE | 2019-02-26 03:00 | NUR ---
REASSESSMENT COMPLETE, SEE FLOWSHEET.
--- NOTE | 2019-02-26 05:00 | NUR ---
CHG BATH, LINEN CHANGE COMPLETE. PRESSURE ULCER NOTED TO COCCYX, DRESSING PLACED ON PT.
[2019-02-26 05:29] LABS: BASOPHILS 0.3 % (0-2); EOSINOPHILS 3.1 % (0-7); HEMATOCRIT 28.5 % (36.0-48.0); HEMOGLOBIN 9.2 g/dL (12-16); IMMATURE GRANULOCYTES 1.9 % (0-5); LYMPHOCYTES 9.6 % (15-50); MCH 30.3 pg (26.0-34.0); MCHC 32.3 g/dL (31.0-37.0); MCV 93.8 fL (80.0-100.0); MONOCYTES 9.2 % (2-11); NEUTROPHILS 75.9 % (40-80); RBC 3.04 10x6/uL (4.00-5.40); RDW 15.8 % (11.5-14.5); WBC 6.4 10x3/uL (4.8-10.8)
[2019-02-26 05:30] LABS: PLATELET COUNT 79 10x3/uL (130-400)
[2019-02-26 05:45] LABS: ANION GAP 21.1 mmol/L (8-16); BILIRUBIN - TOTAL 1.57 mg/dL (0.2-1.3); CALCIUM 7.4 mg/dL (8.5-10.1); CARBON DIOXIDE 16.9 mmol/L (21.0-32.0); MAGNESIUM - SERUM 2.1 mg/dL (1.8-2.4); PHOSPHOROUS 7.2 mg/dL (2.5-4.9); PROTEIN - SERUM 4.3 g/dL (6.4-8.2)
[2019-02-26 05:50] LABS: ALBUMIN 1.4 g/dL (3.4-5.0); CREATININE - SERUM 5.8 mg/dL (0.6-1.3)
--- NOTE | 2019-02-26 07:00 | NUR ---
RECIEVED BEDSIDE REPORT ON PATIENT AND ASSUMED CARE. PATIENT AROUSES TO DEEP PAINFUL STIMULI, SEDATED ON VENT. CM - SB RATE OF 59, BBS - EXPIRATORY WHEEZES NOTED, DIMINISHED IN BASES. SPO2 - 99% ON 50% FIO2. RIGHT IJ CVL IN PLACE INFUSING D10 AT 30 CC/HR. STARTED LEVOPHED DUE TO BP AT 1 MCG.MIN. PATIENT TURNED AND REPOSITIONED IN BED. HEAD TO TOE ASSESSMENT COMPLETED.
[2019-02-26 08:44] LABS: PLATELET ESTIMATE DECREASED
--- NOTE | 2019-02-26 09:00 | NUR ---
PATIENT TURNED AND REPOSITIONED IN BED. VSS.
--- NOTE | 2019-02-26 10:19 | OP ---
PATIENT NAME: INDIRA ADAN MEDICAL RECORD: [id number] :43 LOCATION:D.[facility] D.2310 ADMISSION DATE:02/24/19 SURGEON: CALIN HUGHES MD DATE OF OPERATION: 02/24/2019 PREOPERATIVE DIAGNOSES: 1. Hypoglycemia, refractory. 2. Lack of peripheral IV access. POSTOPERATIVE DIAGNOSES: 1. Hypoglycemia, refractory. 2. Lack of peripheral IV access. PROCEDURE: Emergent insertion of right internal jugular triple lumen central venous catheter. SURGEON: Calin Hughes MD CARPET RENOVATOR: None. BLOOD LOSS: Minimal. ANESTHESIA: Local. COMPLICATIONS: None. The risks, possible complications and alternatives to the procedure were explained to the patient. She elects to proceed. The discussion specifically included, but was not limited to, bleeding requiring an emergency reoperation, infection, line infection. OPERATIVE COURSE: The patient was seen at her bedside. The entire examination was performed in the presence of a female nurse. She was positioned in the Trendelenburg position. The right neck was interrogated with the hand-held ultrasound. A compressible right internal jugular vein was identified. The right neck and right upper chest was sterilely prepped and draped. Local anesthetic was used to infiltrate the skin and subcutaneous tissues at the base of the right neck. The right internal jugular vein was percutaneously accessed in an antegrade fashion. A guidewire passed easily. A small skin shell was accomplished. A vessel dilator was used to dilate a subcutaneous tract. A 16-cm triple lumen central venous catheter was inserted to the hub. This was sutured in place times 3. All lumens flushed easily and aspirated dark, nonpulsatile blood. A stat portable chest x-ray revealed an adequately placed central venous line without pneumothorax. TRANSINT:[id number] Voice Confirmation ID: [id number] DOCUMENT ID: [id number] OPERATIVE REPORT [id number] INDIRA ADAN ROBERT MD at 1019 CC: [id number] DICTATION DATE: 02/24/19 1436 NEW CAR SALESPERSON: 02/24/19 2354 ADM IN [facility] [address] [place] [address]
[2019-02-26 10:59] LABS: APTT 50.6 SECONDS (22.8-39.4); D-DIMER-QUANTITATIVE 3.74 ug/mLFEU (0.20-0.54)
[2019-02-26 11:00] LABS: INR 2.31 (0.85-1.17); PROTIME 24.7 SECONDS (11.6-15.0)
--- NOTE | 2019-02-26 11:00 | NUR ---
REASSESSMENT COMPLETED. VSS. TURNED AND REPOSITIONED IN BED.
--- NOTE | 2019-02-26 12:00 | NUR ---
PATIENT INCONTINENT LOOSE DARK STOOL, CLEANED, LINENS CHANGED, AND TURNED, REPOSITIONED.
--- NOTE | 2019-02-26 12:30 | NUR ---
CONSENT FOR BRONCHOSCOPY SIGNED BY DR. IVORY FLYNN AT ROOM FOR BRONCHOSCOPY.
--- NOTE | 2019-02-26 12:55 | NUR ---
BRONCHOSCOPY COMPLETED TOLERATED WELL.
--- NOTE | 2019-02-26 13:00 | NUR ---
PATIENT TURNED AND REPOSITIONED IN BED. VSS. BICARB GTT 100 MEQ STARTED AT 75 CC/HR PER ORDER.
--- NOTE | 2019-02-26 14:40 | NUR ---
PATIENTS SON AT BEDSIDE, UPDATED AND QUESTIONS ANSWERED. VSS.
--- NOTE | 2019-02-26 15:05 | NUR ---
REASSESSMENT COMPLETE, VSS. TURNED AND REPOSITIONED. URINE SENT TO LAB.
[2019-02-26 15:27] LABS: CREATININE - URINE 73.8 mg/dL (30-125)
[2019-02-26 15:30] LABS: PRO/CRE RATIO URINE 4.6 mg/g; PROTEIN - URINE 341.6 mg/dL (0.0-11.9)
[2019-02-26 16:00] LABS: APPEARANCE HAZY (CLEAR); BILIRUBIN NEGATIVE (NEGATIVE); COLOR DK YELLOW (YELLOW); GLUCOSE NEGATIVE (NEGATIVE); KETONE NEGATIVE (NEGATIVE); NITRITE NEGATIVE (NEGATIVE); PROTEIN 1+ mg/dL (NEGATIVE); UROBILINOGEN NORMAL (NORMAL)
[2019-02-26 16:01] LABS: BACTERIA MANY /hpf (NEGATIVE); EPITHELIAL CELLS 0-5 /hpf (0-5); YEAST >1+ /hpf (NONE SEEN)
[2019-02-26 16:02] LABS: MUCUS <1+ /lpf (NONE SEEN)
--- NOTE | 2019-02-26 17:00 | NUR ---
PATIENT TURNED AND REPOSITIONED. VSS.
--- NOTE | 2019-02-26 18:24 | NUR ---
PATIENT INCONTINENT OF BOWEL, LOOSE BM, CLEANED AND LINENS CHANGED.
--- NOTE | 2019-02-26 18:43 | NUR ---
PROPOFOL AND TUBING CHANGED.
--- NOTE | 2019-02-26 19:30 | NUR ---
PT SEDATED, ETT PATENT TO VENT ON A/C, OGT IN PLACE TO LIWS, RIGHT IJ CVL INTACT WITH MULTI IVF'S INFUSING, +3 GENERALIZED PITTING EDEMA NOTED, BILAT SWR IN USE, DOVER PATENT TO BSD, ON BARIATRIC BED, PLACED IN TURN MODE, VITALS STABLE, WILL CONT TO MONITOR
--- NOTE | 2019-02-26 21:00 | NUR ---
PT REMAINS SEDATED WITH NO CHANGES NOTED, Q15 MINUTES B/P TAKEN TO MONITOR LEVOPHED GTT, WILL CONT TO MONITOR
--- NOTE | 2019-02-26 22:30 | NUR ---
SPOKE WITH PT DAUGHTER, SHE WANTS DR DE OLIVEIRA CONSULTED TO SEE IF PT IS REJECTING RECENT SHOULDER REPLACEMENT
--- NOTE | 2019-02-26 23:56 | MORECARE ---
CASE MANAGEMENT DISCHARGE SUMMARY PATIENT: INDIRA ADAN UNIT: [id number] ADM DATE: 02/24/19 AGE: 73 : 44 SEX: F ROOM/BED: D.2310 AUTHOR: SAW CANSECO PHYSICIAN: REFERRING PHYSICIAN: ALLA MUNUGIA MD DATE OF SERVICE: 02/26/19 Discharge Plan Patient Name: INDIRA ADAN [facility] [facility] 1945 Planned Disposition: Anticipated Discharge Date: Discharge Date: Expected LOS: Initial Reviewer: [email or web address] Initial Review Date: 02/25/2019 Generated: 02/27/19 12:56 am Patient Name: INDIRA ADAN Page [id number] at 5613 All edits/amendments must be made on the electronic document DICTATION DATE: 02/26/192355 AUDIO VIDEO TECH: BAL 02/26/192355 RPT#: [id number] DC DATE: STATUS: ADM IN [facility] [address] [place] [address] END OF REPORT
[2019-02-27] VITALS (97 sets, daily range): BP systolic 73–156; BP diastolic 35–77
--- NOTE | 2019-02-27 00:03 | MORECARE ---
CASE MANAGEMENT DISCHARGE SUMMARY PATIENT: INDIRA ADAN UNIT: [id number] ADM DATE: 02/24/19 AGE: 73 : 44 SEX: F ROOM/BED: D.2310 AUTHOR: SAW CANSECO PHYSICIAN: REFERRING PHYSICIAN: ALLA MUNGUIA MD DATE OF SERVICE: 02/27/19 Discharge Plan Patient Name: INDIRA ADAN [facility] : 1945 Planned Disposition: Anticipated Discharge Date: Discharge Date: Expected LOS: Initial Reviewer: [email or web address] Initial Review Date: 02/25/2019 Generated: 02/27/19 1:02 am DCPIA - Discharge Planning Initial Assessment Updated by [id number]: Bailey Joel on 02/26/19 11:58 pm * Is the patient Alert and Oriented? No * How many steps to enter\exit or inside your home? ramp * PCP JAZ PEREZ * [facility]acy [facility] * Preadmission Environment Home with Family * ADLs Partial Dependent * Partial ADLs (Assistance needed) Ambulation Bathing Dressing Eating Medication Management Toileting Transfers * Other Equipment OMARI BSC, WALKER, SHOWER W BARS, LIFT CHAIR * List name and contact numbers for known caregivers / representatives who currently or will assist patient after discharge: RADHA ADAN - DAUGHTER- [phone] * Verbal permission to speak to the caregivers and representatives has been obtained from the patient. N/A * Community resources currently utilized Home Health * Please name any agencies selected above. [facility] * Additional services required to return to the preadmission environment? No * Can the patient safely return to the preadmission environment? Yes * Has this patient been hospitalized within the prior 30 days at any hospital? Yes Last DP export: 02/26/19 10:56 Patient Name: INDIRA ADAN Page [phone] at 0003 All edits/amendments must be made on the electronic document DICTATION DATE: 02/27/191 PUNCH OUT CREW MEMBER: BAL 02/27/19 0002 RPT#: [id number] DC DATE: STATUS: ADM IN [facility] [address] [place] [address] END OF REPORT
--- NOTE | 2019-02-27 00:10 | MORECARE ---
CASE MANAGEMENT DISCHARGE SUMMARY PATIENT: INDIRA ADAN UNIT: [id number] ADM DATE: 02/24/19 AGE: 73 : 44 SEX: F ROOM/BED: D.2310 AUTHOR: AJITH,DOC PHYSICIAN: REFERRING PHYSICIAN: ALLA MUNGUIA MD DATE OF SERVICE: 02/27/19 Discharge Plan Patient Name: INDIRA ADAN Facility: [facility]:[place] : 1945 Planned Disposition: Anticipated Discharge Date: Discharge Date: Expected LOS: Initial Reviewer: [email or web address] Initial Review Date: 02/25/2019 Generated: 02/27/19 1:09 am Comments DCP- Discharge Planning Updated by [email or web address]: Bailey Joel on 02/26/19 11:[address] LATE ENTRY 02/25/19 Patient Name: INDIRA ADAN Admission Status: Elective Accout number: [id number] Admission Date: 02-24-2019 : 1945 Admission Diagnosis: Attending: ALLA MUNGUIA Current LOS: 3 Anticipated DC Date: Planned Disposition: Primary Insurance: MEDICARE PART A ONLY Discharge Planning Comments: CM met with patient's daughter Shani to complete initial dc planning assessment. Patient is currently on vent sedated. CM educated patient on the CM role and verbal consent given by patient to complete assessment. Patient lives at home with her and daughter where she is partially dependent with her care. At discharge patient plans to return home and feels this is a safe discharge. CM discussed availability of home health, rehab services, and medical equipment. Her daughter will be her m48/m60 tank driver home. Plan to resume [facility] upon discharge. Daughter is refusing at this time to return to inpatient rehab. Patient's daughter denied known discharge needs at this time. CM will continue to follow and will assist as needed with dc plans/needs. Rolling Up Machine Operator: Bailey Joel DCPIA - Discharge Planning Initial Assessment Updated by [email or web address]: Bailey Joel on 02/26/19 11:58 pm * Is the patient Alert and Oriented? No * How many steps to enter\exit or inside your home? ramp * PCP JAZ PEREZ * [facility]acy [facility] * Preadmission Environment Home with Family * ADLs Partial Dependent * Partial ADLs (Assistance needed) Ambulation Bathing Dressing Eating Medication Management Toileting Transfers * Other Equipment OMARI BSC, WALKER, SHOWER W BARS, LIFT CHAIR * List name and contact numbers for known caregivers / representatives who currently or will assist patient after discharge: SHANI ADAN - DAUGHTER- [phone] * Verbal permission to speak to the caregivers and representatives has been obtained from the patient. N/A * Community resources currently utilized Home Health * Please name any agencies selected above. [facility] * Additional services required to return to the preadmission environment? No * Can the patient safely return to the preadmission environment? Yes * Has this patient been hospitalized within the prior 30 days at any hospital? Yes Last DP export: 02/26/19 11:03 Patient Name: INDIRA ADAN Page [phone] at 0010 All edits/amendments must be made on the electronic document DICTATION DATE: 02/27/198 PRIVACY ATTORNEY: BAL 02/27/198 RPT#: [id number] DC DATE: STATUS: ADM IN [facility] [address] [place] [address] END OF REPORT
--- NOTE | 2019-02-27 00:30 | NUR ---
PT REMAINS SEDATED, ETT PATENT TO VENT, B/P STABLE WITH LEVOPHED @ 6 MCG, WILL CONT TO MONITOR
--- NOTE | 2019-02-27 02:30 | NUR ---
PT HAD SMALL GREEN LIQUID BM, CLEANED PER STAFF, NO DISTRESS NOTED, VITALS STABLE
--- NOTE | 2019-02-27 04:00 | NUR ---
AM LAB DRAWN FROM RIGHT IJ CVL, REMAINS SEDATED, WILL CONT TO MONITOR
[2019-02-27 04:56] LABS: BASOPHILS 0.4 % (0-2); HEMATOCRIT 29.2 % (36.0-48.0); HEMOGLOBIN 9.5 g/dL (12-16); IMMATURE GRANULOCYTES 5.8 % (0-5); LYMPHOCYTES 6.4 % (15-50); MCH 30.4 pg (26.0-34.0); MCHC 32.5 g/dL (31.0-37.0); MCV 93.6 fL (80.0-100.0); MEAN PLATELET VOLUME 10.9 fL (7.4-10.4); MONOCYTES 6.4 % (2-11); PLATELET COUNT 72 10x3/uL (130-400); RBC 3.12 10x6/uL (4.00-5.40); RDW 15.7 % (11.5-14.5)
[2019-02-27 04:57] LABS: WBC 9.7 10x3/uL (4.8-10.8)
[2019-02-27 05:16] LABS: ALBUMIN 1.4 g/dL (3.4-5.0); ANION GAP 21.6 mmol/L (8-16); BILIRUBIN - TOTAL 1.89 mg/dL (0.2-1.3); CALCIUM 7.1 mg/dL (8.5-10.1); CARBON DIOXIDE 18.3 mmol/L (21.0-32.0); CREATININE - SERUM 5.9 mg/dL (0.6-1.3); MAGNESIUM - SERUM 2.1 mg/dL (1.8-2.4); PHOSPHOROUS 7.4 mg/dL (2.5-4.9); POTASSIUM - SERUM 4.9 mmol/L (3.5-5.1); PROTEIN - SERUM 4.4 g/dL (6.4-8.2); VANCOMYCIN - RANDOM 22.2 ug/mL (10.0-20.0)
--- NOTE | 2019-02-27 06:18 | NUR ---
VITALS STABLE, PT REMAINS SEDATED, FSBS-61, NO URINE OUTPUT NOTED FOR THIS SHIFT
--- NOTE | 2019-02-27 08:49 | NUR ---
Nutrition follow-up: Intubated, sedated with propofol @ 13.7 ml/hr Bronch today Labs reviewed Wt: 358# Received consult to begin TF from Dr. Fair Will start Nepro @ 25 ml/hr with gradual increase to goal rate of 50 ml/hr with 100 ml H2O flush Q 4 hours or per renal. Following.
--- NOTE | 2019-02-27 09:00 | NUR ---
PT TURNED AND REPOSITIONED FOR COMFORT, MONITORS ON AND WORKING, VITALS STABLE. NO FURTHER CHANGES AT THIS TIME. WILL CONTINUE TO OBSERVE.
--- NOTE | 2019-02-27 11:00 | NUR ---
NO CHANGES AT THIS TIME, SEE FLOW SHEET FOR FURTHER DETIALS. WILL CONTINUE TO OBSERVE.
[2019-02-27 11:10] LABS: FUNGUS STAIN Final report (())
[2019-02-27 15:10] LABS: ACID FAST SMEAR Negative (()); AFB SPECIMEN PROCESSING Concentration (())
--- NOTE | 2019-02-27 19:30 | NUR ---
PT SEDATED, ETT PATENT TO VENT ON A/C, FIO2 50%, RATE 24, TV-500, PEEP 8, OGT INPLACE WITH NEPRO @ 20 CC/HR, RIGHT IJ CVL INTACT WITH MULTI IVF INFUSING, BILAT SWR IN USE DOVER PATENT TO BSD WITH NO UOP NOTED, VITALS STABLE, WILL CONT TO MONITOR
--- NOTE | 2019-02-27 21:00 | NUR ---
PT REMAINS SEDATED, ORAL CARE PERFORMED, PT HAS THICK YELLOW/GREEN SECRETIONS, VITALS STABLE
--- NOTE | 2019-02-27 23:00 | NUR ---
PT RESTING, REMAINS SEDATED, SUCTIONED, VITALS REMAIN STABLE
[2019-02-28] VITALS (100 sets, daily range): BP systolic 98–160; BP diastolic 21–90
--- NOTE | 2019-02-28 01:00 | NUR ---
PT BATHED PER STAFF, GREEN LIQUID BM X1, LINENS CHANGED, TOLERATED WELL, B/P STABLE
--- NOTE | 2019-02-28 04:00 | NUR ---
AM LABS DRAWN FROM RIGHT IJ CVL, PT SEDATED, VITALS STABLE
[2019-02-28 04:46] LABS: APTT 47.6 SECONDS (22.8-39.4); INR 2.18 (0.85-1.17); PROTIME 23.6 SECONDS (11.6-15.0)
[2019-02-28 04:48] LABS: ALBUMIN 1.5 g/dL (3.4-5.0); BILIRUBIN - TOTAL 3.05 mg/dL (0.2-1.3); CREATININE - SERUM 6.3 mg/dL (0.6-1.3); MAGNESIUM - SERUM 2.1 mg/dL (1.8-2.4); PHOSPHOROUS 8.6 mg/dL (2.5-4.9); POTASSIUM - SERUM 5.5 mmol/L (3.5-5.1); PROTEIN - SERUM 4.9 g/dL (6.4-8.2)
[2019-02-28 04:55] LABS: ANION GAP 25.6 mmol/L (8-16); CALCIUM 6.9 mg/dL (8.5-10.1); CARBON DIOXIDE 12.9 mmol/L (21.0-32.0)
[2019-02-28 04:59] LABS: HEMATOCRIT 31.6 % (36.0-48.0); HEMOGLOBIN 10.4 g/dL (12-16); MCH 30.7 pg (26.0-34.0); MCHC 32.9 g/dL (31.0-37.0); MCV 93.2 fL (80.0-100.0); MEAN PLATELET VOLUME 10.8 fL (7.4-10.4); PLATELET COUNT 98 10x3/uL (130-400); RBC 3.39 10x6/uL (4.00-5.40); RDW 15.6 % (11.5-14.5)
--- NOTE | 2019-02-28 06:15 | NUR ---
PAGED DR DODSON, CALL RETURNED, INFORMED HIM OF THIS AM ABG RESULTS, RECIEVED ORDER TO INCREASE BICARB GTT
--- NOTE | 2019-02-28 07:20 | NUR ---
REPORT RECEIVED. ASSESSMENT COMPLETE PER FLOW SHEET. VSS. NO NEW CHANGES PT SEDATED RESTING COMFORTALBY WILL CONTINUE TO MONITOR
--- NOTE | 2019-02-28 09:20 | NUR ---
DR BLANCHARD AT BEDSIDE NEW ORDERS RECEIVED.
[2019-02-28 10:00] LABS: EOSINOPHILS 2 % (0-7); LYMPHOCYTES 4 % (15-50); MONOCYTES 12 % (2-11); NEUTROPHILS 64 % (40-80); PLATELET ESTIMATE DECREASED; SMUDGE CELLS OCC; TOXIC GRANULATION OCC
[2019-02-28 10:01] LABS: CRENATED CELLS OCC; TEAR DROP CELLS OCC
[2019-02-28 10:02] LABS: ANISOCYTOSIS OCC; POLYCHROMASIA OCC
--- NOTE | 2019-02-28 10:20 | NUR ---
FAMILY AT BEDSIDE GIVEN UPDATE. CONSENTS OBTAINED
--- NOTE | 2019-02-28 11:00 | NUR ---
REASSESSMENT COMPLETE PER FLOW SHEET.
--- NOTE | 2019-02-28 14:00 | NUR ---
DR LOVE AT BEDSIDE GIVEN UPDATE
--- NOTE | 2019-02-28 15:00 | NUR ---
REASSESSMENT COMPLETE PER FLOW SHEET. VSS. NO NEW CHANGE WILL CONTINUE TO MONITO
--- NOTE | 2019-02-28 17:00 | NUR ---
PT RESTING COMFORTABLY VSS NO NEW CHANGES WILL CONTINUE TO MONITOR
--- NOTE | 2019-02-28 19:20 | NUR ---
PT SEDATED, ETT PATENT TO VENT ON A/C, RIGHT IJ TRIALYSIS INTACT WITH MULTI IVF INFUSING, OGT IN PLACE WITH NEPRO @ 20 CC/HR, BILAT SWR IN USE, DOVER PATENT TO BSD WITH NO UOP NOTED, VITALS STABLE, LEVOPHED GTT DECREASED TO 1 MCG, WILL CONT TO MONITOR
--- NOTE | 2019-02-28 21:00 | NUR ---
LEVOPHED GTT D/C'D, B/P STABLE, NO DISTRESS NOTED
--- NOTE | 2019-02-28 23:25 | NUR ---
PT BATHED PER STAFF,+4 GENERALIZED EDEMA NOTED, VITALS STABLE, WILL CONT TO MONITOR
[2019-03-01] VITALS (78 sets, daily range): BP systolic 86–141; BP diastolic 41–96
--- NOTE | 2019-03-01 01:00 | NUR ---
PT REMAINS SEDATED, ETT PATENT TO VENT, CONT TO HAVE NO UOP, VITALS STABLE
--- NOTE | 2019-03-01 03:29 | NUR ---
PT REPOSITIONED, HOB @ 30 DEGREES, NO CHANGE NOTED IN CONDITION
[2019-03-01 04:51] LABS: APTT 49.6 SECONDS (22.8-39.4); INR 2.16 (0.85-1.17); PROTIME 23.4 SECONDS (11.6-15.0)
[2019-03-01 05:23] LABS: BASOPHILS 0.7 % (0-2); EOSINOPHILS 0.1 % (0-7); HEMATOCRIT 30.6 % (36.0-48.0); HEMOGLOBIN 10.2 g/dL (12-16); IMMATURE GRANULOCYTES 7.7 % (0-5); LYMPHOCYTES 6.9 % (15-50); MCH 30.9 pg (26.0-34.0); MCHC 33.3 g/dL (31.0-37.0); MCV 92.7 fL (80.0-100.0); MEAN PLATELET VOLUME 11.4 fL (7.4-10.4); MONOCYTES 4.8 % (2-11); NEUTROPHILS 79.8 % (40-80); RDW 15.5 % (11.5-14.5)
[2019-03-01 05:24] LABS: PLATELET COUNT 56 10x3/uL (130-400); WBC 13.8 10x3/uL (4.8-10.8)
--- NOTE | 2019-03-01 05:30 | NUR ---
pt remains sedated, vitals stable, cont current poc
[2019-03-01 05:38] LABS: MAGNESIUM - SERUM 2.3 mg/dL (1.8-2.4)
[2019-03-01 05:39] LABS: CREATININE - SERUM 6.6 mg/dL (0.6-1.3)
[2019-03-01 05:40] LABS: ANION GAP 24.6 mmol/L (8-16); CARBON DIOXIDE 18.5 mmol/L (21.0-32.0); POTASSIUM - SERUM 6.1 mmol/L (3.5-5.1)
[2019-03-01 05:41] LABS: ALBUMIN 1.4 g/dL (3.4-5.0); BILIRUBIN - TOTAL 3.12 mg/dL (0.2-1.3); PROTEIN - SERUM 4.2 g/dL (6.4-8.2)
[2019-03-01 05:42] LABS: PHOSPHOROUS 10.8 mg/dL (2.5-4.9); VANCOMYCIN - RANDOM 18.8 ug/mL (10.0-20.0)
[2019-03-01 05:43] LABS: CALCIUM 6.6 mg/dL (8.5-10.1)
--- NOTE | 2019-03-01 07:00 | NUR ---
REPORT RECEIVED. ASSESSMENT COMPLETE PER FLOW SHEET. VSS. PT RESTING COMFORTABLY WILL CONTINUE TO MONITOR
--- NOTE | 2019-03-01 09:00 | NUR ---
DR. CHRISTOPHER AT BEDSIDE, UPDATE GIVEN, WILL CON'T TO MONITOR
--- NOTE | 2019-03-01 09:35 | NUR ---
NUTRITION F/U PT REMAINS SEDATED ON VENT. ISOLATION. NEPRO AT 20 CC/HR PROVIDING 864 KCAL, 39 GM PROTEIN PER DAY. DIPRIVAN AT 18 CC/HR PROVIDING 475 KCAL PER DAY. TOTAL 1339 KCAL, [address] RD FOLLOWING
--- NOTE | 2019-03-01 11:04 | NUR ---
REASSESSMENT COMPLETE PER FLOW SHEET. VSS NO NEW CHANGES WILL CONTINUE TO MONITOR
--- NOTE | 2019-03-01 11:36 | OP ---
PATIENT NAME: INDIRA ADAN MEDICAL RECORD: [id number] :43 LOCATION:D.ICU D.2310 ADMISSION DATE:02/24/19 SURGEON: NAHEED PARRY MD DATE OF OPERATION: 02/28/2019 PREOPERATIVE DIAGNOSES: 1. Acute renal failure. 2. Acute respiratory failure on the ventilator. 3. Morbid obesity. 4. Clostridium difficile colitis. 5. Diabetes mellitus. POSTOPERATIVE DIAGNOSES: 1. Acute renal failure. 2. Acute respiratory failure on the ventilator. 3. Morbid obesity. 4. Clostridium difficile colitis. 5. Diabetes mellitus. PROCEDURE: Right IJ triple-lumen catheter exchanged for a 15 cm Trialysis catheter. SURGEON: Naheed Parry MD REPORT OF PROCEDURE: The patient's right neck and indwelling triple lumen central line were all prepped and draped in sterile fashion. We cut the distal port and I was able to place a wire through the indwelling catheter. The catheter was removed leaving the wire in place. Over this wire, a dilator was placed followed by the Trialysis catheter. The catheter was sutured into place with 4-0 nylons. We flushed the catheter with normal saline and there was noted to be good blood return through the catheter. The dressing was then applied. COMPLICATIONS: None. CONDITION: Stable. ANESTHESIA: General endotracheal. BLOOD LOSS: 30 mL. Procedure done in the ICU at the bedside. TRANSINT:[id number] Voice Confirmation ID: [id number] DOCUMENT ID: [id number] NAHEED PARRY MD at 1136 CC: [id number] DICTATION DATE: 02/28/19 1425 ASSISTIVE TECHNOLOGY SPECIALIST: 02/28/19 1440 [place] [address]
--- NOTE | 2019-03-01 15:00 | NUR ---
REASSESSMENT COMPLETE PER FLOW SHEET. VSS. NO NEW CHANGES WILL CONTINUE TO MONITOR. WILL CONTINUE TO MONITOR
--- NOTE | 2019-03-01 17:15 | NUR ---
FAMILY AT BEDSIDE, UPDATE GIVEN, WILL CON'T TO MONITOR
--- NOTE | 2019-03-01 19:00 | NUR ---
REPORT RECEIVED. INITIAL ASSESSMENT COMPLETE. MORBIDLY OBESE PT ON BARIATRIC BED WITH REPOSITIONING IN PROCESS. PT SEDATED DOES REACT TO TACTILE STIMULI AND GRIMACES WITH ORAL SUCTIONING. ORAL ETT TO MECHANICAL VENT SEE RESP NOTES. CM READING SR WITHOUT ECTOPY ALARMS ON AND AUDIBLE. PT RECEIVING TUBE FEEDS VIA OGT. DOVER IN PLACE SCANT AMOUNT OF MARIA TERESA URINE NOTED TO TUBING. RIGHT IJ TRIALYSIS NOTED DRESSING CDI WITH DIPRIVAN AND DOPAMINE INFUSING SEE IV FLOWSHEET DOPAMINE IS AT SET RATE NOT TITRATING. LEFT SHOULDER WITH STERISTRIPS NOTED TO MOSTLY HEALED INCISION NO DRAINAGE NOTED. PT HAS GENERALIZED EDEMA ALL EXTREMITIES ELEVATED WITH PILLOW. BED LOW POSITION VSS WILL CONTINUE TO MONITOR SEE FLOWSHEETS FOR COMPLETE ASSESSMENT DETAILS.
--- NOTE | 2019-03-01 21:00 | NUR ---
NO CHANGES PT BED IN TURN MODE ORAL CARE DONE CPOC VSS
--- NOTE | 2019-03-01 22:15 | NUR ---
PT HAD LARGE BM COMPLETE LINEN CHANGE
--- NOTE | 2019-03-01 23:00 | NUR ---
REASSESSMENT MADE NO CHANGES ORAL CARE DONE PT REPOSITIONED PER BED TURN CPOC WILL CONTINUE TO MONITOR
[2019-03-02] VITALS (24 sets, daily range): BP systolic 90–119; BP diastolic 43–75
--- NOTE | 2019-03-02 01:00 | NUR ---
PEDAL PULSES PER DOPPLER RIGHT GROIN SITE CLEAN DRY AND INTACT. PT DENIES PAIN OR DISCOMFORT VSS WILL CONTINUE TO MONITOR
--- NOTE | 2019-03-02 03:45 | NUR ---
PT HAD LARGE LIQUID BM COMPLETE CHG LINEN CHANGE.
--- NOTE | 2019-03-02 04:52 | NUR ---
RADIOLOGY HERE FOR CHEST X RAY NEEDED 3 PERSONS TO ASSIST
[2019-03-02 06:23] LABS: HEMATOCRIT 29.3 % (36.0-48.0); HEMOGLOBIN 9.8 g/dL (12-16); MCH 30.7 pg (26.0-34.0); MCHC 33.4 g/dL (31.0-37.0); MCV 91.8 fL (80.0-100.0); MEAN PLATELET VOLUME 11.3 fL (7.4-10.4); PLATELET COUNT 63 10x3/uL (130-400); RBC 3.19 10x6/uL (4.00-5.40); RDW 15.2 % (11.5-14.5); WBC 10.8 10x3/uL (4.8-10.8)
[2019-03-02 06:28] LABS: BILIRUBIN - TOTAL 3.36 mg/dL (0.2-1.3); CARBON DIOXIDE 20.6 mmol/L (21.0-32.0); CREATININE - SERUM 5.1 mg/dL (0.6-1.3); MAGNESIUM - SERUM 2.5 mg/dL (1.8-2.4)
[2019-03-02 06:29] LABS: ALBUMIN 2.2 g/dL (3.4-5.0); ANION GAP 19.9 mmol/L (8-16); PHOSPHOROUS 7.5 mg/dL (2.5-4.9); POTASSIUM - SERUM 4.5 mmol/L (3.5-5.1); PROTEIN - SERUM 5.8 g/dL (6.4-8.2)
--- NOTE | 2019-03-02 07:45 | NUR ---
patient on vent ett secure. rij trialysis dialysis catheter infusing with d10 at 20 ml hour, diprivan at 15 mcg/kg/min. dopamine 5 mcg/kg/min. og infusing with nephro at 20 ml hour. 10 ml flush q 1 hour. resting comfortably no distress
[2019-03-02 08:10] LABS: HEPATITIS C ANTIBODY <0.1 (0.0-0.9)
[2019-03-02 08:14] LABS: EOSINOPHILS 1 % (0-7); HYPOCHROMASIA 1+; PLATELET ESTIMATE DECREASED; PLATELET MORPHOLOGY GIANT PLTS PRESENT
[2019-03-02 08:21] LABS: LYMPHOCYTES 9 % (15-50); MONOCYTES 9 % (2-11); NEUTROPHILS 78 % (40-80); SMUDGE CELLS 3+
--- NOTE | 2019-03-02 09:00 | NUR ---
no changes. no distress
[2019-03-02 10:25] LABS: INR 2.15 (0.85-1.17); PROTIME 23.3 SECONDS (11.6-15.0)
--- NOTE | 2019-03-02 11:00 | NUR ---
bilateral lung sounds equal, wheezing noted bilaterally. no distress.
--- NOTE | 2019-03-02 13:00 | NUR ---
family here update given.
--- NOTE | 2019-03-02 14:00 | NUR ---
warming blanket applied to patient for ax. temp 93.6. dialysis nurse here. family at bedside.
--- NOTE | 2019-03-02 15:00 | NUR ---
dialysis in progress warming blanket on patient for low temp. son at bedside
--- NOTE | 2019-03-02 17:00 | NUR ---
DIALYSIS COMPLETE 3 LITERS REMOVED. PATIENT TOLERATED WELL. NO ADDITIONAL MEDS FOR BLOOD PRESSURE REQUIRED.
--- NOTE | 2019-03-02 17:30 | NUR ---
SMALL GREEN LOOSE STOOL LIDYA CARE DONE. NEW MEDIPLEX APPLIED TO COCCYX AREA BRUISING NOTED. NO SKIN BREAKDOWN OR REDNESS NOTED.MINIMAL URINE OUTPUT. NONE DRAINED FROM BAG.
--- NOTE | 2019-03-02 18:00 | NUR ---
LATE ON SOME IV MEDS DUE TO DILAYSIS.
--- NOTE | 2019-03-02 19:00 | NUR ---
ASSESSMENT COMPLETED. OGT WITH NEPRO AT 50 ML/HR WITH FLUSHED AT 10ML EVERY HOUR. ETT IN WITH SIZE 8, AT 25 CM. SETTINGS: FIO2 40, PEEP 8, TIDAL VOLUME 500. RESERVING L ARM, L SHOULDER STERI STRIPS INTACT.
--- NOTE | 2019-03-02 21:00 | NUR ---
VSS. PATIENT TURNING VIA BED TURNING MACHINE. NO CHANGES
--- NOTE | 2019-03-02 23:00 | NUR ---
RE-ASSESSMENT COMPLETED. VSS. NO CHANGES SINCE LAST ASSESSMENT.
[2019-03-03] VITALS (37 sets, daily range): BP systolic 76–159; BP diastolic 36–87
--- NOTE | 2019-03-03 01:00 | NUR ---
VSS. NO CHANGES. CONT POC.
--- NOTE | 2019-03-03 03:13 | NUR ---
RE-ASSESSMENT COMPLETED. VSS. NO CHANGES SINCE LAST ASSESSMENT.
--- NOTE | 2019-03-03 05:00 | NUR ---
CHG BATH GIVEN. VSS. NO CHANGES TO PATIENT.
[2019-03-03 06:03] LABS: ALBUMIN 2.5 g/dL (3.4-5.0); ANION GAP 18.9 mmol/L (8-16); BILIRUBIN - TOTAL 2.95 mg/dL (0.2-1.3); CALCIUM 7.9 mg/dL (8.5-10.1); CARBON DIOXIDE 22.6 mmol/L (21.0-32.0); CREATININE - SERUM 4.5 mg/dL (0.6-1.3); POTASSIUM - SERUM 4.5 mmol/L (3.5-5.1); VANCOMYCIN - RANDOM 17.7 ug/mL (10.0-20.0)
--- NOTE | 2019-03-03 06:15 | NUR ---
PT COUGHED OGT OUT. ATTEMPT TO PLACE ANOTHER OGT UNSUCCESSFUL X2. PTS HEART RATE DROPPED TO 50'S. WILL PASS ALONG IN REPORT TO DAY SHIFT RN.
[2019-03-03 06:24] LABS: BASOPHILS 0.2 % (0-2); EOSINOPHILS 0.1 % (0-7); HEMATOCRIT 27.5 % (36.0-48.0); IMMATURE GRANULOCYTES 8.7 % (0-5); LYMPHOCYTES 5.5 % (15-50); MCH 30.1 pg (26.0-34.0); MCHC 32.7 g/dL (31.0-37.0); MEAN PLATELET VOLUME 11.2 fL (7.4-10.4); MONOCYTES 8.4 % (2-11); NEUTROPHILS 77.1 % (40-80); PLATELET COUNT 72 10x3/uL (130-400); RBC 2.99 10x6/uL (4.00-5.40); RDW 15.5 % (11.5-14.5); WBC 13.4 10x3/uL (4.8-10.8)
--- NOTE | 2019-03-03 09:00 | NUR ---
LYING IN BED ON VENT AT THIS TIME. VSS. NO ACUTE DISTRESS NOTED. PT SEDATED, DOES NOT FOLLOW COMMANDS. PT TURNED Q2H. ORAL CARE PROVIDED Q2H. LIDYA CARE PROVIDED. BED ALARM ON. WILL CONTINUE PLAN OF CARE.
--- NOTE | 2019-03-03 10:37 | NUR ---
NOTED OGT HAD COME OUT DURING LAST SHIFT. ATTEMPTED TO PLACE NEW OGT X 2 ATTEMPTS. NOTED FIRST ATTEMPT HEART RATE DECREASED TO 59 AT LOWEST, INSERTION STOPPED AT THIS TIME, HEART RATE IMMEDIATELY CAME BACK UP TO 70S. ATTEMPTED ONE MORE TIME, WAS SUCCESSFUL, PLACEMENT VERIFIED VIA AUSCULTATION. PER DR MUNGUIA KUB ORDERED TO ALSO VERIFY PLACEMENT. DR MUNGUIA ALSO NOTIFIED OF HEART RATE DECREASE DURING FIRST ATTEMPT. HEART RATE STAYED IN 70S DURING THE SECOND ATTEMPT AND DID NOT DECREASE AGAIN. VSS. AFTER PLACEMENT VERIFIED VIA XRAY WILL RESTART TUBE FEEDINGS.
--- NOTE | 2019-03-03 12:11 | NUR ---
PER DR LO GARCIA TO [facility].
--- NOTE | 2019-03-03 12:13 | NUR ---
PER DR NILDA MCKNIGHT LACTULOSE.
--- NOTE | 2019-03-03 12:19 | NUR ---
PER DR NILDA MCKNIGHT ASCORBIC ACID SINCE PT IS IN RENAL FAILURE.
--- NOTE | 2019-03-03 13:55 | NUR ---
PER DR MARTIN, NO INDICATIONS THAT PT HAS DVT TO LT ARM THEREFORE PT NO LONGER RESERVE LEFT ARM FOR DVT.
--- NOTE | 2019-03-03 14:09 | NUR ---
FAMILY HAS PERSONALLY HAD UPDATES WITH DR BLANCHARD, DR DODSON, DR MUNGUIA, AND DR MARTIN. ALL QUESTIONS HAVE BEEN ADDRESSED BY PHYSICIANS. VSS. WILL CONTINUE PLAN OF CARE.
--- NOTE | 2019-03-03 14:14 | NUR ---
HEART RATE DECREASED FROM 70-80S TO 50-60S SINUS WITH SBP DROPPED FROM 130 TO 70S SINCE DOPAMINE DCD. PER DR MUNGUIA RESTART DOPAMINE.
--- NOTE | 2019-03-03 16:07 | NUR ---
SPOKE WITH FAMILY. UPDATES PROVIDED. VSS. NO ACUTE DISTRESS NOTED. WILL CONTINUE PLAN OF CARE.
--- NOTE | 2019-03-03 17:29 | NUR ---
INCONTINENT BOWEL MOVEMENT NOTED AT THIS TIME. TOTAL LINEN CHANGE ALSO PROVIDED. DOVER CARE PROVIDED. NO ACUTE DISTRESS NOTED. VSS. TURNED Q2H, ORAL CARE PROVIDED Q2H. WILL CONTINUE PLAN OF CARE.
--- NOTE | 2019-03-03 19:00 | NUR ---
PATIENT ASSESSMENT COMPLETED AT THIS TIME NO CHANGES FROM NURSE REPORT, PATIENT AWAKE ALERT ORIENTED X4, NO DISTRESS OR COMPLAINTS NOTED AT THIS TIME. vITAL SIGNS STABLE, WILL CONTINUE TO MONITOR FOR CHANGES.
--- NOTE | 2019-03-03 19:00 | NUR ---
PATIENT ASSESSMENT COMPLAINT AT THIS TIME PATIENT ATTEMPTED NOTED TO BE 94.2 PATIENT WAS PLACED UNDER AIRFLOW OUR SYSTEM. nO SIGNIFICANT CHANGE IN VITAL SIGNS VITAL SIGNS REMAINED STABLE. PATIENT ON VENTILATOR SEDATED vac SCALE OF 3.
--- NOTE | 2019-03-03 21:00 | NUR ---
PATIENT'S TEMPERATURE IS IMPROVING 95.2 AXILLARY. NO FURTHER CHANGES NOTED VITAL SIGNS REMAINED STABLE WE WILL CONTINUE TO MONITOR.
--- NOTE | 2019-03-03 23:00 | NUR ---
Patient reassessment completed at this time patient's core temperature improving 97.0. No other significant changes noted. Vital signs remained stable. We will continue to monitor for changes.
[2019-03-04] VITALS (68 sets, daily range): BP systolic 75–134; BP diastolic 29–84
--- NOTE | 2019-03-04 01:00 | NUR ---
Patient resting with eyes closed on the ventilator. Vital signs still stable no significant changes at this time we will continue to monitor.
--- NOTE | 2019-03-04 03:00 | NUR ---
Patient reassessment completed at this time no changes noted vital signs stable stable, will continue to monitor for changes.
--- NOTE | 2019-03-04 04:45 | NUR ---
PT GIVEN CHG BATH AND COMPLETE LINEN CHANGED
[2019-03-04 05:23] LABS: HEMATOCRIT 24.4 % (36.0-48.0); HEMOGLOBIN 8.1 g/dL (12-16); MCHC 33.2 g/dL (31.0-37.0); MCV 90.4 fL (80.0-100.0); MEAN PLATELET VOLUME 10.8 fL (7.4-10.4); RDW 15.4 % (11.5-14.5); WBC 11.6 10x3/uL (4.8-10.8)
[2019-03-04 05:24] LABS: PLATELET COUNT 53 10x3/uL (130-400)
[2019-03-04 05:28] LABS: ALBUMIN 2.8 g/dL (3.4-5.0); ANION GAP 21.8 mmol/L (8-16); BILIRUBIN - TOTAL 2.6 mg/dL (0.2-1.3); CALCIUM 7.5 mg/dL (8.5-10.1); CARBON DIOXIDE 21.3 mmol/L (21.0-32.0); CREATININE - SERUM 5.1 mg/dL (0.6-1.3); MAGNESIUM - SERUM 2.3 mg/dL (1.8-2.4); PHOSPHOROUS 7.5 mg/dL (2.5-4.9); POTASSIUM - SERUM 5.1 mmol/L (3.5-5.1); PROTEIN - SERUM 5.4 g/dL (6.4-8.2); VANCOMYCIN - RANDOM 16.8 ug/mL (10.0-20.0)
[2019-03-04 05:49] LABS: LYMPHOCYTES 14 % (15-50); MONOCYTES 2 % (2-11); NEUTROPHILS 81 % (40-80); PLATELET ESTIMATE DECREASED
--- NOTE | 2019-03-04 07:06 | NUR ---
report recieved. assessment done. see adl's q 2 hrs. patient lying in bed on vent 40%. patient sedated. 4+ pitting edema inlower extremities. pale skin. minimal weeping edema. enteric precautions.
--- NOTE | 2019-03-04 09:54 | NUR ---
Nutrition follow-up: Remains intuabated; levophad started Daily dialysis Nepro @ 20 ml/hr -> to increase to 30 ml/hr today RDN following.
--- NOTE | 2019-03-04 09:57 | NUR ---
family at bedside. discussed condition. son feels that once infection resolves she will come out of this
--- NOTE | 2019-03-04 11:06 | NUR ---
SENTHIL BLOOD SUGAR 191. D10 NS TURNED OFF PER DR BLANCHARD. EXPLAINED BACKGROUND TO WHY WE HAD IT GOING IN THE FIRST PLACE AND CONFIRMED TO TURN IT OFF
--- NOTE | 2019-03-04 13:05 | NUR ---
daughter called. update given. password provided.
--- NOTE | 2019-03-04 15:00 | NUR ---
patient sedated. no distress. family updated.
--- NOTE | 2019-03-04 17:38 | NUR ---
patient had bm and full linen change chg bath given
--- NOTE | 2019-03-04 19:00 | NUR ---
ASSESSMENT COMPLETED. LAYING IN BED ON VENT: PEEP 7, TIDAL VOLUME 500, 40% OXYGEN, A/C. OGT IN PLACE, PATENT. APPROX 5 ML RESIDUAL, CHECKED PLACEMENT VIA AUSCULATION. NEPRO TO OGT AT 30 ML/HR WITH 10 ML/HR FLUSH. DIALYSIS TREATMENT AT BEDSIDE. PROPOFOL AT 15 MCG/MG/MIN AT RIKERS OF 3, LEVOPHED AT 3 MG/MIN INFUSING VIA R IJ. LESLYE UPPER ARMS WEEPING WITH 4+ PITTING EDEMA. TURNING PATIENT VIA MACHINE ON BED. CONT ON ENTERIC PRECAUTIONS D/T C-DIFF.
--- NOTE | 2019-03-04 21:00 | NUR ---
DIALYSIS PULLED 3 KG OFF PATIENT WITHOUT DIFFICULTY. VSS.
--- NOTE | 2019-03-04 21:58 | NUR ---
TITRATED LEVOPHED TO 2 MCG AT THIS TIME.
--- NOTE | 2019-03-04 22:38 | NUR ---
INCREASED TUBE FEEDING TO 40 ML/HR VIA ORDERS TO INCREASE UP TO 50ML/HR TOTAL. RESIDUAL AT 5 ML.
--- NOTE | 2019-03-04 23:00 | NUR ---
RE-ASSESSMENT COMPLETED. T= 93 DEGREE F. PLACED ON [facility]. VSS
[2019-03-05] VITALS (37 sets, daily range): BP systolic 90–119; BP diastolic 40–59
--- NOTE | 2019-03-05 01:00 | NUR ---
TEMP AT MIDNIGHT- 93.2, TEMP NOW WAS 93.1. STILL ON BEAR HUGGER. AT 0028- DECREASED LEVOPHED TO 1 MCG. NO OTHER CHANGES. VSS
--- NOTE | 2019-03-05 03:00 | NUR ---
RE-ASSESSMENT COMPLETED. STILL ON BEAR HUGGER. T: 94.4, TEMP AT 0200: 94.3. NO OTHER CHANGES. 2 LARGE BM THIS SHIFT. CHG BATH GIVEN WITH LINEN CHANGE.
--- NOTE | 2019-03-05 03:38 | NUR ---
LEVOPHED TURNED OFF FROM 1 MCG. STILL CONT TO MONITOR BP Q 15 MINS ON MONITOR.
--- NOTE | 2019-03-05 04:00 | NUR ---
TEMP: 97.5. BEAR HUGGER TURNED OFF.
--- NOTE | 2019-03-05 04:59 | NUR ---
RESIDUAL VIA OGT WAS 1 ML. INCREASED TUBE FEEDING TO 50 ML/HR PER ORDRES
[2019-03-05 05:59] LABS: BASOPHILS 0.1 % (0-2); EOSINOPHILS 0 % (0-7); HEMATOCRIT 22.1 % (36.0-48.0); IMMATURE GRANULOCYTES 1.8 % (0-5); LYMPHOCYTES 8.8 % (15-50); MCH 30.5 pg (26.0-34.0); MCHC 33.5 g/dL (31.0-37.0); MCV 90.9 fL (80.0-100.0); MONOCYTES 8.8 % (2-11); NEUTROPHILS 80.5 % (40-80); RBC 2.43 10x6/uL (4.00-5.40); RDW 15.6 % (11.5-14.5)
[2019-03-05 06:01] LABS: HEMOGLOBIN 7.4 g/dL (12-16); WBC 8.2 10x3/uL (4.8-10.8)
[2019-03-05 06:02] LABS: PLATELET COUNT 35 10x3/uL (130-400)
[2019-03-05 06:03] LABS: ALBUMIN 2.9 g/dL (3.4-5.0); ANION GAP 20.9 mmol/L (8-16); BILIRUBIN - TOTAL 2.74 mg/dL (0.2-1.3); CALCIUM 8.1 mg/dL (8.5-10.1); CARBON DIOXIDE 20.9 mmol/L (21.0-32.0); POTASSIUM - SERUM 3.8 mmol/L (3.5-5.1); PROTEIN - SERUM 5.2 g/dL (6.4-8.2); VANCOMYCIN - RANDOM 12.7 ug/mL (10.0-20.0)
--- NOTE | 2019-03-05 06:42 | NUR ---
CRITICAL LAB FOR HGB 7.4, PLT 35. NOTIFIED DR. MARTIN. NEW ORDER FOR 1 UNIT PRBC AFTER DIALYSIS AND TO LET NEPHROLOGY KNOW. READ BACK AND VERIFIED
--- NOTE | 2019-03-05 08:51 | NUR ---
per report of itzel. dr nunez stated to give blood during dialysis
--- NOTE | 2019-03-05 10:45 | NUR ---
unit of blood started
[2019-03-05 11:10] LABS: FUNGUS CULTURE RESULT 1 Candida krusei (()); FUNGUS MYCOLOGY CULTURE Final report (())
--- NOTE | 2019-03-05 11:30 | NUR ---
unit infusing per dialysis
--- NOTE | 2019-03-05 12:39 | NUR ---
unit of blood infused. tolerated.
--- NOTE | 2019-03-05 12:39 | NUR ---
asked dr izaguirre about blood sugars being high. stated does not want to start insulin unless sugars go over 200. fear of hypoglycemia due to rapid response 02/24/19
--- NOTE | 2019-03-05 12:40 | NUR ---
dr izaguirre spoke with family regarding status. family agreed with future trach and peg placement.
--- NOTE | 2019-03-05 12:40 | NUR ---
trigylcerides ordered per dr izaguirre
--- NOTE | 2019-03-05 13:48 | NUR ---
dialysis done at this time
--- NOTE | 2019-03-05 13:48 | NUR ---
2700 ml of fluid taken off
--- NOTE | 2019-03-05 13:49 | NUR ---
patient has skin tears on r side of extremity. weeping fluid present at these skin tears.
--- NOTE | 2019-03-05 15:11 | NUR ---
meds given per mar. no distress. turned. sedated. no family at bedside. see adl's charted every 2 hours. see reassessment.
--- NOTE | 2019-03-05 19:00 | NUR ---
ASSESSMENT COMPLETED. VSS. ETT SIZE 8 AT 24 CM AT LIP. O2 40%, PEEP 7, VOLUME 500. OGT PATENT, PLACEMENT CHECKED AND RESIDUAL <1 ML. NEPRO AT 50ML/HR WITH 10 ML FLUSH EACH HOUR. R IJ PATENT. PATIENT TURNED.
--- NOTE | 2019-03-05 20:14 | MORECARE ---
CASE MANAGEMENT DISCHARGE SUMMARY PATIENT: INDIRA ADAN UNIT: [id number] ADM DATE: 02/24/19 AGE: 73 : 43 SEX: F ROOM/BED: D.2310 AUTHOR: AJITH,DOC PHYSICIAN: REFERRING PHYSICIAN: ALLA MUNGUIA MD DATE OF SERVICE: 03/05/19 Discharge Plan Patient Name: INDIRA ADAN Facility: [facility]:[place] : 1945 Planned Disposition: Anticipated Discharge Date: Discharge Date: Expected LOS: Initial Reviewer: [email or web address] Initial Review Date: 02/25/2019 Generated: 03/05/19 9:14 pm Comments DCP- Discharge Planning Updated by [id number]: Bailey Joel on 03/05/19 7:[address] CM notified Radha Carr - Dialysis Coordinator with [facility] regarding patient and potential need for hemodialysis post acute care. Family spoke with Dr. Khan today and they will consent to trach and PEG possibly later this week. CM will continue to follow and assist as needed with discharge planning / needs DCP- Discharge Planning Updated by [id number]: Bailey Joel on 02/26/19 11:[address] LATE ENTRY 02/25/19 Patient Name: INDIRA ADAN Admission Status: Elective Accout number: [id number] Admission Date: 02-24-2019 : 1945 Admission Diagnosis: Attending: ALLA MUNGUIA Current LOS: 3 Anticipated DC Date: Planned Disposition: Primary Insurance: MEDICARE PART A ONLY Discharge Planning Comments: CM met with patient's daughter Shani to complete initial dc planning assessment. Patient is currently on vent sedated. CM educated patient on the CM role and verbal consent given by patient to complete assessment. Patient lives at home with her and daughter where she is partially dependent with her care. At discharge patient plans to return home and feels this is a safe discharge. CM discussed availability of home health, rehab services, and medical equipment. Her daughter will be her van cdl driver home. Plan to resume [facility] upon discharge. Daughter is refusing at this time to return to inpatient rehab. Patient's daughter denied known discharge needs at this time. CM will continue to follow and will assist as needed with dc plans/needs. Civil Engineering Draftsperson: Bailey Joel DCPIA - Discharge Planning Initial Assessment Updated by [email or web address]: Bailey Joel on 02/26/19 11:58 pm * Is the patient Alert and Oriented? No * How many steps to enter\exit or inside your home? ramp * PCP JAZ PEREZ * [facility]acy [facility] * Preadmission Environment Home with Family * ADLs Partial Dependent * Partial ADLs (Assistance needed) Ambulation Bathing Dressing Eating Medication Management Toileting Transfers * Other Equipment OMARI BSC, WALKER, SHOWER W BARS, LIFT CHAIR * List name and contact numbers for known caregivers / representatives who currently or will assist patient after discharge: SHANI ADAN - DAUGHTER- [phone] * Verbal permission to speak to the caregivers and representatives has been obtained from the patient. N/A * Community resources currently utilized Home Health * Please name any agencies selected above. [facility] * Additional services required to return to the preadmission environment? No * Can the patient safely return to the preadmission environment? Yes * Has this patient been hospitalized within the prior 30 days at any hospital? Yes Last DP export: 02/26/19 11:10 Patient Name: INDIRA ADAN Page [id number] at 2014 All edits/amendments must be made on the electronic document DICTATION DATE: 03/05/192012 SUPPLY ROOM CLERK: BAL 03/05/192012 RPT#: [id number] DC DATE: STATUS: ADM IN [facility] [address] [place] [address] END OF REPORT
--- NOTE | 2019-03-05 21:00 | NUR ---
DRESSING TO R IJ CHANGED USING STERILE TECHNIQUE. OLD DRESSING WAS COMING OFF. VSS. PATIENT TURNED VIA BED. ONE BM AT START OF SHIFT.
--- NOTE | 2019-03-05 23:00 | NUR ---
RE-ASSESSMENT COMPLETED. NO CHANGES SINCE LAST ASSESSMENT. VSS.
[2019-03-06] VITALS (78 sets, daily range): BP systolic 84–137; BP diastolic 45–87
--- NOTE | 2019-03-06 01:00 | NUR ---
LAYING IN BED. NO CHANGES TO IV FLUIDS, TUBE FEEDING, OR VENT SETTINGS. PATIENT TURNED.
--- NOTE | 2019-03-06 03:00 | NUR ---
RE-ASSESSMENT COMPLETED. PATIENT TURNED. NO CHANGES SINCE LAST ASSESSMENT. CHG COMPLETED WITH COMPLETE LINEN CHANGE. VSS. STAT LOCK FOR F/C CHANGED D/T COMING OFF.
--- NOTE | 2019-03-06 05:02 | NUR ---
VSS. PATIENT TURNED. NO SIGNS OF DISCOMFORT
[2019-03-06 05:58] LABS: APTT 35.2 SECONDS (22.8-39.4); INR 1.96 (0.85-1.17); PROTIME 21.7 SECONDS (11.6-15.0)
[2019-03-06 06:09] LABS: ALBUMIN 3.1 g/dL (3.4-5.0); ANION GAP 17.7 mmol/L (8-16); BILIRUBIN - TOTAL 3.46 mg/dL (0.2-1.3); CALCIUM 8.7 mg/dL (8.5-10.1); CARBON DIOXIDE 23.6 mmol/L (21.0-32.0); CREATININE - SERUM 3.1 mg/dL (0.6-1.3); MAGNESIUM - SERUM 2.2 mg/dL (1.8-2.4); PHOSPHOROUS 4.5 mg/dL (2.5-4.9); POTASSIUM - SERUM 3.3 mmol/L (3.5-5.1); VANCOMYCIN - RANDOM 18.9 ug/mL (10.0-20.0)
--- NOTE | 2019-03-06 06:34 | NUR ---
PATIENT BP 84/45, HR 71, MAP 54. STARTED LEVOPHED AT 5 MCG/MIN AT 0625. AT 0630 BP 89/50, HR 69, MAP 64 SO INCREASED LEVOPHED BY 1 MCG/MIN TO EQUAL A DOSE OF 6 MCG/MIN.
[2019-03-06 06:37] LABS: BASOPHILS 0.1 % (0-2); EOSINOPHILS 0.2 % (0-7); HEMATOCRIT 25.1 % (36.0-48.0); HEMOGLOBIN 8.2 g/dL (12-16); IMMATURE GRANULOCYTES 1.3 % (0-5); LYMPHOCYTES 5.9 % (15-50); MCH 29.1 pg (26.0-34.0); MCHC 32.7 g/dL (31.0-37.0); MONOCYTES 4.6 % (2-11); NEUTROPHILS 87.9 % (40-80); RBC 2.82 10x6/uL (4.00-5.40); RDW 19.4 % (11.5-14.5)
[2019-03-06 06:49] LABS: PLATELET COUNT 37 10x3/uL (130-400); WBC 10.3 10x3/uL (4.8-10.8)
--- NOTE | 2019-03-06 07:06 | NUR ---
CRITICAL LAB OF PLT 37. SPOKE WITH DR. MARTIN. NEW ORDER FOR 1 UNIT OF PLT AND 1 UNIT OF PRBC WITH DIALYSIS. READ BACK AND VERIFIED.
--- NOTE | 2019-03-06 08:23 | NUR ---
Nutrition follow-up: Pt remains intubated, sedated Nepro @ goal rate of 50 ml/hr Labs reviewed Wt: 375# Pt tolerating TF at goal. ANJELICA [place].
[2019-03-06 09:20] LABS: PLATELET ESTIMATE DECREASED
[2019-03-06 09:21] LABS: ANISOCYTOSIS OCC; ROULEAUX OCC
--- NOTE | 2019-03-06 09:45 | NUR ---
family called for update. update given when password was given. will continue to monitor.
--- NOTE | 2019-03-06 11:30 | NUR ---
unit blood infusing with dialysis. dialysis nurse at bedside.
--- NOTE | 2019-03-06 13:31 | NUR ---
SPOKE WITH DR DODSON ABOUT TRACH AND PEG. STATED HE DOESN;T KNOW YET IF THEY ARE GOING TO DO IT HERE OR WAIT. STATED POSSIBLE CPAP TRIALS TO DETERMINE WHERE THEY WILL BE DOING IT
--- NOTE | 2019-03-06 16:29 | NUR ---
family at bedside. asked many questions. all answered. family aware of possibel trach and peg. family stated that is what they want
--- NOTE | 2019-03-06 18:43 | NUR ---
LINEN CHANGE DONE AND CHG BATH. BM AT THIS TIME
--- NOTE | 2019-03-06 19:00 | NUR ---
ASSESSMENT COMPLETED. VSS. TURNED VIA BED. ETT: 40%, PEEP 7, VOLUME 500, RESP 24. SIZE 8 AT 24 CM. NEPRO AT 50ML/HR WITH 10 ML FLUSH EVERY HOUR VIA OGT. RESIDUAL 1 ML AND CHECK PATENCY.
--- NOTE | 2019-03-06 21:00 | NUR ---
VSS. NO CHANGES TO PATIENT OR POC
--- NOTE | 2019-03-06 22:00 | NUR ---
LEVOPHED STOPPED AND STILL MONITORING VS. VSS AT THIS TIME
--- NOTE | 2019-03-06 23:00 | NUR ---
RE-ASSESSMENT COMPLETED. VSS. NO CHANGES SINCE LAST ASSESSMENT
[2019-03-07] VITALS (24 sets, daily range): BP systolic 88–114; BP diastolic 44–67
--- NOTE | 2019-03-07 01:00 | NUR ---
VSS. PT TURNED VIA BED. NO CHANGES TO PATIENT
--- NOTE | 2019-03-07 03:00 | NUR ---
ATTEMPTED SEDATION VACATION WITHOUT SUCCESS.
[2019-03-07 04:14] LABS: BASOPHILS 0 % (0-2); EOSINOPHILS 0.4 % (0-7); HEMATOCRIT 26.6 % (36.0-48.0); HEMOGLOBIN 8.7 g/dL (12-16); LYMPHOCYTES 5.6 % (15-50); MCH 29.4 pg (26.0-34.0); MCHC 32.7 g/dL (31.0-37.0); MCV 89.9 fL (80.0-100.0); MEAN PLATELET VOLUME 11.1 fL (7.4-10.4); MONOCYTES 5.3 % (2-11); NEUTROPHILS 87.7 % (40-80); RBC 2.96 10x6/uL (4.00-5.40); RDW 19.7 % (11.5-14.5); WBC 10.2 10x3/uL (4.8-10.8)
[2019-03-07 04:25] LABS: ANION GAP 15.7 mmol/L (8-16); CALCIUM 8.8 mg/dL (8.5-10.1); CARBON DIOXIDE 26.2 mmol/L (21.0-32.0); CREATININE - SERUM 2.9 mg/dL (0.6-1.3); POTASSIUM - SERUM 3.9 mmol/L (3.5-5.1)
[2019-03-07 04:36] LABS: PLATELET COUNT 61 10x3/uL (130-400)
--- NOTE | 2019-03-07 05:00 | NUR ---
NO CHANGES. STILL OFF LEVOPHED. TUBE FEEDING, PROPOFOL IV, AND VENT SETTINGS STILL THE SAME. TURNING PT VIA BED TURN
--- NOTE | 2019-03-07 07:00 | NUR ---
BEDSIDE REPORT RECEIVED. SHIFT ASSESSMENT COMPLETED PER FLOWSHEET, SEE FLOWSHEET FOR INFORMATION. PT RESTING IN BED WITH EYES CLOSED, NO ACUTE NEEDS OR DISTRESS NOTED AT THIS TIME. VSS. WILL CONT TO MONITOR.
--- NOTE | 2019-03-07 09:00 | NUR ---
ORAL CARE GIVEN. ORAL AND ENDOTRACHEAL INLINE SUCTIONING OMPLETED. TURNED PT FOR COMFORT. NO ACUTE NEEDS OR DISTRESS NOTED AT THIS TIME. VSS. WILL CONT TO MONITOR.
--- NOTE | 2019-03-07 11:00 | NUR ---
REASSESSMENT COMPLETED PER FLOWSHEET, SEE FLOWSHEET FOR INFORMATION. ORAL CARE GIVEN, ORAL AND INLINE SUTIONING COMPLETED. VSS. WILL CONT TO MONITOR.
--- NOTE | 2019-03-07 13:00 | NUR ---
FAMILY AND DIALYSIS AT BEDSIDE. GONZÁLEZ FINISHED STOCK INSPECTOR SPOKE WITH FAMILY ABOUT [facility], FAMILY AGREED PT NEEDS TO GO TO [facility]. VSS. WILL CONT TO MONITOR.
--- NOTE | 2019-03-07 15:00 | NUR ---
REASSESSMENT COMPLETED PER FLOWSHEET, SEE FLOWSHEET FOR INFORMATION. DIALYSIS AT BEDSIDE, NO ACUTE NEEDS OR DISTRESS NOTED AT THIS TIME. WILL CONT TO MONITOR.
--- NOTE | 2019-03-07 17:00 | NUR ---
ORAL CARE GIVEN, ORAL AND INLINE SUCTIONING COMPLETED. PT RESTING IN BED WITH EYES CLOSED. WILL CONT TO MONITOR.
--- NOTE | 2019-03-07 19:00 | NUR ---
SHIFT ASSESSMENT COMPLETE. VS STABLE. NO VISUAL CUES OF DISTRESS NOTED. WILL CONTINUE TO MONITOR.
--- NOTE | 2019-03-07 21:00 | NUR ---
VS STABLE. WILL CONTINUE TO MONITOR.
--- NOTE | 2019-03-07 22:13 | MORECARE ---
CASE MANAGEMENT DISCHARGE SUMMARY PATIENT: INDIRA ADAN UNIT: [id number] ADM DATE: 02/24/19 AGE: 73 : 44 SEX: F ROOM/BED: D.2310 AUTHOR: AJITH,DOC PHYSICIAN: REFERRING PHYSICIAN: ALLA MUNGUIA MD DATE OF SERVICE: 03/07/19 Discharge Plan Patient Name: INDIRA ADAN Facility: [facility]:[place] : 1945 Planned Disposition: Anticipated Discharge Date: Discharge Date: Expected LOS: Initial Reviewer: [email or web address] Initial Review Date: 02/25/2019 Generated: 03/07/19 11:13 pm Comments DCP- Discharge Planning Updated by [email or web address]: Bailey Joel on 03/07/19 9:[address] CM spoke with daughter NASEEM regarding LTACH. LAMINE signed for [facility] in [place]. Daughter would like for patient to stay here as long as possible. Requesting for trach and PEG be placed while patient is at [facility] if possible. CM will continue to follow and assist as needed with discharge planning needs. DCP- Discharge Planning Updated by [id number]: Bailey Joel on 03/05/19 7:[address] CM notified Radha Carr - Dialysis Coordinator with [facility] regarding patient and potential need for hemodialysis post acute care. Family spoke with Dr. Khan today and they will consent to trach and PEG possibly later this week. CM will continue to follow and assist as needed with discharge planning / needs DCP- Discharge Planning Updated by [id number]: Bailey Joel on 02/26/19 11:[address] LATE ENTRY 02/25/19 Patient Name: INDIRA ADAN Admission Status: Elective Accout number: [id number] Admission Date: 02-24-2019 : 1945 Admission Diagnosis: Attending: ALLA MUNGUIA Current LOS: 3 Anticipated DC Date: Planned Disposition: Primary Insurance: MEDICARE PART A ONLY Discharge Planning Comments: CM met with patient's daughter Shani to complete initial dc planning assessment. Patient is currently on vent sedated. CM educated patient on the CM role and verbal consent given by patient to complete assessment. Patient lives at home with her and daughter where she is partially dependent with her care. At discharge patient plans to return home and feels this is a safe discharge. CM discussed availability of home health, rehab services, and medical equipment. Her daughter will be her van driver home. Plan to resume [facility] upon discharge. Daughter is refusing at this time to return to inpatient rehab. Patient's daughter denied known discharge needs at this time. CM will continue to follow and will assist as needed with dc plans/needs. Cloth Weaver: Bailey Joel DCPIA - Discharge Planning Initial Assessment Updated by [email or web address]: Bailey Joel on 02/26/19 11:58 pm * Is the patient Alert and Oriented? No * How many steps to enter\exit or inside your home? ramp * PCP JAZ PEREZ * [facility]acy [facility] * Preadmission Environment Home with Family * ADLs Partial Dependent * Partial ADLs (Assistance needed) Ambulation Bathing Dressing Eating Medication Management Toileting Transfers * Other Equipment OMARI BSC, WALKER, SHOWER W BARS, LIFT CHAIR * List name and contact numbers for known caregivers / representatives who currently or will assist patient after discharge: SHANI ADAN - DAUGHTER- [phone] * Verbal permission to speak to the caregivers and representatives has been obtained from the patient. N/A * Community resources currently utilized Home Health * Please name any agencies selected above. [facility] * Additional services required to return to the preadmission environment? No * Can the patient safely return to the preadmission environment? Yes * Has this patient been hospitalized within the prior 30 days at any hospital? Yes Last DP export: 03/05/19 7:14 Patient Name: INDIRA ADAN Page [phone] at 2213 All edits/amendments must be made on the electronic document DICTATION DATE: 03/07/192212 TANK CAR MECHANIC: BAL 03/07/192212 RPT#: [id number] DC DATE: STATUS: ADM IN [facility] [address] [place] [address] END OF REPORT
--- NOTE | 2019-03-07 23:00 | NUR ---
VS STABLE. WILL CONTINUE TO MONITOR.
[2019-03-08] VITALS (24 sets, daily range): BP systolic 105–141; BP diastolic 50–84
--- NOTE | 2019-03-08 01:00 | NUR ---
VS STABLE. WILL CONTINUE TO MONITOR.
--- NOTE | 2019-03-08 03:00 | NUR ---
VS STABLE. WILL CONTINUE TO MONITOR.
--- NOTE | 2019-03-08 05:00 | NUR ---
VS STABLE. WILL CONTINUE TO MONITOR.
[2019-03-08 05:07] LABS: BASOPHILS 0 % (0-2); EOSINOPHILS 0.8 % (0-7); HEMATOCRIT 26.8 % (36.0-48.0); HEMOGLOBIN 8.7 g/dL (12-16); LYMPHOCYTES 5.4 % (15-50); MCH 29.6 pg (26.0-34.0); MCHC 32.5 g/dL (31.0-37.0); MCV 91.2 fL (80.0-100.0); MEAN PLATELET VOLUME 10.6 fL (7.4-10.4); MONOCYTES 4.9 % (2-11); NEUTROPHILS 87.9 % (40-80); PLATELET COUNT 64 10x3/uL (130-400); RBC 2.94 10x6/uL (4.00-5.40); RDW 19.8 % (11.5-14.5); WBC 8.3 10x3/uL (4.8-10.8)
[2019-03-08 05:33] LABS: ALBUMIN 3.5 g/dL (3.4-5.0); ANION GAP 18.1 mmol/L (8-16); BILIRUBIN - TOTAL 3.66 mg/dL (0.2-1.3); CALCIUM 9.2 mg/dL (8.5-10.1); CARBON DIOXIDE 22.8 mmol/L (21.0-32.0); CREATININE - SERUM 3.6 mg/dL (0.6-1.3); POTASSIUM - SERUM 3.9 mmol/L (3.5-5.1); PROTEIN - SERUM 6.5 g/dL (6.4-8.2)
--- NOTE | 2019-03-08 06:29 | NUR ---
VS STABLE. WILL CONTINUE TO MONITOR.
--- NOTE | 2019-03-08 07:00 | NUR ---
RECEIVED BEDSIDE REPORT ON PATIENT AND ASSUMED CARE. PATIENT SEDATED ON VENT, HR - A-FIB CONTROLLED RATE 70-80S, BBS DIMINISHED, SPO2 - 100%, VENT SETTINGS ARE SIMV AT 24, TV 500 PEEP 7 FIO2 40%. OGT WITH NEPRO AT 50 CC/HR WITH 10 CC WATER FLUSHES/HR, PLACEMENT CHECKED BY ASCULTATION, RESIDUAL 15 CC. PATIENT WITH PITTING +3 EDEMA TO EXTREMITIES. DOVER CATH IN PLACE WITH MINIMAL CONCENTRATED DARK MARIA TERESA UOP. ETT 8.0 AT 24 CM. VSS. HEAD TO TOE ASSESSMENT COMPLETED.
[2019-03-08 07:03] LABS: APTT 34.6 SECONDS (22.8-39.4); INR 1.82 (0.85-1.17); PROTIME 20.5 SECONDS (11.6-15.0)
--- NOTE | 2019-03-08 09:00 | NUR ---
PATIENT TURNED AND REPOSITIONED IN BED. VSS. MEDS GIVEN PER MAR.
--- NOTE | 2019-03-08 09:20 | NUR ---
SPOKE TO PATIENTS DAUGHTER VIA PHONE, PASSWORD RECEIVED. UPDATED AND QUESTIONS ANSWERED.
--- NOTE | 2019-03-08 11:00 | NUR ---
REASSESSMENT COMPLETED. VSS. TURNED AND REPOSTIONED IN BED.
--- NOTE | 2019-03-08 11:08 | NUR ---
Nutrition follow-up: Pt remains intubated, sedated; pressors off Nepro infusing @ 50 ml/hr and pt is tolerating Labs reviewed Daily HD RDN following.
--- NOTE | 2019-03-08 12:21 | NUR ---
DR. MALCOLM AND DR. DODSON AT ROOM, UPDATED AND EXAMINES PATIENT.
--- NOTE | 2019-03-08 12:23 | NUR ---
PATIENT ON CPAP TRIAL, SEDATION STOPPED FOR CPAP TRAIL.
--- NOTE | 2019-03-08 12:34 | NUR ---
PROPOFOL BOTTLE AND TUBING CHANGED, TUBE FEEDING TUBING AND FEEDING CHANGED. VSS.
--- NOTE | 2019-03-08 12:43 | MORECARE ---
CASE MANAGEMENT DISCHARGE SUMMARY PATIENT: INDIRA ADAN UNIT: [id number] ADM DATE: 02/24/19 AGE: 73 : 44 SEX: F ROOM/BED: D.2310 AUTHOR: AJITH,DOC PHYSICIAN: REFERRING PHYSICIAN: ALLA MUNGUIA MD DATE OF SERVICE: 03/08/19 Discharge Plan Patient Name: INDIRA ADAN Facility: [facility]:[place] : 1945 Planned Disposition: Anticipated Discharge Date: Discharge Date: Expected LOS: Initial Reviewer: [email or web address] Initial Review Date: 02/25/2019 Generated: 03/08/19 1:43 pm Comments DCP- Discharge Planning Updated by [email or web address]: Bailey Joel on 03/07/19 9:[address] CM spoke with daughter NASEEM regarding LTACH. LAMINE signed for [facility] in [place]. Daughter would like for patient to stay here as long as possible. Requesting for trach and PEG be placed while patient is at [facility] if possible. CM will continue to follow and assist as needed with discharge planning needs. DCP- Discharge Planning Updated by [email or web address]: Bailey Joel on 03/05/19 7:[address] CM notified Radha Carr - Dialysis Coordinator with [facility] regarding patient and potential need for hemodialysis post acute care. Family spoke with Dr. Khan today and they will consent to trach and PEG possibly later this week. CM will continue to follow and assist as needed with discharge planning / needs DCP- Discharge Planning Updated by [email or web address]: Bailey Joel on 02/26/19 11:[address] LATE ENTRY 02/25/19 Patient Name: INDIRA ADAN Admission Status: Elective Accout number: [id number] Admission Date: 02-24-2019 : 1945 Admission Diagnosis: Attending: ALLA MUNGUIA Current LOS: 3 Anticipated DC Date: Planned Disposition: Primary Insurance: MEDICARE PART A ONLY Discharge Planning Comments: CM met with patient's daughter Shani to complete initial dc planning assessment. Patient is currently on vent sedated. CM educated patient on the CM role and verbal consent given by patient to complete assessment. Patient lives at home with her and daughter where she is partially dependent with her care. At discharge patient plans to return home and feels this is a safe discharge. CM discussed availability of home health, rehab services, and medical equipment. Her daughter will be her pick up and delivery driver home. Plan to resume [facility] upon discharge. Daughter is refusing at this time to return to inpatient rehab. Patient's daughter denied known discharge needs at this time. CM will continue to follow and will assist as needed with dc plans/needs. Repairer Veneer Sheet: Bailey Joel DCPIA - Discharge Planning Initial Assessment Updated by [email or web address]: Bailey Joel on 02/26/19 11:58 pm * Is the patient Alert and Oriented? No * How many steps to enter\exit or inside your home? ramp * PCP JAZ PEREZ * [facility] * Preadmission Environment Home with Family * ADLs Partial Dependent * Partial ADLs (Assistance needed) Ambulation Bathing Dressing Eating Medication Management Toileting Transfers * Other Equipment OMARI BSC, WALKER, SHOWER W BARS, LIFT CHAIR * List name and contact numbers for known caregivers / representatives who currently or will assist patient after discharge: SHANI ADAN - DAUGHTER- [phone] * Verbal permission to speak to the caregivers and representatives has been obtained from the patient. N/A * Community resources currently utilized Home Health * Please name any agencies selected above. [facility] * Additional services required to return to the preadmission environment? No * Can the patient safely return to the preadmission environment? Yes * Has this patient been hospitalized within the prior 30 days at any hospital? Yes External Providers External Provider: Jonas Ord[facility] Next Contact Date: Service Request Date: Service Type: Resolution: Reviewer: Comments: Last DP export: 03/07/19 9:13 Patient Name: INDIRA ADAN Page [phone] at 1243 All edits/amendments must be made on the electronic document DICTATION DATE: 03/08/19 124 TRUCK LOADER: BAL 03/08/19 1243 RPT#: [id number] DC DATE: STATUS: ADM IN [facility] [address] [place] [address] END OF REPORT
--- NOTE | 2019-03-08 13:49 | NUR ---
PROPOFOL RESTARTED, PLACED BACK ON ASSIST CONTROL. TOLERATED CPAP TRAIL.
--- NOTE | 2019-03-08 15:00 | NUR ---
REASSESSMENT COMPLETED. VSS. HEMODIALYSIS ON GOING, TOLERATING WELL.
--- NOTE | 2019-03-08 16:23 | NUR ---
PATIENTS DAUGHTER AND AT ROOM UPDATED AND QUESTIONS ANSWERED.
--- NOTE | 2019-03-08 17:16 | NUR ---
DIALYSIS COMPLETE TOLERATED WELL, 3 L REMOVED.
--- NOTE | 2019-03-08 17:31 | MORECARE ---
CASE MANAGEMENT DISCHARGE SUMMARY PATIENT: INDIRA ADAN UNIT: [id number] ADM DATE: 02/24/19 AGE: 73 : 44 SEX: F ROOM/BED: D.2310 AUTHOR: AJITH,DOC PHYSICIAN: REFERRING PHYSICIAN: ALLA MUNGUIA MD DATE OF SERVICE: 03/08/19 Discharge Plan Patient Name: INDIRA ADAN Facility: [facility]:[place] : 1945 Planned Disposition: Anticipated Discharge Date: Discharge Date: Expected LOS: Initial Reviewer: [email or web address] Initial Review Date: 02/25/2019 Generated: 03/08/19 6:30 pm Comments DCP- Discharge Planning Updated by [email or web address]: Bailey Joel on 03/08/19 4:[address] CM spoke with Radha at [facility]. Radha stated that they could take patient without trach and PEG. Possibly admit patient on Monday. CM faxed records for eval. CM notified Dr. Khan. CM will continue to follow and assist as needed with discharge planning / needs. DCP- Discharge Planning Updated by [email or web address]: Bailey Joel on 03/07/19 9:[address] CM spoke with daughter NASEEM regarding LTACH. LAMINE signed for [facility] in [place]. Daughter would like for patient to stay here as long as possible. Requesting for trach and PEG be placed while patient is at [facility] if possible. CM will continue to follow and assist as needed with discharge planning needs. DCP- Discharge Planning Updated by [email or web address]: Bailey Joel on 03/05/19 7:[address] CM notified Radha Carr - Dialysis Coordinator with [facility] regarding patient and potential need for hemodialysis post acute care. Family spoke with Dr. Khan today and they will consent to trach and PEG possibly later this week. CM will continue to follow and assist as needed with discharge planning / needs DCP- Discharge Planning Updated by [email or web address]: Bailey Joel on 02/26/19 11:[address] LATE ENTRY 02/25/19 Patient Name: INDIRA ADAN Admission Status: Elective Accout number: [id number] Admission Date: 02-24-2019 : 1945 Admission Diagnosis: Attending: ALLA MUNGUIA Current LOS: 3 Anticipated DC Date: Planned Disposition: Primary Insurance: MEDICARE PART A ONLY Discharge Planning Comments: CM met with patient's daughter Shani to complete initial dc planning assessment. Patient is currently on vent sedated. CM educated patient on the CM role and verbal consent given by patient to complete assessment. Patient lives at home with her and daughter where she is partially dependent with her care. At discharge patient plans to return home and feels this is a safe discharge. CM discussed availability of home health, rehab services, and medical equipment. Her daughter will be her dinkey driver home. Plan to resume [facility] upon discharge. Daughter is refusing at this time to return to inpatient rehab. Patient's daughter denied known discharge needs at this time. CM will continue to follow and will assist as needed with dc plans/needs. Activity Therapy Specialist: Bailey Joel DCPIA - Discharge Planning Initial Assessment Updated by [email or web address]: Bailey Joel on 02/26/19 11:58 pm * Is the patient Alert and Oriented? No * How many steps to enter\exit or inside your home? ramp * PCP JAZ PEREZ * [facility]acy [facility] * Preadmission Environment Home with Family * ADLs Partial Dependent * Partial ADLs (Assistance needed) Ambulation Bathing Dressing Eating Medication Management Toileting Transfers * Other Equipment OMARI BSC, WALKER, SHOWER W BARS, LIFT CHAIR * List name and contact numbers for known caregivers / representatives who currently or will assist patient after discharge: SHANI ADAN - DAUGHTER- [phone] * Verbal permission to speak to the caregivers and representatives has been obtained from the patient. N/A * Community resources currently utilized Home Health * Please name any agencies selected above. [facility] * Additional services required to return to the preadmission environment? No * Can the patient safely return to the preadmission environment? Yes * Has this patient been hospitalized within the prior 30 days at any hospital? Yes Last DP export: 03/08/19 11:43 Patient Name: INDIRA ADAN Page [phone] at 1731 All edits/amendments must be made on the electronic document DICTATION DATE: 03/08/191729 HELMINTHOLOGIST: DM 03/08/191729 RPT#: [id number] DC DATE: STATUS: ADM IN [facility] [address] [place] [address] END OF REPORT
--- NOTE | 2019-03-08 19:00 | NUR ---
REPORT RECEIVED. RECEIVED PATIENT IN BED , SEDATED/INTUBATED. ETT INTACT/SECURE/PATENT CONNECTED TO [facility] VENT WITH SETTINGS ORDERED. HOB UP 30 DEGREES. OGT INTACT/SECURE/PATENT WITH TUBE FEEDING INFUSING ORDERED. ASSESSMENT COMPLETED PER FLOW SHEET WITH NO DISTRESS OBSERVED. MONITORS CONNECTED TO PATIENT WITH ALARMS SET. VSS
--- NOTE | 2019-03-08 20:30 | NUR ---
SPOKE WITH PATIENTS DAUGHTER VIA PHONE. UPDATE GIVEN, QUESTIONS ANSWERED.
--- NOTE | 2019-03-08 21:00 | NUR ---
VSS. NO ACUTE DISTRESS OBSERVED.
--- NOTE | 2019-03-08 23:00 | NUR ---
REASSESSMENT COMPLETED PER FLOW SHEET NO DISTRESS OBSERVED. VSS
[2019-03-09] VITALS (24 sets, daily range): BP systolic 104–132; BP diastolic 48–90
--- NOTE | 2019-03-09 01:00 | NUR ---
REPOSITIONED. ORAL CARE GIVE. HOB UP 30 DEGREES. ETT/OGT INTACT/SECURE AND PATENT. VSS
--- NOTE | 2019-03-09 03:00 | NUR ---
REPOSITIONED. ORAL CARE PERFORMED.VSS. HOB ELEVATED 30 DEGREES. ETT/OGT INTACT/SECURE AND PATENT.
--- NOTE | 2019-03-09 05:00 | NUR ---
ORAL CARE GIVEN. CHG BATH GIVEN, LINENS CHANGED. REPOSITIONED. HOB 30 DEGREES. VSS
[2019-03-09 06:21] LABS: BASOPHILS 0 % (0-2); EOSINOPHILS 0.8 % (0-7); HEMATOCRIT 26.3 % (36.0-48.0); HEMOGLOBIN 8.5 g/dL (12-16); IMMATURE GRANULOCYTES 0.5 % (0-5); MCH 29.6 pg (26.0-34.0); MCHC 32.3 g/dL (31.0-37.0); MCV 91.6 fL (80.0-100.0); MONOCYTES 6.1 % (2-11); NEUTROPHILS 88.6 % (40-80); PLATELET COUNT 70 10x3/uL (130-400); RBC 2.87 10x6/uL (4.00-5.40); RDW 20.3 % (11.5-14.5); WBC 7.8 10x3/uL (4.8-10.8)
[2019-03-09 06:32] LABS: ALBUMIN 3.4 g/dL (3.4-5.0); ANION GAP 17.9 mmol/L (8-16); BILIRUBIN - TOTAL 4.26 mg/dL (0.2-1.3); CALCIUM 8.8 mg/dL (8.5-10.1); CARBON DIOXIDE 24.5 mmol/L (21.0-32.0); CREATININE - SERUM 2.9 mg/dL (0.6-1.3); POTASSIUM - SERUM 3.4 mmol/L (3.5-5.1); PROTEIN - SERUM 6.3 g/dL (6.4-8.2)
--- NOTE | 2019-03-09 07:00 | NUR ---
RECEIVED BEDSIDE REPOORT ON PATIENT AND ASSUMED CARE. PATIENT RESTING QUIETLY ON VENT, SEDATED, PROPOFOL INFUSING VIA RIGHT IJ TRIALYSIS CATH AT 10 MCG/KG/MIN. VENT SETTINGS A/C 20, TV 600, PEEP 7 AND FIO2 40%, SPO2 93%. HR - 77, IRREGULAR, A-FIB CONTROLLED ON CM, BBS - COURSE, SUCTIONED YELLOW SPUTUM. PATIENT TURNED AND REPOSITIONED IN BED. HEAD TO TOE ASSESSMENT COMPLETED.
[2019-03-09 08:10] LABS: PLATELET ESTIMATE DECREASED; PLATELET MORPHOLOGY NORMAL PLT MORPH
--- NOTE | 2019-03-09 08:15 | NUR ---
PATIENT DESATING TO LOW 70%, 100% O2 GIVEN, PATIENT SUCTIONED AND RT NOTIFIED, O2 INCREASED TO 95%.
--- NOTE | 2019-03-09 08:36 | NUR ---
MORNING MEDS GIVEN PER JUN. VSS. PATIENT TURNED AND REPOSITIONED IN BED. PROPOFOL DECREASED TO 5 MCG/KG/MIN FOR CPAP TRIAL LATER.
--- NOTE | 2019-03-09 09:21 | NUR ---
PATIENT PLACED ON CPAP TRIAL PER RT, PROPOFOL GTT STOPPED FOR THE TRAIL.
--- NOTE | 2019-03-09 11:00 | NUR ---
REASSESSMENT COMPLETE. VSS. PATIENT TOLERATING CPAP TRIAL, ON SIMV, SPO2 93%.
--- NOTE | 2019-03-09 12:01 | NUR ---
DR. DODSON AT ROOM UPDATED AND EXAMINES PATIENT.
--- NOTE | 2019-03-09 13:20 | NUR ---
PATIENTS DAUGHTER AND AT ROOM UPDATED AND QUESTIONS ANSWERED. DR. ANDERSON AT ROOM UPDATED AND EXAMINES PATIENT. SPEAKS WITH PATIENTS FAMILY AND ANSWERS QUESTIONS.
--- NOTE | 2019-03-09 14:24 | NUR ---
PATIENT TURNED AND REPOSITIONED. VSS.
--- NOTE | 2019-03-09 15:00 | NUR ---
REASSESSMENT COMPLETE. VSS. PATIENT BACK ON A/C TOLERATED CPAP TRAIL WELL. TURNED AND REPOSITIONED IN BED. TUBE FEEDING AND TUBING CHANGED.
--- NOTE | 2019-03-09 16:05 | NUR ---
PATIENT RESTING QUIETLY, VSS. DIALYSIS NURSE AT ROOM FOR HEMODIALYSIS.
--- NOTE | 2019-03-09 17:35 | NUR ---
PATIENT TURNED AND REPOSITIONED. DIALYSIS ONGOING, TOLERATING WELL, VSS.
--- NOTE | 2019-03-09 19:00 | NUR ---
SHIFT ASSESSMENT COMPLETE. VS STABLE. NO VISUAL CUES OF DISTRESS NOTED. WILL CONTINUE TO MONITOR.
--- NOTE | 2019-03-09 21:00 | NUR ---
VS STABLE. NO VISUAL CUES OF DISTRESS NOTED. WILL MONITOR.
--- NOTE | 2019-03-09 21:00 | NUR ---
VS STABLE. NO VISUAL CUES OF DISTRESS NOTED. WILL MONITOR.
--- NOTE | 2019-03-09 22:00 | NUR ---
VS STABLE. NO VISUAL CUES OF DISTRESS NOTED. WILL MONITOR.
--- NOTE | 2019-03-09 23:00 | NUR ---
VVS STABLE. NO VISUAL CUES OF DISTRESS NOTED. WILL MONITOR.
[2019-03-10] VITALS (24 sets, daily range): BP systolic 101–137; BP diastolic 46–84
--- NOTE | 2019-03-10 | NUR ---
VS STABLE. NO VISUAL CUES OF DISTRESS NOTED. WILL MONITOR.
[2019-03-10 05:50] LABS: ALBUMIN 3.6 g/dL (3.4-5.0); ANION GAP 16.4 mmol/L (8-16); BILIRUBIN - TOTAL 5.53 mg/dL (0.2-1.3); CALCIUM 9.2 mg/dL (8.5-10.1); CARBON DIOXIDE 24.2 mmol/L (21.0-32.0); CREATININE - SERUM 2.5 mg/dL (0.6-1.3); POTASSIUM - SERUM 3.6 mmol/L (3.5-5.1); PROTEIN - SERUM 6.6 g/dL (6.4-8.2)
[2019-03-10 05:53] LABS: BASOPHILS 0 % (0-2); EOSINOPHILS 0.1 % (0-7); HEMOGLOBIN 8.4 g/dL (12-16); IMMATURE GRANULOCYTES 0.5 % (0-5); LYMPHOCYTES 2.9 % (15-50); MCH 29.7 pg (26.0-34.0); MCHC 32.3 g/dL (31.0-37.0); MCV 91.9 fL (80.0-100.0); MEAN PLATELET VOLUME 11.1 fL (7.4-10.4); MONOCYTES 8.4 % (2-11); NEUTROPHILS 88.1 % (40-80); PLATELET COUNT 90 10x3/uL (130-400); RBC 2.83 10x6/uL (4.00-5.40); RDW 20.9 % (11.5-14.5); WBC 10.1 10x3/uL (4.8-10.8)
--- NOTE | 2019-03-10 06:45 | NUR ---
VS STABLE. NO VISUAL CUES OF DISTRESS NOTED. WILL MONITOR.
--- NOTE | 2019-03-10 07:15 | NUR ---
REPORT RECEIVED. PT ON VENT. SEDATION OFF. PT HAS OGT AND IS GETTING CONTINUOUS TUBE FEEDS OF NEPRO VANILLA AT 50ML/HR WHICH IS GOAL, WITH A FLUSH OF 10ML/HR. PT IS ON [facility] BED. HEAD TO TOE ASSESSMENT COMPLETED. VSS. WILL CONTINUE TO MONITOR.
--- NOTE | 2019-03-10 09:38 | NUR ---
NEPRO ADDED TO TUBE FEEDING BAG. WILL CHANGE OUT BAGS WHEN 24 HRS HITS. VSS. PT REPOSITIONED. FAMILY CALLED AND UPDATED. WILL CONTINUE TO MONITOR.
--- NOTE | 2019-03-10 11:30 | NUR ---
PT SEDATED. PT STILL IN UNCONTROLLED AFIB. DOCTORS AWARE. PT RUNNING LOW GRADE TEMP OF 100.8. WILL CONTINUE TO MONITOR.
--- NOTE | 2019-03-10 13:30 | NUR ---
NO CHANGES. VSS.
--- NOTE | 2019-03-10 15:45 | NUR ---
TUBE FEED BAGS CHANGED OUT. PT REPOSITIONED AND SUCTIONED. WILL CONTINUE TO MONITOR.
--- NOTE | 2019-03-10 17:47 | NUR ---
PT WASHED UP AND REPOSITIONED. VSS. WILL CONTINUE TO MONITOR.
--- NOTE | 2019-03-10 19:00 | NUR ---
REPORT RECEIVED. RECEIVED PATIENT IN BED, SEDATED/INTUBATED. HOB UP 30 DEGREES. ETT INTACT/SECURE/PATENT CONNECTED TO [facility] VENT WITH SETTINGS ORDERED. OGT INTACT/SECURE/PATENT WITH TUBE FEEDING INFUSING ORDERED. MONITORS CONNECTED TO PATIENT WITH ALARMS SET. VSS. ASSESSMENT COMPLETED PER FLOW SHEET WITH NO ACUTE DISTRESS OBSERVED.
--- NOTE | 2019-03-10 20:30 | NUR ---
RECEIVED PHONE CALL FROM DAUGHTER RADHA. UPDATE GIVEN. QUESTIONS ANSWERED.
--- NOTE | 2019-03-10 21:00 | NUR ---
VSS. ETT/OGT INTACT/SECURE/PATENT. HOB UP 30 DEGREES.
--- NOTE | 2019-03-10 23:00 | NUR ---
REASSESSMENT COMPLETED PER FLOW SHEET WITH NO ACUTE DISTRESS OBSERVED. VSS. HOB UP 30 DEGREES. ETT/OGT INTACT/SECURE/PATENT.
[2019-03-11] VITALS (24 sets, daily range): BP systolic 101–127; BP diastolic 37–73
--- NOTE | 2019-03-11 01:00 | NUR ---
VSS. NO DISTRESS OBSERVED. ORAL CARE PERFORMED. TURNED AND REPOSITIONED.
--- NOTE | 2019-03-11 03:00 | NUR ---
ORAL CARE GIVEN. TURNED AND REPOSITIONED. REASSESSMENT COMPLETED PER FLOW SHEE WITH NO ACUTE DISTRESS OBSERVED. VSS
[2019-03-11 04:45] LABS: BASOPHILS 0 % (0-2); EOSINOPHILS 0.2 % (0-7); HEMATOCRIT 25.3 % (36.0-48.0); HEMOGLOBIN 8.2 g/dL (12-16); IMMATURE GRANULOCYTES 0.5 % (0-5); LYMPHOCYTES 4.2 % (15-50); MCHC 32.4 g/dL (31.0-37.0); MCV 92.7 fL (80.0-100.0); MONOCYTES 10.7 % (2-11); NEUTROPHILS 84.4 % (40-80); PLATELET COUNT 78 10x3/uL (130-400); RBC 2.73 10x6/uL (4.00-5.40); RDW 21.9 % (11.5-14.5); WBC 8.2 10x3/uL (4.8-10.8)
--- NOTE | 2019-03-11 05:00 | NUR ---
CHG BATH GIVEN WITH FULL LINEN CHANGE. VSS. ROSEMARIE WITHOUT DIFF. TURNED AND REPOSITIONED. HOB UP 30 DEGREES
[2019-03-11 05:10] LABS: ALBUMIN 3.6 g/dL (3.4-5.0); ANION GAP 18.7 mmol/L (8-16); BILIRUBIN - TOTAL 5.99 mg/dL (0.2-1.3); CALCIUM 8.9 mg/dL (8.5-10.1); CARBON DIOXIDE 23.9 mmol/L (21.0-32.0); CREATININE - SERUM 3.1 mg/dL (0.6-1.3); POTASSIUM - SERUM 3.6 mmol/L (3.5-5.1); PROTEIN - SERUM 6.3 g/dL (6.4-8.2)
[2019-03-11 05:14] LABS: APTT 34.7 SECONDS (22.8-39.4); INR 1.79 (0.85-1.17); PROTIME 20.2 SECONDS (11.6-15.0)
--- NOTE | 2019-03-11 07:20 | NUR ---
REPORT RECEIVED. PT RESTING QUIETLY WITH VSS. ON [facility] 2 BED. PT HAS DOVER WITH DARK URINE. RIGHT IJ WITH TRIALYSIS CATH WITH PROPOFOL INFUSING. PT VENTED AND HAS OGT. TUBE FEEDINGS ON HOLD PER PROCEDURE LATER TODAY. HEAD TO TOE ASSESSMENT DONE. WILL CONTINUE TO MONITOR.
--- NOTE | 2019-03-11 09:15 | NUR ---
BLOOD SUGAR FOR THIS MORNING 170. PT RESTING QUIETLY WITH VSS. FAMILY CALLED TO CHECK AND UPDATED. NO OTHER NEEDS AT THIS TIME. WILL CONTINUE TO MONITOR.
--- NOTE | 2019-03-11 09:26 | NUR ---
Nutrition follow-up: Remains intubated, sedated Nepro infusing @ 50 ml/hr via OGT Pt tolerating TF at goal rate Labs reviewed hemosplit placed today Wt: 359# Pt continues with volume overload per renal; daily dialysis RDN following.
--- NOTE | 2019-03-11 11:30 | NUR ---
PT RESTING QUIETLY. SUCTIONED AND REPOSITIONED. VSS. WILL CONTINUE TO MONITOR.
--- NOTE | 2019-03-11 13:24 | NUR ---
FAMILY AT BEDSIDE. UPDATED. AWARE THAT LTACH WILL PROBABLY BE TAKING THE PT TOMORROW. VSS. WILL CONTINUE TO MONITOR.
--- NOTE | 2019-03-11 13:55 | CN ---
PATIENT NAME:INDIRA ADAN MEDICAL RECORD: [id number] : 43 LOCATION:[id number] ADMIT DATE: 02/24/19 ACCOUNT: [id number] CONSULTING PHYSICIAN: AQUILINO MUNOZ MD REFERRING PHYSICIAN: ALLA FAIR MD DATE OF CONSULTATION: 02/24/2019 CONSULT REQUESTING PHYSICIAN: Dr. Alla Fair REASON FOR CONSULTATION: Acute hypoxic hypercapnic respiratory failure and acute mental status changes. HISTORY OF PRESENT ILLNESS: The patient is unresponsive. History was taken by reviewing the patient's note and talking to Dr. Fair. Ms. Adan is a 73-year-old female. She had recently a shoulder reversal surgery by ortho. The patient was in the rehabilitation. Since yesterday, the patient was hypoglycemic, episode this morning, rapid response was called. The patient was unresponsive. She was hypoglycemic. ABG showed she has metabolic as well as respiratory acidosis. The patient was transferred to the ICU and the patient is now on BiPAP. Chest radiograph showed bilateral infiltrate. REVIEW OF SYSTEMS: The detail is not obtainable. PAST MEDICAL HISTORY: 1. Type 2 diabetes mellitus. 2. Hypertension. 3. Gastroesophageal reflux disease. 4. Arthritis and back pain. 5. Neuropathy. PAST SURGICAL HISTORY: 1. She has hysterectomy. 2. Cholecystectomy. 3. Back surgery. 4. Shoulder surgery and reversal. ALLERGIES: No known drug allergies. MEDICATIONS: On Entrada is reviewed. PERSONAL AND SOCIAL HISTORY: The patient is unknown if ever used tobacco. FAMILY HISTORY: Significant for cardiovascular diseases. PHYSICAL EXAMINATION: GENERAL: Now, the patient is on BiPAP. The patient is almost unresponsive. VITAL SIGNS: The blood pressure is 86-104/52, pulse is 68, respiration is 22, temperature is 97.5, and SpO2 is 95% on BiPAP with 30% oxygen. HEENT: Conjunctivae are pink. Sclerae are not icteric. NECK: Supple, no JVD. CHEST: There are bilateral crackles. No wheezing. HEART: Rhythm regular, normal sound, no murmur. ABDOMEN: Soft, the abdomen is distended. Bowel sounds are muffled. RECTAL: Deferred. EXTREMITIES: No cyanosis, no clubbing. There are 2+ pedal edema. CONSULT REPORT [id number] INDIRA ADAN CENTRAL NERVOUS SYSTEM: The patient is unresponsive. She opened eyes by calling, but the patient is noncommunicative. CHEST RADIOGRAPH: The internal jugular vein is in place. There is a development of patchy alveolar disease throughout both lungs. LABORATORY DATA: CBC: The WBC is 11.1, hemoglobin 10.5, hematocrit 33.7, the platelet count 153. Chemistry: Sodium 138, potassium 5.2, chloride 104, bicarbonate is 19.6, BUN is 46, creatinine 4.2. The troponin is 0.073. Alkaline phosphatase 207. Total bilirubin is 1.07. Calcium is 8.2. ABG: The pH is 7.16, pCO2 is 49.7, the pO2 is 92.7. The lactic acid level is 4.59. The glucose was 41. Repeat ABG: The pH is 7.13, pCO2 is 56.1, the pO2 is 58, bicarbonate 18.7. IMPRESSION: 1. Acute hypoxic hypercapnic respiratory failure. 2. Metabolic as well as respiratory acidosis. 3. Aspiration pneumonia. 4. 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 5. Lactic acidosis. 6. Sepsis. 7. Hyperkalemia. 8. Gaseous abdominal distention, possible ileus. Dr. Dillard follows. 9. Leukocytosis. 10. Clostridium difficile colitis. 12. Hypoglycemia. 13. Obstructive sleep apnea. RECOMMENDATION: 1. Continue the BiPAP. The repeat ABG are worse, we will proceed to intubate the patient. 2. Check the CVP and keep the CVP 10-12. 3. Continue vancomycin. 4. Flagyl IV. 5. Zosyn IV. 6. Check the blood cultures. 7. Check the ammonia level. 8. Follow up chest radiograph and labs. I have detailed discussion with Dr. Fair. Discussed with RN and RT. 9. Spoke with the family. The critical care time is [address] Fair, thank you for involving me in the care of Ms. Adan. TRANSINT:[id number] Voice Confirmation ID: [id number] DOCUMENT ID: [id number] CONSULT REPORT [id number] INDIRA ADAN MUSHTAQ MD at 1356 CC: [id number] DICTATION DATE: 02/24/19 1405 OPERATION SUPERVISOR: 02/24/19 2342 ADM IN [facility] [address] [place] [address]
--- NOTE | 2019-03-11 16:36 | MORECARE ---
CASE MANAGEMENT DISCHARGE SUMMARY PATIENT: INDIRA ADAN UNIT: [id number] ADM DATE: 02/24/19 AGE: 73 : 43 SEX: F ROOM/BED: D.2310 AUTHOR: AJITH,DOC PHYSICIAN: REFERRING PHYSICIAN: ALLA MUNGUIA MD DATE OF SERVICE: 03/11/19 Discharge Plan Patient Name: INDIRA ADAN Facility: [facility]:[place] : 1945 Planned Disposition: Anticipated Discharge Date: Discharge Date: Expected LOS: Initial Reviewer: [email or web address] Initial Review Date: 02/25/2019 Generated: 03/11/19 5:36 pm Comments DCP- Discharge Planning Updated by [email or web address]: Bailey Joel on 03/11/19 3:[address] CM spoke with Radha @ [facility] and they have accepted patient and plan to admit/ transfer on Monday03/12/19. Patient will get PEG and Trach @ [facility]. CM faxed updates and will get disk to chart of all images. Plan to transfer in am. CM will continue to follow and assist as needed with discharge planning / needs DCP- Discharge Planning Updated by [email or web address]: Bailey Joel on 03/08/19 4:[address] CM spoke with Radha at [facility]. Radha stated that they could take patient without trach and PEG. Possibly admit patient on Monday. CM faxed records for eval. CM notified Dr. Khan. CM will continue to follow and assist as needed with discharge planning / needs. DCP- Discharge Planning Updated by [email or web address]: Bailey Joel on 03/07/19 9:[address] CM spoke with daughter NASEEM regarding LTACH. LAMINE signed for [facility] in . Daughter would like for patient to stay here as long as possible. Requesting for trach and PEG be placed while patient is at [facility] if possible. CM will continue to follow and assist as needed with discharge planning needs. DCP- Discharge Planning Updated by [email or web address]: Bailey Joel on 03/05/19 7:[address] CM notified Radha Carr - Dialysis Coordinator with [facility] regarding patient and potential need for hemodialysis post acute care. Family spoke with Dr. Khan today and they will consent to trach and PEG possibly later this week. CM will continue to follow and assist as needed with discharge planning / needs DCP- Discharge Planning Updated by [id number]: Bailey Joel on 02/26/19 11:[address] LATE ENTRY 02/25/19 Patient Name: INDIRA ADAN Admission Status: Elective Accout number: [id number] Admission Date: 02-24-2019 : 1945 Admission Diagnosis: Attending: ALLA MUNGUIA Current LOS: 3 Anticipated DC Date: Planned Disposition: Primary Insurance: MEDICARE PART A ONLY Discharge Planning Comments: CM met with patient's daughter Shani to complete initial dc planning assessment. Patient is currently on vent sedated. CM educated patient on the CM role and verbal consent given by patient to complete assessment. Patient lives at home with her and daughter where she is partially dependent with her care. At discharge patient plans to return home and feels this is a safe discharge. CM discussed availability of home health, rehab services, and medical equipment. 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 Plan to resume [facility] upon discharge. Daughter is refusing at this time to return to inpatient rehab. Patient's daughter denied known discharge needs at this time. CM will continue to follow and will assist as needed with dc plans/needs. Entertainment Lawyer: Bailey Joel DCPIA - Discharge Planning Initial Assessment Updated by [email or web address]: Bailey Joel on 02/26/19 11:58 pm * Is the patient Alert and Oriented? No * How many steps to enter\exit or inside your home? ramp * PCP JAZ PEREZ * Pharmacy [facility] * Preadmission Environment Home with Family * ADLs Partial Dependent * Partial ADLs (Assistance needed) Ambulation Bathing Dressing Eating Medication Management Toileting Transfers * Other Equipment OMARI BSC, WALKER, SHOWER W BARS, LIFT CHAIR * List name and contact numbers for known caregivers / representatives who currently or will assist patient after discharge: SHANI ADAN - DAUGHTER- [phone] * Verbal permission to speak to the caregivers and representatives has been obtained from the patient. N/A * Community resources currently utilized Home Health * Please name any agencies selected above. [facility] * Additional services required to return to the preadmission environment? No * Can the patient safely return to the preadmission environment? Yes * Has this patient been hospitalized within the prior 30 days at any hospital? Yes Last DP export: 03/08/19 4:31 Patient Name: INDIRA ADAN Page [id number] at 1636 All edits/amendments must be made on the electronic document DICTATION DATE: 03/11/191635 KIT PLANNER: BAL 03/11/191635 RPT#: [id number] DC DATE: STATUS: ADM IN [facility] [address] [place] [address] END OF REPORT
--- NOTE | 2019-03-11 19:00 | NUR ---
SHIFT ASSESSMENT COMPLETE. VITAL SIGNS STABLE. NO VISUAL CUES OF DISTRESS NOTED. WILL CONTINUE TO MONITOR.
--- NOTE | 2019-03-11 21:00 | NUR ---
VITAL SIGNS STABLE. NO VISUAL CUES OF DISTRESS NOTED. WILL CONTINUE TO MONITOR.
--- NOTE | 2019-03-11 23:00 | NUR ---
VITAL SIGNS STABLE. NO VISUAL CUES OF DISTRESS NOTED. WILL CONTINUE TO MONITOR.
[2019-03-12] VITALS (14 sets, daily range): BP systolic 97–114; BP diastolic 45–75
--- NOTE | 2019-03-12 01:00 | NUR ---
VITAL SIGNS STABLE. NO VISUAL CUES OF DISTRESS NOTED. WILL CONTINUE TO MONITOR.
--- NOTE | 2019-03-12 03:00 | NUR ---
VITAL SIGNS STABLE. NO VISUAL CUES OF DISTRESS NOTED. WILL CONTINUE TO MONITOR.
--- NOTE | 2019-03-12 05:00 | NUR ---
VITAL SIGNS STABLE. NO VISUAL CUES OF DISTRESS NOTED. WILL CONTINUE TO MONITOR.
[2019-03-12 05:35] LABS: BASOPHILS 0 % (0-2); EOSINOPHILS 0.8 % (0-7); HEMATOCRIT 24.3 % (36.0-48.0); HEMOGLOBIN 7.9 g/dL (12-16); IMMATURE GRANULOCYTES 0.3 % (0-5); LYMPHOCYTES 5.5 % (15-50); MCH 29.9 pg (26.0-34.0); MCHC 32.5 g/dL (31.0-37.0); MEAN PLATELET VOLUME 11.2 fL (7.4-10.4); MONOCYTES 9.5 % (2-11); NEUTROPHILS 83.9 % (40-80); PLATELET COUNT 73 10x3/uL (130-400); RBC 2.64 10x6/uL (4.00-5.40); WBC 6.3 10x3/uL (4.8-10.8)
[2019-03-12 05:57] LABS: ALBUMIN 3.8 g/dL (3.4-5.0); BILIRUBIN - TOTAL 7.47 mg/dL (0.2-1.3); CALCIUM 9.3 mg/dL (8.5-10.1); CARBON DIOXIDE 22.7 mmol/L (21.0-32.0); CREATININE - SERUM 2.8 mg/dL (0.6-1.3); POTASSIUM - SERUM 3.7 mmol/L (3.5-5.1); PROTEIN - SERUM 6.6 g/dL (6.4-8.2)
--- NOTE | 2019-03-12 07:00 | NUR ---
REPORT RECEIVED. ASSESSMENT COMPLETE PER FLOW SHEET. VSS. NONEW CHANGES PT RESTING COMFORTABLY WILL CONTINUE TO MONITOR
--- NOTE | 2019-03-12 07:25 | NUR ---
DR BLANCHARD AT BEDSIDE GIVEN UDPATE NO NEW ORDERS AT THIS TIME.
--- NOTE | 2019-03-12 08:50 | NUR ---
FAMILY CALLED [facility]ATED [facility]. NURSE ON PHONE FOR 7 MIN. UNABLE TO PROVIDE ALL ANSWERS AT THIS TIME, NURSE EXPLAINED PHYSICIANS ON UNIT AND HAD TO GET OFF PHONE. PT FAMILY CALLED BACK IMMEDIATELY TO SPEAK WITH CHARGE NURSE.
--- NOTE | 2019-03-12 09:56 | NUR ---
NURSE SPENT 13 MINUTES ON PHONE WITH FAMILY ANSWERED ALL QUESTIONS.
[2019-03-12 10:14] LABS: PLATELET ESTIMATE DECREASED
--- NOTE | 2019-03-12 11:00 | NUR ---
REASSESSMENT COMPLET EPER FLOW SHEET. VSS. DIALYSIS AT BEDSIDE NO NEW CHANGS WILL CONTINUE TO MONITOR
--- NOTE | 2019-03-12 12:44 | MORECARE ---
CASE MANAGEMENT DISCHARGE SUMMARY PATIENT: INDIRA ADAN UNIT: [id number] ADM DATE: 02/24/19 AGE: 73 : 44 SEX: F ROOM/BED: D.2310 AUTHOR: AJITH,DOC PHYSICIAN: REFERRING PHYSICIAN: ALLA MUNGUIA MD DATE OF SERVICE: 03/12/19 Discharge Plan Patient Name: INDIRA ADAN Facility: [facility]:[place] : 1945 Planned Disposition: Anticipated Discharge Date: Discharge Date: Expected LOS: Initial Reviewer: [email or web address] Initial Review Date: 02/25/2019 Generated: 03/12/19 1:43 pm Comments DCP- Discharge Planning Updated by [email or web address]: Bailey Joel on 03/12/19 11:[address] CM spoke with Radha @ [facility] plan is for patient to transfer via ambulance around 2:30. CM faxed updated records and [facility]. [facility] notified for pick-up. Disk on chart to send with patient. Nursing to call report to [phone]. CM notified daughter of time of potential transfer. CM will continue to follow and assist as needed with discharge planning needs. DCP- Discharge Planning Updated by [email or web address]: Bailey Joel on 03/11/19 3:[address] CM spoke with Radha @ [facility] and they have accepted patient and plan to admit/ transfer on Monday03/12/19. Patient will get PEG and Trach @ [facility]. CM faxed updates and will get disk to chart of all images. Plan to transfer in am. CM will continue to follow and assist as needed with discharge planning / needs DCP- Discharge Planning Updated by [email or web address]: Bailey Joel on 03/08/19 4:[address] CM spoke with Radha at [facility] . Radha stated that they could take patient without trach and PEG. Possibly admit patient on Monday. CM faxed records for eval. CM notified Dr. Khan. CM will continue to follow and assist as needed with discharge planning / needs. DCP- Discharge Planning Updated by [email or web address]: Bailey Joel on 03/07/19 9:[address] CM spoke with daughter POFlor regarding LTACH. LAMINE signed for [facility] in [place]. Daughter would like for patient to stay here as long as possible. Requesting for trach and PEG be placed while patient is at [facility] if possible. CM will continue to follow and assist as needed with discharge planning needs. DCP- Discharge Planning Updated by [email or web address]: Bailey Joel on 03/05/19 7:[address] CM notified Radha Alexiscorbinrayhsawn - Dialysis Coordinator with [facility] regarding patient and potential need for hemodialysis post acute care. Family spoke with Dr. Khan today and they will consent to trach and PEG possibly later this week. CM will continue to follow and assist as needed with discharge planning / needs DCP- Discharge Planning Updated by [email or web address]: Bailey Joel on 02/26/19 11:[address] LATE ENTRY 02/25/19 Patient Name: INDIRA ADAN Admission Status: Elective Accout number: [id number] Admission Date: 02-24-2019 : 1945 Admission Diagnosis: Attending: ALLA MUNGUIA Current LOS: 3 Anticipated DC Date: Planned Disposition: Primary Insurance: MEDICARE PART A ONLY Discharge Planning Comments: CM met with patient's daughter Shani to complete initial dc planning assessment. Patient is currently on vent sedated. CM educated patient on the CM role and verbal consent given by patient to complete assessment. Patient lives at home with her and daughter where she is partially dependent with her care. At discharge patient plans to return home and feels this is a safe discharge. CM discussed availability of home health, rehab services, and medical equipment. Her daughter will be her driver trainee home. Plan to resume [facility] upon discharge. Daughter is refusing at this time to return to inpatient rehab. Patient's daughter denied known discharge needs at this time. CM will continue to follow and will assist as needed with dc plans/needs. Security Public Safety Officer: Bailey Joel DCPIA - Discharge Planning Initial Assessment Updated by [email or web address]: Bailey Jeol on 02/26/19 11:58 pm * Is the patient Alert and Oriented? No * How many steps to enter\exit or inside your home? ramp * PCP [facility] * [facility]acy [facility] * Preadmission Environment Home with Family * ADLs Partial Dependent * Partial ADLs (Assistance needed) Ambulation Bathing Dressing Eating Medication Management Toileting Transfers * Other Equipment OMARI BSC, WALKER, SHOWER W BARS, LIFT CHAIR * List name and contact numbers for known caregivers / representatives who currently or will assist patient after discharge: SHANI ADAN - DAUGHTER- [phone] * Verbal permission to speak to the caregivers and representatives has been obtained from the patient. N/A * Community resources currently utilized Home Health * Please name any agencies selected above. [facility] * Additional services required to return to the preadmission environment? No * Can the patient safely return to the preadmission environment? Yes * Has this patient been hospitalized within the prior 30 days at any hospital? Yes Coverage Notice Reviewer: [id number] Matthew Joel Notice Issued Date-Time: 03/11/2019 14:00 Notice Type: IM Discharge Notice Notice Delivered To: Family Member Relationship to Patient: Daughter Full Stack Web Developer Name: SHANI ADAN Delivery Method: HAND - Hand Delivered Faye Days: Prior Verbal Notification: Recipient Understood Notice: Yes Recipient Signature: Yes Med Rec Note Co-signed by Attending: Coverage Notice Comment: Last DP export: 03/11/19 3:36 Patient Name: INDIRA ADNA Page [id number] at 1244 All edits/amendments must be made on the electronic document DICTATION DATE: 03/12/191242 MED CARE MANAGER: BAL 03/12/19 124 RPT#: [id number] DC DATE: STATUS: ADM IN [facility] [address] [place] [address] END OF REPORT
--- NOTE | 2019-03-12 13:07 | NUR ---
DIALYSIS FINISHED AT THIS TIME. 2.5 L REMOVED. VSS. WILL CONTINUE TO MONITOR
--- NOTE | 2019-03-12 16:10 | NUR ---
EMS AT BEDSIDE GIVEN UDPATE. PT LEFT. ELIZABETH GIVE UDPATE.
[2019-03-13 13:10] LABS: AMPHOTERICIN B MIC 1.0 ug/mL (())
--- NOTE | 2019-03-13 16:16 | MORECARE ---
CASE MANAGEMENT DISCHARGE SUMMARY PATIENT: INDIRA ADAN UNIT: [id number] ADM DATE: 02/24/19 AGE: 73 : 44 SEX: F ROOM/BED: D.2310 AUTHOR: AJITH,DOC PHYSICIAN: REFERRING PHYSICIAN: ALLA MUNGUIA MD DATE OF SERVICE: 03/13/19 Discharge Plan Patient Name: INDIRA ADAN Facility: [facility]:[place] : 1945 Planned Disposition: Anticipated Discharge Date: Discharge Date: 03/12/2019 Expected LOS: Initial Reviewer: [email or web address] Initial Review Date: 02/25/2019 Generated: 03/13/19 5:16 pm Comments DCP- Discharge Planning Updated by [email or web address]: Bailey Joel on 03/12/19 11:[address] CM spoke with Radha @ [facility] plan is for patient to transfer via ambulance around 2:30. CM faxed updated records and [facility]. [facility] notified for pick-up. Disk on chart to send with patient. Nursing to call report to [phone]. CM notified daughter of time of potential transfer. CM will continue to follow and assist as needed with discharge planning needs. DCP- Discharge Planning Updated by [id number]: Bailey Joel on 03/11/19 3:[address] CM spoke with Radha @ [facility] and they have accepted patient and plan to admit/ transfer on Monday03/12/19. Patient will get PEG and Trach @ [facility]. CM faxed updates and will get disk to chart of all images. Plan to transfer in am. CM will continue to follow and assist as needed with discharge planning / needs DCP- Discharge Planning Updated by [id number]: Bailey Joel on 03/08/19 4:[address] CM spoke with Radha at [facility] . Radha stated that they could take patient without trach and PEG. Possibly admit patient on Monday. CM faxed records for eval. CM notified Dr. Khan. CM will continue to follow and assist as needed with discharge planning / needs. DCP- Discharge Planning Updated by [email or web address]: Bailey Joel on 03/07/19 9:[address] CM spoke with daughter NASEEM regarding LTACH. LAMINE signed for [facility] in [place]. Daughter would like for patient to stay here as long as possible. Requesting for trach and PEG be placed while patient is at [facility] if possible. CM will continue to follow and assist as needed with discharge planning needs. DCP- Discharge Planning Updated by [id number]: Bailey Joel on 03/05/19 7:[address] CM notified Radha Alexiscorbinrayshawn - Dialysis Coordinator with [facility] regarding patient and potential need for hemodialysis post acute care. Family spoke with Dr. Khan today and they will consent to trach and PEG possibly later this week. CM will continue to follow and assist as needed with discharge planning / needs DCP- Discharge Planning Updated by [email or web address]: Bailey Joel on 02/26/19 11:[address] LATE ENTRY 02/25/19 Patient Name: INDIRA ADAN Admission Status: Elective Accout number: [id number] Admission Date: 02-24-2019 : 1945 Admission Diagnosis: Attending: ALLA MUNGUIA Current LOS: 3 Anticipated DC Date: Planned Disposition: Primary Insurance: MEDICARE PART A ONLY Discharge Planning Comments: CM met with patient's daughter Shani to complete initial dc planning assessment. Patient is currently on vent sedated. CM educated patient on the CM role and verbal consent given by patient to complete assessment. Patient lives at home with her and daughter where she is partially dependent with her care. At discharge patient plans to return home and feels this is a safe discharge. CM discussed availability of home health, rehab services, and medical equipment. Her daughter will be her miniature train driver home. Plan to resume [facility] upon discharge. Daughter is refusing at this time to return to inpatient rehab. Patient's daughter denied known discharge needs at this time. CM will continue to follow and will assist as needed with dc plans/needs. Child Development Associate Teacher: Bailey Joel DCPIA - Discharge Planning Initial Assessment Updated by [email or web address]: Bailey Joel on 02/26/19 11:58 pm * Is the patient Alert and Oriented? No * How many steps to enter\exit or inside your home? ramp * PCP [facility] * [facility] * Preadmission Environment Home with Family * ADLs Partial Dependent * Partial ADLs (Assistance needed) Ambulation Bathing Dressing Eating Medication Management Toileting Transfers * Other Equipment OMARI BSC, WALKER, SHOWER W BARS, LIFT CHAIR * List name and contact numbers for known caregivers / representatives who currently or will assist patient after discharge: SHANI ADAN - DAUGHTER- [phone] * Verbal permission to speak to the caregivers and representatives has been obtained from the patient. N/A * Community resources currently utilized Home Health * Please name any agencies selected above. [facility] * Additional services required to return to the preadmission environment? No * Can the patient safely return to the preadmission environment? Yes * Has this patient been hospitalized within the prior 30 days at any hospital? Yes Coverage Notice Reviewer: [id number] Matthew Joel Notice Issued Date-Time: 03/11/2019 14:00 Notice Type: IM Discharge Notice Notice Delivered To: Family Member Relationship to Patient: Daughter Airbrush Artist Technical Name: SHANI ADAN Delivery Method: HAND - Hand Delivered Faye Days: Prior Verbal Notification: Recipient Understood Notice: Yes Recipient Signature: Yes Med Rec Note Co-signed by Attending: Coverage Notice Comment: Last DP export: 03/12/19 11:44 Patient Name: INDIRA ADAN Page [id number] at 1616 All edits/amendments must be made on the electronic document DICTATION DATE: 03/13/191615 VENETIAN BLIND MACHINE OPERATOR: BAL 03/13/191615 RPT#: [id number] DC DATE:03/12/19 STATUS: DIS IN [facility] [address] [place] [address] END OF REPORT
== END 2019-03-12 16:37 | disposition short-term general hospital (02) | DRG 870 ==
LOC: D.ICU 08:11
PROVIDERS: Family Medicine; Internal Medicine Hematology & Oncology; Internal Medicine Nephrology; Internal Medicine Pulmonary Disease; ADMIT Internal Medicine Nephrology; ATTEND Internal Medicine Nephrology
PROC: 05HM33Z Insertion of Infusion Device into Right Internal Jugular Vein, Percutaneous Approach (ICD-10-PCS; principal; 2019-02-24)
PROC: 5A1955Z Respiratory Ventilation, Greater than 96 Consecutive Hours (ICD-10-PCS; 2019-02-24)
PROC: 0BH17EZ Insertion of Endotracheal Airway into Trachea, Via Natural or Artificial Opening (ICD-10-PCS; 2019-02-24)
PROC: 0B9B8ZZ Drainage of Left Lower Lobe Bronchus, Via Natural or Artificial Opening Endoscopic (ICD-10-PCS; 2019-02-26)
PROC: 0B968ZZ Drainage of Right Lower Lobe Bronchus, Via Natural or Artificial Opening Endoscopic (ICD-10-PCS; 2019-02-26)
PROC: 05HY33Z Insertion of Infusion Device into Upper Vein, Percutaneous Approach (ICD-10-PCS; 2019-02-28)
DX: A41.9 Sepsis, unspecified organism (principal); J96.02 Acute respiratory failure with hypercapnia; J69.0 Pneumonitis due to inhalation of food and vomit; R65.21 Severe sepsis with septic shock; G92 Toxic encephalopathy; I50.31 Acute diastolic (congestive) heart failure; J96.01 Acute respiratory failure with hypoxia; N17.0 Acute kidney failure with tubular necrosis; R53.2 Functional quadriplegia; E87.2 Acidosis; A04.72 Enterocolitis due to Clostridium difficile, not specified as recurrent; I13.0 Hypertensive heart and chronic kidney disease with heart failure and stage 1 through stage 4 chronic kidney disease, or unspecified chronic kidney disease; Z68.43 Body mass index [BMI] 50.0-59.9, adult; I82.622 Acute embolism and thrombosis of deep veins of left upper extremity; N39.0 Urinary tract infection, site not specified; E87.5 Hyperkalemia; G47.33 Obstructive sleep apnea (adult) (pediatric); E16.2 Hypoglycemia, unspecified; F41.9 Anxiety disorder, unspecified; M19.90 Unspecified osteoarthritis, unspecified site; D64.9 Anemia, unspecified; E11.22 Type 2 diabetes mellitus with diabetic chronic kidney disease; N18.3 Chronic kidney disease, stage 3 (moderate); E66.01 Morbid (severe) obesity due to excess calories; G72.89 Other specified myopathies; D69.6 Thrombocytopenia, unspecified; N05.9 Unspecified nephritic syndrome with unspecified morphologic changes